=== PATIENT | male | born 1940 | race Caucasian/White ===

== ENCOUNTER 2020-12-06 12:00 | Inpatient (IN) ==
[2020-12-06] MEDS ORDERED: SODIUM CHLORIDE 0.9% 1000ML 250 ML IV ONE (14:10)
--- NOTE | 2020-12-06 14:16 | Emergency Department Note ---
Impression & Plan Pulmonary edema, Congestive heart failure, Weakness ED Provider Note Provider: Faraz Mathews MD DATE OF SERVICE: 12/06/2020 CHIEF COMPLAINT: Shortness of breath, not eating and drinking HISTORY OF PRESENT ILLNESS: Patient is a 80-year-old gentleman history of nonischemic cardiomyopathy, BPH, and PJ presenting here today via ambulance from home complaining over the past 2 to 3 days of some shortness of breath. Also states that he has not been eating and drinking well his tongue feels very dry and sticking the top of his mouth. Patient states anytime she tries to eat or drink he gets nauseous. Denies any chest pain or abdominal pain. Denies fever or chills. Patient states he is vaccinated for Covid. Patient states he has a small chronic amount of bilateral leg swelling but this is unchanged. Denies any diarrhea. No sick contacts reported. Patient states he supposed to use a CPAP at night but does not. Patient does states this is allergy season for him. Patient does report a bit of a cough. No recent travel. Patient also some generalized weakness. REVIEW OF SYSTEMS: A total of 10 review of systems was obtained and negative except as stated above in the HPI. PAST MEDICAL HISTORY: As noted above MEDICATIONS: Reviewed home medications SOCIAL HISTORY: Lives at home with , spends part of the year here in part of the year in [place] PHYSICAL EXAM: GENERAL: alert and oriented in no acute distress on stretcher Head: normocephalic and atraumatic EYES: No injection, discharge or icterus. NECK: Trachea midline. Supple. ENT: Mucous membranes pink however somewhat dry. LUNGS: Airway patent. No retractions. Breath sounds with crackles in the bases. HEART: Regular rate and rhythm. No chest wall tenderness ABDOMEN: Soft and non-tender, without guarding or rebound. SKIN: Acyanotic, warm, dry, without rashes EXTREMITIES: Without tenderness with some 1+ bilateral pedal edema. NEUROLOGICAL: No focal deficits. No aphasia. No facial droop or slurred speech. EK beats minute sinus rhythm occasional PVC and PAC. QTc 495. LVH findings. CONTINUOUS CARDIAC MONITORING: was ordered and showed a heart rate of 60s to 90s bpm in sinus rhythm occasional PVC and PAC Patient's laboratory studies and imaging reviewed. Differential includes Infection, dehydration, metabolic abnormality, hypo/hyperglycemia, electrolyte disturbance, anemia, hypoxia, cardiac sources, intracerebral event, toxicologic, neurologic, as well as other pathologies. IMPRESSION/MEDICAL DECISION MAKING: Patient reports limited intake and states his tongue feels very dry and does appear to have some dry mucosa on exam. Some mild bilateral leg edema is noted but he states this is baseline. Patient with some slight crackles in the bilateral bases of the lungs. Does have a history of some cardiomyopathy. Requiring intermittently 2 L of oxygen. Noncompliant with home CPAP may be contributing. No fevers or other infectious symptoms reported. Covid test was sent for completeness. Benign abdomen on exam and I doubt acute intra-abdominal pathology that to too much. Initially given a small IV fluid bolus 250mL as he states he has not been drinking well and appears quite dry in his oral mucosa Chest x-ray per radiology returned per radiology with concerns for cardiomegaly pulmonary edema small pleural effusions as well as some right midlung opacities. Patient without significant leukocytosis and again again fevers and lower suspicion this is pneumonia. Question fluid overload. On further review of scanned in cardiology records in February 2018 had an EF of 40 to 45% on outpatient echo. Given this we will give a small IV dose of Lasix. Patient denies any chest pain and does not have an significantly elevated troponin today. The minimal elevation questions chronic nature versus some fluid overload induced demand. Patient given aspirin. Will defer full anticoagulation this time. Given the x-ray findings lower suspicion this represents PE. Given his hypoxia and evidence of fluid overload believe further cardiac evaluation and diuresis on the inpatient basis is indicated. Patient was agreeable. Hospitalist was contacted. DIAGNOSIS: CHF, pulmonary edema, hypoxia, elevated troponin DISPOSITION: Hospitalist will evaluate Patient was agreeable with this plan. Past Med/Surg History Medical History (Updated 12/06/20 @ 17:47 by Speedy Vu MD) BPH (benign prostatic hyperplasia) Hearing difficulty Hyperlipidemia Kidney stones Lumbar spondylosis MVP (mitral valve prolapse) "MILD" -- follows w/ Dr. Noyola Osteoarthritis PVC (premature ventricular contraction) Sleep apnea no device as of yet -- appt on 12/07 to determine if device needed or not Stenosis, cervical spine Surgical History History of cardiac cath 4 YEARS AGO/NO STENTS History of cataract surgery left cataract 09/29/2018. 2mg versed, 50mcg fentanyl. no issues. 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 Hx of transurethral resection of prostate Family History Brother Prostate cancer Father Kidney stones Other No family history of adverse response to anesthesia Social History Smoking Status: Never smoker Second Hand Exposure: Yes (PREVIOUS EXPOSURE); Hx Alcohol Use: Yes Alcohol type: beer Hx Substance Use: No Preferred Language: Samoan Communication Ability: Effective Visual Impairment: Diminished Hearing Ability: Use of Hearing Aid Hygiene Teacher Required: No Beliefs That Will Affect Care: None marital status: Current Living Situation: Spouse current occupational status: retired Feels Safe at Home: Yes Childhood Exposure to Second-Hand Smoke: No caffeine: Yes (2 CUPS OF COFFEE DAILY) Dental Care, Regularly: Yes Physical Activity Frequency: Does not Exercise Physical Activity Frequency Comment: DUE TO PHYSICAL CONDITION Seatbelt Use: always Sunscreen Use: No Assistive Devices: Cane, Glasses, Hearing Aid - Bilateral and Walker Allergies Allergies Allergy/AdvReac Type Severity Reaction Status Date / Time Penicillins Allergy Severe Dizziness Verified 12/06/20 13:58 & SHORTNESS OF BREATH Home Meds Home Medications Medication Instructions Recorded Confirmed ibuprofen-diphenhydramine citrate 2 cap PO HS PRN 01/24/19 12/06/20 200 mg-38 mg tablet (Advil PM) cetirizine 10 mg tablet (Zyrtec) 5 mg PO DAILY PRN 09/21/19 12/06/20 metoprolol succinate 25 mg capsule 25 mg PO HS 01/12/20 12/06/20 sprinkle, ext. release 24 hr Brioschi 2 tsp PO DIRECTED PRN 12/06/20 12/06/20 naproxen sodium 220 mg tablet 440 mg PO BID PRN 12/06/20 12/06/20 (Aleve) Previous Rx's Medication Instructions Recorded CPAP Machine #1 ea 01/12/20 simvastatin 40 mg tablet 40 mg PO HS #90 tab 03/26/20 finasteride 5 mg tablet 5 mg PO HS #90 tab 04/16/20 silodosin 8 mg capsule (Rapaflo) 8 mg PO HS #90 cap 10/01/20 Results & Data (ED) Vital Signs Vital Signs - 24 hr 12/06/20 12:06 12/06/20 12:08 12/06/20 12:11 Temperature 36.9 C Temperature Source Oral Pulse Rate 92 H 100 H Pulse Rate [Apical] Pulse Rate from SpO2 Sensor 93 H Respiratory Rate 18 24 Respiratory Effort / Characteristics Non-Labored Spontaneous Short of Breath Respiratory Depth Shallow Shallow Respiratory Pattern Regular Blood Pressure 160/103 H 160/103 H Blood Pressure [Left Arm] Blood Pressure Mean 122 122 Blood Pressure Mean [Left Arm] Blood Pressure Position Semi-fowlers Blood Pressure Position [Left Arm] Pulse Oximetry 95 93 Oxygen Delivery Method Nasal Cannula Room Air Oxygen Flow Rate 2 Sepsis Recent Fever Within 48 Hours No Sepsis New/Unexplained Change in Mental Status No Sepsis Action Taken by Nursing No Action Required Oxygen Flow Rate - Titration Pulse Oximetry Post Tiitration 12/06/20 12:15 12/06/20 13:44 12/06/20 14:01 Temperature Temperature Source Pulse Rate 78 Pulse Rate [Apical] 69 Pulse Rate from SpO2 Sensor 77 Respiratory Rate 24 20 Respiratory Effort / Characteristics Respiratory Depth Respiratory Pattern Blood Pressure Blood Pressure [Left Arm] 154/75 H Blood Pressure Mean Blood Pressure Mean [Left Arm] 101 Blood Pressure Position Blood Pressure Position [Left Arm] Semi-fowlers Pulse Oximetry 88 L 94 96 Oxygen Delivery Method Room Air Nasal Cannula Nasal Cannula Oxygen Flow Rate 2 2 Sepsis Recent Fever Within 48 Hours Sepsis New/Unexplained Change in Mental Status Sepsis Action Taken by Nursing Oxygen Flow Rate - Titration 2 Pulse Oximetry Post Tiitration 95 12/06/20 14:19 12/06/20 16:00 12/06/20 16:34 Temperature Temperature Source Pulse Rate 81 Pulse Rate [Apical] 74 Pulse Rate from SpO2 Sensor 79 Respiratory Rate 16 Respiratory Effort / Characteristics Respiratory Depth Respiratory Pattern Blood Pressure 144/105 H Blood Pressure [Left Arm] 144/105 H Blood Pressure Mean 118 Blood Pressure Mean [Left Arm] 118 Blood Pressure Position Blood Pressure Position [Left Arm] Pulse Oximetry 95 98 97 Oxygen Delivery Method Nasal Cannula Nasal Cannula Oxygen Flow Rate 2 2 Sepsis Recent Fever Within 48 Hours Sepsis New/Unexplained Change in Mental Status Sepsis Action Taken by Nursing Oxygen Flow Rate - Titration Pulse Oximetry Post Tiitration 12/06/20 17:37 Temperature Temperature Source Pulse Rate 85 Pulse Rate [Apical] Pulse Rate from SpO2 Sensor 87 Respiratory Rate 24 Respiratory Effort / Characteristics Respiratory Depth Respiratory Pattern Blood Pressure 148/110 H Blood Pressure [Left Arm] Blood Pressure Mean 122 Blood Pressure Mean [Left Arm] Blood Pressure Position Blood Pressure Position [Left Arm] Pulse Oximetry 97 Oxygen Delivery Method Oxygen Flow Rate Sepsis Recent Fever Within 48 Hours Sepsis New/Unexplained Change in Mental Status Sepsis Action Taken by Nursing Oxygen Flow Rate - Titration Pulse Oximetry Post Tiitration Laboratory Data Result diagrams: 12/06/20 14:02 12/06/20 14:02 Lab Results 12/06/20 12/06/20 12/06/20 Range/Units 14:02 14:02 14:02 WBC 9.19 (4.8-10.8) K/uL RBC 4.37 L (4.7-6.1) M/uL Hgb 13.1 L (14.0-18.0) g/dL Hct 40.1 L (42-52) % MCV 91.8 (80-100) fL MCH 30.0 (25-34) pg MCHC 32.7 (32-36) g/dL RDW Std Deviation 55.5 H (36.4-46.3) fL RDW Coeff of Inderjit 16.6 H (11.5-14.5) % Plt Count 260 (130-400) K/uL MPV 9.6 (7.4-10.4) fL Immature Gran % (Auto) 0.2 % Neut % (Auto) 75.5 % Lymph % (Auto) 14.4 % Baker % (Auto) 8.1 % Eos % (Auto) 1.3 % Baso % (Auto) 0.5 % Neut # (Auto) 6.94 H (1.4-6.5) K/uL Lymph # (Auto) 1.32 (1.2-3.4) K/uL Baker # (Auto) 0.74 H (0.11-0.59) K/uL Eos # (Auto) 0.12 (0-0.5) K/uL Baso # (Auto) 0.05 (0-0.2) K/uL Immature Gran # (Auto) 0.02 (0.00-0.02) K/uL PT 13.0 H (9.0-12.0) Seconds INR 1.3 H (0.9-1.1) APTT 25.7 (21.0-31.0) Seconds PTT Ratio 1.0 Sodium 142 (136-145) mmol/L Potassium 3.6 (3.5-5.1) mmol/L Chloride 110 H (98-107) mmol/L Carbon Dioxide 26 (21-32) mmol/L Anion Gap 6.0 (3-11) BUN 18 (7-18) mg/dl Creatinine 0.99 (0.6-1.4) mg/dl Est Cr Clr Drug Dosing 62.5 ml/min Est GFR ( Amer) 83.6 ml/min Est GFR (Non-Af Amer) 72.1 ml/min BUN/Creatinine Ratio 18.1 (10-20) Glucose 99 (70-99) mg/dl Calcium 9.2 (8.5-10.1) mg/dl Magnesium 2.0 (1.8-2.4) mg/dl Total Bilirubin 2.2 H (0.2-1) mg/dl AST 18 (15-37) U/L ALT 18 (12-78) U/L Alkaline Phosphatase 90 (45-117) U/L Troponin I 0.080 H* (0-0.045) ng/ml NT-Pro-B Natriuret Pep 01570 H (0-1800) pg/ml Total Protein 6.8 (6.4-8.2) gm/dl Albumin 3.0 L (3.4-5.0) gm/dl Globulin 3.8 (2.5-4.0) gm/dl Albumin/Globulin Ratio 0.8 L (0.9-2) COVID-19 Eval Order SARS-CoV-2 (PCR) (Negative) 12/06/20 12/06/20 Range/Units 14:26 14:26 WBC (4.8-10.8) K/uL RBC (4.7-6.1) M/uL Hgb (14.0-18.0) g/dL Hct (42-52) % MCV (80-100) fL MCH (25-34) pg MCHC (32-36) g/dL RDW Std Deviation (36.4-46.3) fL RDW Coeff of Inderjit (11.5-14.5) % Plt Count (130-400) K/uL MPV (7.4-10.4) fL Immature Gran % (Auto) % Neut % (Auto) % Lymph % (Auto) % Baker % (Auto) % Eos % (Auto) % Baso % (Auto) % Neut # (Auto) (1.4-6.5) K/uL Lymph # (Auto) (1.2-3.4) K/uL Baker # (Auto) (0.11-0.59) K/uL Eos # (Auto) (0-0.5) K/uL Baso # (Auto) (0-0.2) K/uL Immature Gran # (Auto) (0.00-0.02) K/uL PT (9.0-12.0) Seconds INR (0.9-1.1) APTT (21.0-31.0) Seconds PTT Ratio Sodium (136-145) mmol/L Potassium (3.5-5.1) mmol/L Chloride (98-107) mmol/L Carbon Dioxide (21-32) mmol/L Anion Gap (3-11) BUN (7-18) mg/dl Creatinine (0.6-1.4) mg/dl Est Cr Clr Drug Dosing ml/min Est GFR ( Amer) ml/min Est GFR (Non-Af Amer) ml/min BUN/Creatinine Ratio (10-20) Glucose (70-99) mg/dl Calcium (8.5-10.1) mg/dl Magnesium (1.8-2.4) mg/dl Total Bilirubin (0.2-1) mg/dl AST (15-37) U/L ALT (12-78) U/L Alkaline Phosphatase (45-117) U/L Troponin I (0-0.045) ng/ml NT-Pro-B Natriuret Pep (0-1800) pg/ml Total Protein (6.4-8.2) gm/dl Albumin (3.4-5.0) gm/dl Globulin (2.5-4.0) gm/dl Albumin/Globulin Ratio (0.9-2) COVID-19 Eval Order Covid19 at [facility] SARS-CoV-2 (PCR) NEGATIVE (Negative) Administered Medications Discontinued Medications Aspirin (Aspirin Chew 324 Mg) 324 mg PO NOW STA Stop: 12/06/20 15:57 Last Admin: 12/06/20 16:05 Dose: 324 mg Documented by: [id number] Furosemide (Furosemide 40 Mg/4 Ml Vial) 40 mg IV NOW STA Stop: 12/06/20 15:37 Last Admin: 12/06/20 15:44 Dose: 40 mg Documented by: [id number] Sodium Chloride (Nss 1000ml) 250 mls @ 999 mls/hr IV .Q16M ONE Stop: 12/06/20 14:25 Last Infusion: 12/06/20 14:42 Dose: 0 mls/hr Documented by: [id number] Admin: 12/06/20 14:26 Dose: 999 mls/hr Documented by: [id number] Imaging Data Radiologist's Impression: Chest X-Ray 12/06/20 14:10 XR chest 1V portable HISTORY: 80 years-old Male Dyspnea acute shortness of breath COMPARISON: None TECHNIQUE: Portable AP view of the chest FINDINGS: Cardiac silhouette is enlarged. Pulmonary vascular congestion with interstitial coarsening. Small pleural effusions. Bibasilar and right midlung airspace opacities. Degenerative changes of the shoulders and spine. IMPRESSION: 1. Cardiomegaly with pulmonary edema. 2. Small pleural effusions with bibasilar and right midlung airspace opacities. ACT 112: Negative or not required by law. The above report was generated using voice recognition software. It may contain grammatical, syntax or spelling errors. Electronically signed by: Oliverio Hsu M.D. 12/06/2020 2:44 PM Discharge Plan Visit Data Chief Complaint: Shortness of Breath/Dyspnea ED Provider: Faraz Mathews Discharge Problem: Pulmonary edema, Congestive heart failure, Weakness Patient Disposition: Being Evaluated by Hospitalist Discharge Instructions Interventions: ED Discharge Assessment Last Done: 12/06/20 17:53 Forms Stand Alone Forms: [employer] Prescriptions Prescriptions: No Action simvastatin 40 mg tablet 40 mg PO HS Qty: 90 RF: 3 finasteride 5 mg tablet 5 mg PO HS Qty: 90 RF: 3 silodosin [Rapaflo] 8 mg capsule 8 mg PO HS Qty: 90 RF: 3 cetirizine [Zyrtec] 10 mg tablet 5 mg PO DAILY PRN (Reason: Allergy Symptoms) RF: 0 metoprolol succinate 25 mg capsule,sprinkle,ER 24hr 25 mg PO HS RF: 0 (DME) CPAP Machine Misc See Rx Instructions .MEDSUPPLY Qty: 1 RF: 0 Advil PM 200-38 mg Tablet 2 cap PO HS PRN (Reason: Nasal Congestion) RF: 0 naproxen sodium [Aleve] 220 mg Tablet 440 mg PO BID PRN (Reason: Pain) RF: 0 Brioschi 2 tsp PO DIRECTED PRN (Reason: antacid) RF: 0 Referrals Referrals: Peter Sykes MD [Primary Care Provider] - Discharge Problem: Pulmonary edema Qualifiers: Chronicity: acute Qualified Code(s): J81.0 - Acute pulmonary edema Congestive heart failure Qualifiers: Heart failure type: systolic Heart failure chronicity: acute on chronic Qualified Code(s): I50.23 - Acute on chronic systolic (congestive) heart failure
[2020-12-06 14:31] LABS: Basophils # (auto) 0.05 K/uL (0-0.2); Basophils % (auto) 0.5 %; Eosinophils # (auto) 0.12 K/uL (0-0.5); Eosinophils % (auto) 1.3 %; Hematocrit (blood only) 40.1 % (42-52); Hemoglobin 13.1 g/dL (14.0-18.0); Immature Granulocytes # (auto) 0.02 K/uL (0.00-0.02); Immature Granulocytes % (auto) 0.2 %; Lymphocytes # (auto) 1.32 K/uL (1.2-3.4); Lymphocytes % (auto) 14.4 %; Mean Corpuscular Hgb Conc 32.7 g/dL (32-36); Mean Corpuscular Volume 91.8 fL (80-100); Mean Platelet Volume 9.6 fL (7.4-10.4); Monocytes # (auto) 0.74 K/uL (0.11-0.59); Monocytes % (auto) 8.1 %; Neutrophils # (auto) 6.94 K/uL (1.4-6.5); Neutrophils % (auto) 75.5 %; Platelet Count 260 K/uL (130-400); RDW Coefficient of Variation 16.6 % (11.5-14.5); RDW Standard Deviation 55.5 fL (36.4-46.3); Red Blood Count 4.37 M/uL (4.7-6.1); White Blood Count 9.19 K/uL (4.8-10.8)
[2020-12-06 14:38] LABS: BUN Creatinine Ratio 18.1 (10-20); Calcium 9.2 mg/dl (8.5-10.1); Creatinine Clr Calc Pharmacy 62.5 ml/min; Est GFR (African American) 83.6 ml/min; Est GFR (Non-African American) 72.1 ml/min; Potassium 3.6 mmol/L (3.5-5.1)
[2020-12-06 14:42] LABS: INR 1.3 (0.9-1.1); Partial Thromboplastin Time 25.7 Seconds (21.0-31.0)
--- NOTE | 2020-12-06 14:45 | XRay Report ---
XR chest 1V portable HISTORY: 80 years-old Male Dyspnea acute shortness of breath COMPARISON: None TECHNIQUE: Portable AP view of the chest FINDINGS: Cardiac silhouette is enlarged. Pulmonary vascular congestion with interstitial coarsening. Small ple ural effusions. Bibasilar and right midlung airspace opacities. Degenerative changes of the shoulders and spine. IMPRESSION: 1. Cardiomegaly with pulmonary edema. 2. Small pleural effusions with bibasilar and right midlung airspace opacities. ACT 112: Negative or not required by law. The above report was generated using voice recognition software. It may contain grammatical, syntax o r spelling errors. Electronically signed by: Oliverio Hsu M.D. 12/06/2020 2:44 PM
[2020-12-06 14:48] LABS: Albumin Globulin Ratio 0.8 (0.9-2); Bilirubin,Total 2.2 mg/dl (0.2-1); Globulin 3.8 gm/dl (2.5-4.0); Total Protein 6.8 gm/dl (6.4-8.2); Troponin I 0.08 ng/ml (0-0.045)
[2020-12-06] MEDS ORDERED: FUROSEMIDE 40 MG/4 ML VIAL IV STA ×2 (15:36→19:00)
[2020-12-06] MEDS ORDERED: ASPIRIN CHEW 324 MG PO STA (15:56)
--- NOTE | 2020-12-06 17:08 | History & Physical Report ---
Date of Service December 06, 2020 History of Present Illness Primary Care Provider: Peter Sykes MD Allergies Allergy/AdvReac Type Severity Reaction Status Date / Time Penicillins Allergy Severe Dizziness Verified 12/06/20 13:58 & SHORTNESS OF BREATH Home Medications Medication Instructions Recorded Confirmed Type ibuprofen-diphenhydramine citrate 2 cap PO HS PRN 01/24/19 12/06/20 History 200 mg-38 mg tablet (Advil PM) cetirizine 10 mg tablet (Zyrtec) 5 mg PO DAILY PRN 09/21/19 12/06/20 History CPAP Machine #1 ea 01/12/20 01/12/20 Rx metoprolol succinate 25 mg capsule 25 mg PO HS 01/12/20 12/06/20 History sprinkle, ext. release 24 hr simvastatin 40 mg tablet 40 mg PO HS #90 tab 03/26/20 12/06/20 Rx finasteride 5 mg tablet 5 mg PO HS #90 tab 04/16/20 12/06/20 Rx silodosin 8 mg capsule (Rapaflo) 8 mg PO HS #90 cap 10/01/20 12/06/20 Rx Brioschi 2 tsp PO DIRECTED PRN 12/06/20 12/06/20 History naproxen sodium 220 mg tablet 440 mg PO BID PRN 12/06/20 12/06/20 History (Aleve) Past Med/Surg History Medical History (Updated 12/06/20 @ 15:53 by Faraz Mathews M.D.) BPH (benign prostatic hyperplasia) Hearing difficulty Hyperlipidemia Kidney stones Lumbar spondylosis MVP (mitral valve prolapse) "MILD" -- follows w/ Dr. Noyola Osteoarthritis PVC (premature ventricular contraction) Sleep apnea no device as of yet -- appt on 12/07 to determine if device needed or not Stenosis, cervical spine Surgical History History of cardiac cath 4 YEARS AGO/NO STENTS History of cataract surgery left cataract 09/29/2018. 2mg versed, 50mcg fentanyl. no issues. 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 Hx of transurethral resection of prostate Family History Brother Prostate cancer Father Kidney stones Other No family history of adverse response to anesthesia Social History Smoking Status: Never smoker Second Hand Exposure: Yes (PREVIOUS EXPOSURE); Hx Alcohol Use: Yes Alcohol type: beer Hx Substance Use: No Preferred Language: Mexican Communication Ability: Effective Visual Impairment: Diminished Hearing Ability: Use of Hearing Aid Appraiser Irrigation Tax Required: No Beliefs That Will Affect Care: None marital status: Current Living Situation: Spouse current occupational status: retired Feels Safe at Home: Yes Childhood Exposure to Second-Hand Smoke: No caffeine: Yes (2 CUPS OF COFFEE DAILY) Dental Care, Regularly: Yes Physical Activity Frequency: Does not Exercise Physical Activity Frequency Comment: DUE TO PHYSICAL CONDITION Seatbelt Use: always Sunscreen Use: No Assistive Devices: Cane, Glasses, Hearing Aid - Bilateral and Walker Results & Data Results & Data ([facility]) Vital Signs (Past 12 Hours) Vital Signs Temp Pulse Pulse Resp BP BP Pulse Ox 12/06/20 16:00 74 16 144/105 H 98 12/06/20 14:19 95 12/06/20 14:01 69 20 154/75 H 96 12/06/20 13:44 78 24 94 12/06/20 12:15 88 L 12/06/20 12:08 36.9 C 100 H 24 160/103 H 93 12/06/20 12:06 92 H 18 160/103 H 95 PG Care Time/CCT Total # of Minutes Spent Total Time Spent with Patient: Total time spent is greater than 50% in coordination of care (as documented) at patient's floor/unit and/or counseling patient: Coding
--- NOTE | 2020-12-06 17:51 | History & Physical Report ---
Date of Service December 06, 2020 Assessment & Plan (1) Acute on chronic systolic CHF (congestive heart failure): Plan: Picture most consistent with acute on chronic systolic heart failureIV Lasix; repeat echo; on metoprolol succinate; continue for now; cardiology input (2) Acute respiratory failure with hypoxia: Plan: Secondary to #1; diuresis (3) Elevated troponin: Plan: Type IIdue to demand ischemia; low-dose aspirin okay; lipid panel for risk stratificationroom increase intensity (4) HTN (hypertension): Plan: At present diuresis; continue home metoprololreassess (5) Hyperlipidemia: Plan: Continue home statin; lipid panel as above (6) BPH (benign prostatic hyperplasia): Plan: Continue finasteride and silodosin (7) PJ (obstructive sleep apnea): Plan: untreated; might need to address, to the extent contributing to decompensation/ Plan: Desires DNR; preventative subcutaneous Lovenox History of Present Illness Chief Complaint: Shortness of breath Primary Care Provider: Peter Sykes MD 80-year-old very pleasant male with a history of hypertension, BPH, hyperlipidemia, obstructive sleep apnea (not using NIV) presents with about 3 days history of shortness of breath; no fever; no angina; reports lower extremity edema but says chronic -since here; in the ER, he was found to be hypoxic but same was easily corrected with 2 L oxygen via nasal cannula. Lab data revealed markedly elevated brain natruretic peptide, mildly elevated troponin, mild anemia; x-ray chest revealed cardiomegaly and pulmonary edema. EKG revealed minor ST-T changes, couplets; he was referred to our service for admission for further evaluation and management. Past records reveal echocardiogram ejection fraction 40 to 45% with global hypokinesis in 2019. Allergies Allergy/AdvReac Type Severity Reaction Status Date / Time Penicillins Allergy Severe Dizziness Verified 12/06/20 13:58 & SHORTNESS OF BREATH Home Medications Medication Instructions Recorded Confirmed Type ibuprofen-diphenhydramine citrate 2 cap PO HS PRN 01/24/19 12/06/20 History 200 mg-38 mg tablet (Advil PM) cetirizine 10 mg tablet (Zyrtec) 5 mg PO DAILY PRN 09/21/19 12/06/20 History CPAP Machine #1 ea 01/12/20 01/12/20 Rx metoprolol succinate 25 mg capsule 25 mg PO HS 01/12/20 12/06/20 History sprinkle, ext. release 24 hr simvastatin 40 mg tablet 40 mg PO HS #90 tab 03/26/20 12/06/20 Rx finasteride 5 mg tablet 5 mg PO HS #90 tab 04/16/20 12/06/20 Rx silodosin 8 mg capsule (Rapaflo) 8 mg PO HS #90 cap 10/01/20 12/06/20 Rx Brioschi 2 tsp PO DIRECTED PRN 12/06/20 12/06/20 History naproxen sodium 220 mg tablet 440 mg PO BID PRN 12/06/20 12/06/20 History (Aleve) Past Med/Surg History Medical History (Updated 12/06/20 @ 19:57 by Speedy Vu MD) BPH (benign prostatic hyperplasia) Hearing difficulty Hyperlipidemia Kidney stones Lumbar spondylosis MVP (mitral valve prolapse) "MILD" -- follows w/ Dr. Noyola Osteoarthritis PVC (premature ventricular contraction) Sleep apnea no device as of yet -- appt on 12/07 to determine if device needed or not Stenosis, cervical spine Surgical History History of cardiac cath 4 YEARS AGO/NO STENTS History of cataract surgery left cataract 09/29/2018. 2mg versed, 50mcg fentanyl. no issues. 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 Hx of transurethral resection of prostate Family History Brother Prostate cancer Father Kidney stones Other No family history of adverse response to anesthesia Social History Smoking Status: Never smoker Second Hand Exposure: Yes (PREVIOUS EXPOSURE); Hx Alcohol Use: Yes Alcohol type: beer Hx Substance Use: No Preferred Language: Croatian Communication Ability: Effective Visual Impairment: Diminished Hearing Ability: Use of Hearing Aid Business Support Required: No Beliefs That Will Affect Care: None marital status: Current Living Situation: Spouse current occupational status: retired Feels Safe at Home: Yes Childhood Exposure to Second-Hand Smoke: No caffeine: Yes (2 CUPS OF COFFEE DAILY) Dental Care, Regularly: Yes Physical Activity Frequency: Does not Exercise Physical Activity Frequency Comment: DUE TO PHYSICAL CONDITION Seatbelt Use: always Sunscreen Use: No Assistive Devices: Cane, Glasses, Hearing Aid - Bilateral and Walker Review of Systems Review of Systems: ALL systems reviewed and negative except as noted in HPI or otherwise stated Physical Exam Physical Exam: Constitutional and general: Mild distress, looks biologic age Head and face: No puffiness, atraumatic Eyes: No scleral icterus, extraocular movements normal Neck: Supple, + JVD Musculoskeletal: No acute joint swelling, no bony abnormalities Skin/dermatologic/integument: Punctate rash lower extremities; erythematous rash trunk Hematologic and lymphatic: pallor +, no petechia Gastrointestinal/abdomen: Nondistended, soft, nonacute Neurologic: Cranial nerves intact, nonfocal Psychiatry: Awake, alert, pleasant, communicative Cardiovascular: Heart rhythm regular, no rub, no murmur, no gallop Respiratory: Chest movements equal, no use of accessory muscles, nasal crepts Extremities: 2+ edema, no cyanosis Results & Data Results & Data ([facility]) Vital Signs (Past 12 Hours) Vital Signs Temp Pulse Pulse Resp BP BP Pulse Ox 12/06/20 16:00 74 16 144/105 H 98 12/06/20 14:19 95 12/06/20 14:01 69 20 154/75 H 96 12/06/20 13:44 78 24 94 12/06/20 12:15 88 L 12/06/20 12:08 36.9 C 100 H 24 160/103 H 93 12/06/20 12:06 92 H 18 160/103 H 95 Code Status & VTE Plan Code Status DNR/DNI VTE Prophylaxis Plan VTE Prophylaxis will be ordered: Yes Critical Care Time 65 minutes PG Care Time/CCT Total # of Minutes Spent Total Time Spent with Patient: Total time spent is greater than 50% in coordination of care (as documented) at patient's floor/unit and/or counseling patient: Coding Level of Care Code 55371 Initial Inpt Care Lvl 3 Diagnoses HTN (hypertension) I10 Hyperlipidemia E78.5 BPH (benign prostatic hyperplasia) N40.0 Acute on chronic systolic CHF (congestive heart failure) I50.23 Acute respiratory failure with hypoxia J96.01 Elevated troponin R77.8 PJ (obstructive sleep apnea) G47.33
[2020-12-06] MEDS ORDERED: MAGNESIUM HYDROXIDE SUSP 30 ML UDC PO PRN (19:00)
[2020-12-06] MEDS ORDERED: POTASSIUM CHLORIDE 20 MEQ/15 ML UDC PO SCH (20:15)
[2020-12-06] MEDS ORDERED: METOPROLOL SUCC 25MG EXT REL TAB PO SCH (21:00)
[2020-12-06] MEDS: FINASTERIDE 5 MG TAB PO SCH (21:11)
[2020-12-06] MEDS: METOPROLOL SUCC 50MG EXT REL TAB PO SCH (21:11)
[2020-12-06] MEDS: FUROSEMIDE 40 MG in SYRINGE 0 ML IV SCH (21:12)
[2020-12-06] MEDS: SIMVASTATIN 40 MG TAB PO SCH (21:12)
[2020-12-07] MEDS: SILODOSIN: ORDER AWAITING ACTION SCH ×3 (00:59→16:37)
--- NOTE | 2020-12-07 06:02 | Electrocardiogram Report ---
Test Reason : Blood Pressure : / mmHG Vent. Rate : 097 BPM Atrial Rate : 097 BPM P-R Int : 182 ms QRS Dur : 108 ms QT Int : 390 ms P-R-T Axes : 069 018 090 degrees QTc Int : 495 ms Sinus rhythm with occasional , and consecutive Premature ventricular complexes and Premature atrial c omplexes Left ventricular hypertrophy with repolarization abnormality Prolonged QT Abnormal ECG No previous ECGs available Confirmed by Julio Bedoya ([id number]) on 12/07/2020 6:02:13 AM Referred By: REFERRED SELF Confirmed By:Julio Bedoya
[2020-12-07 07:30] LABS: Basophils # (auto) 0.05 K/uL (0-0.2); Basophils % (auto) 0.5 %; Eosinophils # (auto) 0.42 K/uL (0-0.5); Eosinophils % (auto) 4.5 %; Hematocrit (blood only) 41.8 % (42-52); Hemoglobin 13.4 g/dL (14.0-18.0); Immature Granulocytes # (auto) 0.02 K/uL (0.00-0.02); Immature Granulocytes % (auto) 0.2 %; Lymphocytes # (auto) 1.94 K/uL (1.2-3.4); Lymphocytes % (auto) 20.6 %; Mean Corpuscular Hemoglobin 29.9 pg (25-34); Mean Corpuscular Hgb Conc 32.1 g/dL (32-36); Mean Corpuscular Volume 93.3 fL (80-100); Mean Platelet Volume 10.2 fL (7.4-10.4); Monocytes # (auto) 0.76 K/uL (0.11-0.59); Monocytes % (auto) 8.1 %; Neutrophils # (auto) 6.23 K/uL (1.4-6.5); Neutrophils % (auto) 66.1 %; Platelet Count 263 K/uL (130-400); RDW Coefficient of Variation 16.7 % (11.5-14.5); RDW Standard Deviation 56.7 fL (36.4-46.3); Red Blood Count 4.48 M/uL (4.7-6.1); White Blood Count 9.42 K/uL (4.8-10.8)
[2020-12-07 07:58] LABS: Potassium 3.5 mmol/L (3.5-5.1)
[2020-12-07 08:25] LABS: Calcium 8.9 mg/dl (8.5-10.1); Creatinine Clr Calc Pharmacy 56.2 ml/min; Est GFR (African American) 73.6 ml/min; Est GFR (Non-African American) 63.5 ml/min
[2020-12-07] MEDS: ASPIRIN 81 MG ECTAB PO SCH (08:35)
[2020-12-07] MEDS: ENOXAPARIN INJ 40 MG/0.4 ML SYR SQ SCH (08:35)
--- NOTE | 2020-12-07 08:35 | Hospitalist Progress Note ---
Date of Service December 07, 2020 Assessment & Plan (1) Acute on chronic systolic CHF (congestive heart failure): Plan: Picture most consistent with acute on chronic systolic heart failurecontinue IV Lasix; echo pending I intentionally held off ZBIGNIEW inhibitor awaiting cardiology input in case they consider Entresto Still hypervolemic though bettercontinue diuresis (2) Acute respiratory failure with hypoxia: Plan: Secondary to #1; diuresis (3) Elevated troponin: Plan: Type IIdue to demand ischemia; low-dose aspirin okay; lipid panel for risk stratification pendingroom increase intensity (4) HTN (hypertension): Plan: Metoprolol succinate increased since blood pressure were generouswill also help in ectopy (5) Hyperlipidemia: Plan: Continue home statin; lipid panel as above (6) BPH (benign prostatic hyperplasia): Plan: Continue finasteride and silodosin (7) PJ (obstructive sleep apnea): Plan: untreated; might need to address, to the extent contributing to decompensation Plan: Desires DNR; preventative subcutaneous Lovenox; Maintain electrolytes Admission and Anticipated Discharge Date Admission Date: December 06, 2020 Subjective Follow-up of presentation with shortness of breathdoing better; still on 2 L oxygen via mask since was uncomfortable with nasal cannula Physical Exam Physical Exam: Constitutional and general: Mild distress, looks biologic age Head and face: No puffiness, atraumatic Eyes: No scleral icterus, extraocular movements normal Neck: Supple, + JVD Musculoskeletal: No acute joint swelling, no bony abnormalities Skin/dermatologic/integument: Punctate rash lower extremities; erythematous rash trunk Hematologic and lymphatic: pallor +, no petechia Gastrointestinal/abdomen: Nondistended, soft, nonacute Neurologic: Cranial nerves intact, nonfocal Psychiatry: Awake, alert, pleasant, communicative Cardiovascular: Heart rhythm regular, no rub, no murmur, no gallop Respiratory: Chest movements equal, no use of accessory muscles, nasal crepts Extremities: 2+ edema, no cyanosis Results & Data Results & Data ([facility]) Vital Signs (Past 12 Hours) Vital Signs Temp Pulse Pulse Resp BP Pulse Ox 12/07/20 07:15 36.4 C L 56 L 18 134/85 98 12/06/20 22:41 36.3 C L 80 18 151/96 H 94 12/06/20 21:09 70 138/70 Laboratory Results Laboratory Results - last 24 hr 12/06/20 12/06/20 12/06/20 14:02 14:02 14:02 WBC 9.19 RBC 4.37 L Hgb 13.1 L Hct 40.1 L MCV 91.8 MCH 30.0 MCHC 32.7 RDW Std Deviation 55.5 H RDW Coeff of Inderjit 16.6 H Plt Count 260 MPV 9.6 Immature Gran % (Auto) 0.2 Neut % (Auto) 75.5 Lymph % (Auto) 14.4 Benson % (Auto) 8.1 Eos % (Auto) 1.3 Baso % (Auto) 0.5 Neut # (Auto) 6.94 H Lymph # (Auto) 1.32 Benson # (Auto) 0.74 H Eos # (Auto) 0.12 Baso # (Auto) 0.05 Immature Gran # (Auto) 0.02 PT 13.0 H INR 1.3 H APTT 25.7 PTT Ratio 1.0 Sodium 142 Potassium 3.6 Chloride 110 H Carbon Dioxide 26 Anion Gap 6.0 BUN 18 Creatinine 0.99 Est Cr Clr Drug Dosing 62.5 Est GFR ( Amer) 83.6 Est GFR (Non-Af Amer) 72.1 BUN/Creatinine Ratio 18.1 Glucose 99 Calcium 9.2 Magnesium 2.0 Total Bilirubin 2.2 H AST 18 ALT 18 Alkaline Phosphatase 90 Troponin I 0.080 H* NT-Pro-B Natriuret Pep 47625 H Total Protein 6.8 Albumin 3.0 L Globulin 3.8 Albumin/Globulin Ratio 0.8 L Triglycerides Cholesterol LDL Cholesterol, Calc VLDL Cholesterol, Calc HDL Cholesterol Cholesterol/HDL Ratio COVID-19 Eval Order SARS-CoV-2 (PCR) 12/06/20 12/06/20 12/06/20 14:26 14:26 20:11 WBC RBC Hgb Hct MCV MCH MCHC RDW Std Deviation RDW Coeff of Inderjit Plt Count MPV Immature Gran % (Auto) Neut % (Auto) Lymph % (Auto) Benson % (Auto) Eos % (Auto) Baso % (Auto) Neut # (Auto) Lymph # (Auto) Benson # (Auto) Eos # (Auto) Baso # (Auto) Immature Gran # (Auto) PT INR APTT PTT Ratio Sodium Potassium Chloride Carbon Dioxide Anion Gap BUN Creatinine Est Cr Clr Drug Dosing Est GFR ( Amer) Est GFR (Non-Af Amer) BUN/Creatinine Ratio Glucose Calcium Magnesium Total Bilirubin AST ALT Alkaline Phosphatase Troponin I 0.075 H* NT-Pro-B Natriuret Pep Total Protein Albumin Globulin Albumin/Globulin Ratio Triglycerides Cholesterol LDL Cholesterol, Calc VLDL Cholesterol, Calc HDL Cholesterol Cholesterol/HDL Ratio COVID-19 Eval Order Covid19 at [facility] SARS-CoV-2 (PCR) NEGATIVE 12/07/20 12/07/20 06:28 06:28 WBC 9.42 RBC 4.48 L Hgb 13.4 L Hct 41.8 L MCV 93.3 MCH 29.9 MCHC 32.1 RDW Std Deviation 56.7 H RDW Coeff of Inderjit 16.7 H Plt Count 263 MPV 10.2 Immature Gran % (Auto) 0.2 Neut % (Auto) 66.1 Lymph % (Auto) 20.6 Benson % (Auto) 8.1 Eos % (Auto) 4.5 Baso % (Auto) 0.5 Neut # (Auto) 6.23 Lymph # (Auto) 1.94 Benson # (Auto) 0.76 H Eos # (Auto) 0.42 Baso # (Auto) 0.05 Immature Gran # (Auto) 0.02 PT INR APTT PTT Ratio Sodium 143 Potassium 3.5 Chloride 107 Carbon Dioxide 30 Anion Gap 6.0 BUN 19 H Creatinine 1.10 Est Cr Clr Drug Dosing 56.2 Est GFR ( Amer) 73.6 Est GFR (Non-Af Amer) 63.5 BUN/Creatinine Ratio 17.0 Glucose 75 Calcium 8.9 Magnesium 2.0 Total Bilirubin Pending AST Pending ALT 16 Alkaline Phosphatase Pending Troponin I Pending NT-Pro-B Natriuret Pep Total Protein Pending Albumin 3.0 L Globulin Pending Albumin/Globulin Ratio Pending Triglycerides Pending Cholesterol Pending LDL Cholesterol, Calc Pending VLDL Cholesterol, Calc Pending HDL Cholesterol Pending Cholesterol/HDL Ratio Pending COVID-19 Eval Order SARS-CoV-2 (PCR) PG Care Time/CCT Total # of Minutes Spent Total Time Spent with Patient: Total time spent is greater than 50% in coordination of care (as documented) at patient's floor/unit and/or counseling patient: Coding Level of Care Code 18984 Subseq Hosp Care Lvl 3 Diagnoses Acute on chronic systolic CHF (congestive heart failure) I50.23 Acute respiratory failure with hypoxia J96.01 Elevated troponin R77.8 HTN (hypertension) I10 Hyperlipidemia E78.5 BPH (benign prostatic hyperplasia) N40.0 PJ (obstructive sleep apnea) G47.33
[2020-12-07] MEDS: FUROSEMIDE 40 MG in SYRINGE 0 ML IV SCH ×2 (08:36→17:08)
[2020-12-07 08:38] LABS: Albumin Globulin Ratio 0.8 (0.9-2); Bilirubin,Total 2.3 mg/dl (0.2-1); Troponin I 0.085 ng/ml (0-0.045)
[2020-12-07] MEDS: POTASSIUM CHLORIDE 20 MEQ/15 ML UDC PO SCH (09:44)
--- NOTE | 2020-12-07 10:16 | Cardiology Consultation ---
Date of Consultation December 07, 2020 Assessment & Plan (1) Acute on chronic systolic CHF (congestive heart failure): Clinical history, physical exam and laboratory results consistent with acute decompensated systolic CHF resulting in fluid overload and pulmonary edema manifesting as dyspnea. Pt has been improving significantly with diuresis via IV Lasix 40 mg. Dyspnea largely resolved, weaning off NC O2. Echo done today- EF reduced to 30-35%, moderate left atrial dilation, noted mild aortic and azpy-ic-swzrendm mitral insufficiency, mild PHTN with RVSP 40 mmHg. Low concern for acute ischemic cardiomyopathy. Given pt's BPs have remained stable and consistently 130s+ systolic, initiation of Entresto warranted to improve chronic heart failure management. Entresto 49 mg/51 mg BID started today and to be continued outpatient with re-evaluation by outpatient code official Dr. Noyola in 2 months for repeat echo. May be discharged tomorrow if remaining hemodynamically stable and asymptomatic with continued diuresis. (2) Acute respiratory failure with hypoxia: Improving with supplemental O2 and diuresis. (3) Elevated troponin: Secondary to demand ischemia, continue daily aspirin in hospital. (4) HTN (hypertension): Continue Toprol 50 mg qHs, initiate Entresto 49/51 mg BID. (5) Hyperlipidemia: Continue home statin; lipid panel as above. (6) BPH (benign prostatic hyperplasia): Continue finasteride and silodosin. (7) PJ (obstructive sleep apnea): Does not use CPAP, can address outpatient with PCP. Supervising Physician Co-Signing Physician Notes Patient seen and examined with Dr. Whitaker. Agree with his assessment and plan. Admitted with acute on chronic systolic CHF. History of nonischemic cardiomyopathy. Current ejection fraction 30-35% with global hypokinesis. Agree with intravenous Lasix and oral metoprolol succinate. Would add Entresto to his regimen. Repeat echocardiogram after cardiac medications maximized. Follow-up with Dr. Noyola. History of Present Illness Reason for Consultation: Acute on chronic heart failure Attending Physician: Speedy Vu MD History of Present Illness 80 yo M with PMH of systolic CHF, MVP, PVCs and PACs, HTN, HLD, BPH s/p laser reduction, PJ without CPAP, lumbar spondylosis, osteoarthritis presenting with acute dyspnea of approximately 3 days' duration. Pt reports gradual onset of dyspnea, non-constant, accompanied by fatigue, chest congestion but denies associated chest pain, no increased swelling beyond baseline, or fever. Dyspnea is not exacerbated by exertion. Pt hypoxic to 88% in ED but no acute respiratory distress and O2 saturation corrected easily with 2L O2 via NC. Admission labs significant for elevated BNP, serial troponins ~0.08-0.09, CXR demonstrating cardiomegaly with pulmonary edema, EKG unremarkable, no evidence of previous PVCs/PACs. On exam, pt reports resolution of dyspnea, denies chest congestion, chest pain, no acute complaints. Tolerating PO well, BM normal, voiding multiple times with Lasix therapy ongoing. Pt not ambulating much secondary to back pain from lumbar spondylosis. States chronic feet swelling is at baseline. Previous cardiac history includes cardiac catheterization in 2014, performed due to exertional dyspnea and inability to tolerate stress test. Cath found no evidence of CAD, no interventions done. Pt follows with Dr. Noyola, is currently on regimen of Toprol 25 mg and Simvastatin 40 mg for heart failure, no longer on ASA due to easy bruising in past. Most recent echo February 2019 demonstrated 40-45% with moderate mitral regurgitation and LV hypokinesis. Family history includes father and paternal grandmother both passing away from CHF at age 90s and 85 respectively. Mother of CVA at age 94. Previous surgical history includes bilateral cataract surgery, hernia repair, knee replacement and prostate laser resection and cauterization. Pt to see urology for TURP candidacy within next few months. Social history- never smoker, alcohol use- 2-3 beers per week. No illicit substances. 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 Allergies Allergy/AdvReac Type Severity Reaction Status Date / Time Penicillins Allergy Severe Dizziness Verified 12/06/20 13:58 & SHORTNESS OF BREATH Home Medications Medication Instructions Recorded Confirmed Type ibuprofen-diphenhydramine citrate 2 cap PO HS PRN 01/24/19 12/06/20 History 200 mg-38 mg tablet (Advil PM) cetirizine 10 mg tablet (Zyrtec) 5 mg PO DAILY PRN 09/21/19 12/06/20 History CPAP Machine #1 ea 01/12/20 01/12/20 Rx metoprolol succinate 25 mg capsule 25 mg PO HS 01/12/20 12/06/20 History sprinkle, ext. release 24 hr simvastatin 40 mg tablet 40 mg PO HS #90 tab 03/26/20 12/06/20 Rx finasteride 5 mg tablet 5 mg PO HS #90 tab 04/16/20 12/06/20 Rx silodosin 8 mg capsule (Rapaflo) 8 mg PO HS #90 cap 10/01/20 12/06/20 Rx Brioschi 2 tsp PO DIRECTED PRN 12/06/20 12/06/20 History naproxen sodium 220 mg tablet 440 mg PO BID PRN 12/06/20 12/06/20 History (Aleve) Patient History Medical History BPH (benign prostatic hyperplasia) Hearing difficulty Hyperlipidemia Kidney stones Lumbar spondylosis MVP (mitral valve prolapse) "MILD" -- follows w/ Dr. Noyola Osteoarthritis PVC (premature ventricular contraction) Sleep apnea no device as of yet -- appt on 12/07 to determine if device needed or not Stenosis, cervical spine Surgical History History of cardiac cath 4 YEARS AGO/NO STENTS History of cataract surgery left cataract 09/29/2018. 2mg versed, 50mcg fentanyl. no issues. 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 Hx of transurethral resection of prostate Family History Brother Prostate cancer Father Kidney stones Other No family history of adverse response to anesthesia Social History Smoking Status: Never smoker Second Hand Exposure: No; Do You Dip or Chew Tobacco: No; Tobacco Cessation Education Requested by Patient: No Hx Alcohol Use: Yes (6 pack lasts two weeks) Alcohol type: beer Hx Substance Use: No Preferred Language: Thai Communication Ability: Effective Visual Impairment: Diminished Hearing Ability: Use of Hearing Aid Batch Analyst Required: No Beliefs That Will Affect Care: None marital status: Current Living Situation: Spouse current occupational status: retired Other Information That Helps Us Care for You: No Feels Safe at Home: Yes Safety Concerns: Feels Safe At This Time Childhood Exposure to Second-Hand Smoke: No caffeine: Yes (2 CUPS OF COFFEE DAILY) Dental Care, Regularly: Yes Physical Activity Frequency: Does not Exercise Physical Activity Frequency Comment: DUE TO PHYSICAL CONDITION Seatbelt Use: always Sunscreen Use: No Assistive Devices: Glasses Review of Systems Review of Systems: ALL systems reviewed and negative except as noted in HPI or otherwise stated Physical Exam Physical Exam: Constitutional and general: No acute distress, well-appearing, well-nourished Head and face: No facial swelling, atraumatic Eyes: No scleral icterus, extraocular movements normal Neck: Supple, no JVD Cardiovascular: Regular rhythm, normal S1 and S2, S3 gallop, no murmur appreciated Respiratory: Minor crackles over bilateral lower lung bases, otherwise clear to auscultation, no use of accessory muscles Extremities: +1 pitting edema of b/l LE, no cyanosis, strong radial and distal pulses Musculoskeletal: No acute joint swelling, no bony abnormalities Skin/dermatologic/integument: Minor senile purpura on chest Hematologic and lymphatic: no pallor or petechiae Gastrointestinal/abdomen: Soft, nontender, nondistended, no fluid wave Neurologic: No focal motor or sensory deficits Psychiatry: Awake, alert, pleasant, communicative Results & Data ([facility]) Vital Signs (Past 12 Hours) Vital Signs Temp Pulse Pulse Resp BP Pulse Ox 12/07/20 07:15 36.4 C L 56 L 18 134/85 98 12/06/20 22:41 36.3 C L 80 18 151/96 H 94 PG Care Time/CCT Total # of Minutes Spent Total Time Spent with Patient: Total time spent is greater than 50% in coordination of care (as documented) at patient's floor/unit and/or counseling patient: Coding Level of Care Code 10060 Inpt Consult Level 4 Diagnoses Acute on chronic systolic CHF (congestive heart failure) I50.23 Acute respiratory failure with hypoxia J96.01 Elevated troponin R77.8 HTN (hypertension) I10 Hyperlipidemia E78.5 BPH (benign prostatic hyperplasia) N40.0 PJ (obstructive sleep apnea) G47.33 Resident Activity Tracking Resident Involvement: Resident Care Provided Care Provided: Adult [facility] Medicine
--- NOTE | 2020-12-07 11:11 | XCELERA ---
[id number]
[2020-12-07] MEDS: SACUBITRIL-VALSARTAN 49/51 MG TAB PO SCH ×2 (12:28→20:51)
--- NOTE | 2020-12-07 13:29 | Electrocardiogram Report ---
Test Reason : Blood Pressure : / mmHG Vent. Rate : 068 BPM Atrial Rate : 068 BPM P-R Int : 168 ms QRS Dur : 094 ms QT Int : 452 ms P-R-T Axes : 061 002 095 degrees QTc Int : 480 ms Normal sinus rhythm Left ventricular hypertrophy with repolarization abnormality Nonspecific T wave abnormality Prolonged QT Abnormal ECG When compared with ECG of 06-DEC-2020 12:11, Premature ventricular complexes are no longer Present Premature atrial complexes are no longer Present Nonspecific T wave abnormality now evident in Anterior leads Confirmed by Bran Graham ([id number]) on 12/07/2020 1:29:05 PM Referred By: REFERRED SELF Confirmed By:Bran Graham
[2020-12-07] MEDS ORDERED: SIMETHICONE 80 MG CHEW PO PRN (16:14)
[2020-12-07] MEDS: FINASTERIDE 5 MG TAB PO SCH (20:51)
[2020-12-07] MEDS: METOPROLOL SUCC 50MG EXT REL TAB PO SCH (20:51)
[2020-12-07] MEDS: SIMVASTATIN 40 MG TAB PO SCH (21:05)
[2020-12-08] MEDS: SILODOSIN: ORDER AWAITING ACTION SCH ×4 (00:39→20:57)
[2020-12-08] MEDS: POTASSIUM CHLORIDE 20 MEQ/15 ML UDC PO SCH (09:00)
[2020-12-08] MEDS: ENOXAPARIN INJ 40 MG/0.4 ML SYR SQ SCH (09:01)
[2020-12-08] MEDS: FUROSEMIDE 40 MG in SYRINGE 0 ML IV SCH (09:01)
[2020-12-08] MEDS: ASPIRIN 81 MG ECTAB PO SCH (09:02)
[2020-12-08] MEDS: SACUBITRIL-VALSARTAN 49/51 MG TAB PO SCH ×2 (09:03→20:13)
--- NOTE | 2020-12-08 09:06 | Hospitalist Progress Note ---
Date of Service December 08, 2020 Assessment & Plan (1) Acute on chronic systolic CHF (congestive heart failure): Plan: Echo confirmed; cardiology input and initiation of Entresto notedvolume status bettercut back Lasix; watch for overdiuresis (2) Acute respiratory failure with hypoxia: Plan: Secondary to #1; diuresis (3) Elevated troponin: Plan: Type IIdue to demand ischemia; low-dose aspirin okay; LDL in general less than 70; no change at (4) HTN (hypertension): Plan: Good readings; no change (5) Hyperlipidemia: Plan: Continue home statin (6) BPH (benign prostatic hyperplasia): Plan: Continue finasteride and silodosin (7) PJ (obstructive sleep apnea): Plan: untreated; might need to address, to the extent contributing to decompensation- should see sleep medicine as outpatient Plan: Desires DNR; preventative subcutaneous Lovenox; Hypokalemiareplace Might need short-term rehabOT/PT consulted; family concerned Admission and Anticipated Discharge Date Admission Date: December 06, 2020 Subjective Follow-up of presentation with shortness of breathdoing better; still on 2 L oxygen Physical Exam Physical Exam: Constitutional and general: Mild distress, looks biologic age Head and face: No puffiness, atraumatic Eyes: No scleral icterus, extraocular movements normal Neck: Supple, + JVD Musculoskeletal: No acute joint swelling, no bony abnormalities Skin/dermatologic/integument: Punctate rash lower extremities; erythematous rash trunk Hematologic and lymphatic: pallor +, no petechia Gastrointestinal/abdomen: Nondistended, soft, nonacute Neurologic: Cranial nerves intact, nonfocal Psychiatry: Awake, alert, pleasant, communicative Cardiovascular: Heart rhythm regular, no rub, no murmur, no gallop Respiratory: Chest movements equal, no use of accessory muscles, nasal crepts Extremities: 2+ edema, no cyanosis Results & Data Results & Data ([facility]) Vital Signs (Past 12 Hours) Vital Signs Temp Pulse Pulse Resp BP Pulse Ox 12/08/20 07:54 36.4 C L 51 L 16 117/66 97 12/07/20 23:08 36.8 C 82 17 118/71 96 PG Care Time/CCT Total # of Minutes Spent Total Time Spent with Patient: Total time spent is greater than 50% in c oordination of care (as documented) at patient's floor/unit and/or counseling patient: Coding Level of Care Code 40891 Subseq Hosp Care Lvl 2 Diagnoses Acute on chronic systolic CHF (congestive heart failure) I50.23 Acute respiratory failure with hypoxia J96.01 Elevated troponin R77.8 HTN (hypertension) I10 Hyperlipidemia E78.5 BPH (benign prostatic hyperplasia) N40.0 PJ (obstructive sleep apnea) G47.33
[2020-12-08 09:46] LABS: BUN Creatinine Ratio 17.5 (10-20); Calcium 9.3 mg/dl (8.5-10.1); Creatinine Clr Calc Pharmacy 55.2 ml/min; Est GFR (Non-African American) 62.1 ml/min; Potassium 3.2 mmol/L (3.5-5.1)
[2020-12-08] MEDS ORDERED: POTASSIUM CHLORIDE 20 MEQ/15 ML UDC PO STA (11:22)
[2020-12-08] MEDS: METOPROLOL SUCC 50MG EXT REL TAB PO SCH (20:12)
[2020-12-08] MEDS: FINASTERIDE 5 MG TAB PO SCH (20:12)
[2020-12-08] MEDS: SIMVASTATIN 40 MG TAB PO SCH (20:13)
[2020-12-09] MEDS: SILODOSIN: ORDER AWAITING ACTION SCH ×3 (07:40→23:53)
[2020-12-09] MEDS: ACETAMINOPHEN 325 MG TAB PO PRN (07:40)
[2020-12-09] MEDS ORDERED: FUROSEMIDE 40 MG in SYRINGE 0 ML IV SCH (09:00)
[2020-12-09] MEDS: ASPIRIN 81 MG ECTAB PO SCH (09:14)
[2020-12-09] MEDS: SACUBITRIL-VALSARTAN 49/51 MG TAB PO SCH ×2 (09:14→20:05)
[2020-12-09] MEDS: ENOXAPARIN INJ 40 MG/0.4 ML SYR SQ SCH (09:14)
[2020-12-09] MEDS: POTASSIUM CHLORIDE 20 MEQ/15 ML UDC PO SCH (09:15)
[2020-12-09 09:27] LABS: Albumin Level 2.9 gm/dl (3.4-5.0); Calcium 9.3 mg/dl (8.5-10.1); Creatinine Clr Calc Pharmacy 58.3 ml/min; Est GFR (Non-African American) 66.4 ml/min; Magnesium 1.9 mg/dl (1.8-2.4); Potassium 3.3 mmol/L (3.5-5.1)
[2020-12-09 09:30] LABS: Albumin Globulin Ratio 0.7 (0.9-2); Globulin 4.2 gm/dl (2.5-4.0); Total Protein 7.1 gm/dl (6.4-8.2)
[2020-12-09] MEDS ORDERED: POTASSIUM CHLORIDE 20 MEQ/15 ML UDC PO STA (12:09)
[2020-12-09] MEDS ORDERED: BUMETANIDE 1 MG TAB PO SCH (12:15)
--- NOTE | 2020-12-09 12:19 | Hospitalist Progress Note ---
Date of Service December 09, 2020 Assessment & Plan (1) Acute on chronic systolic CHF (congestive heart failure): Plan: Echo confirmed; on Entresto; volume status much betterswitch to p.o. Bumex starting at 1 mgoptimal diuretic dose will need to be ascertained; would to discuss with cardiology any question of LifeVest/ICD (2) Acute respiratory failure with hypoxia: Plan: Secondary to #1; improved with diuresis; I ordered nocturnal pulse ox since he has untreated sleep apnea Should have 2-step prior to discharge if going home (3) Elevated troponin: Plan: Type IIdue to demand ischemia; low-dose aspirin (4) HTN (hypertension): Plan: Acceptable readings; no change (5) Hyperlipidemia: Plan: Continue home statin (6) BPH (benign prostatic hyperplasia): Plan: Continue finasteride and silodosin (7) PJ (obstructive sleep apnea): Plan: untreated; might need to address, to the extent contributing to decompensation- should see sleep medicine as outpatient; for now, nocturnal pulse oximetry ordered as above Plan: Hypokalemiareplace PT recommends STR Admission and Anticipated Discharge Date Admission Date: December 06, 2020 Subjective Follow-up of presentation with shortness of breathdoing better; currently on room air Physical Exam Physical Exam: Constitutional and general: Mild distress, looks biologic age Head and face: No puffiness, atraumatic Eyes: No scleral icterus, extraocular movements normal Neck: Supple, minimal JVD Musculoskeletal: No acute joint swelling, no bony abnormalities Skin/dermatologic/integument: Punctate rash lower extremities; erythematous rash trunk Hematologic and lymphatic: pallor +, no petechia Gastrointestinal/abdomen: Nondistended, soft, nonacute Neurologic: Cranial nerves intact, nonfocal Psychiatry: Awake, alert, pleasant, communicative Cardiovascular: Heart rhythm regular, no rub, no murmur, no gallop Respiratory: Chest movements equal, no use of accessory muscles, clear Extremities: Trace edema, no cyanosis Results & Data Results & Data ([facility]) Vital Signs (Past 12 Hours) Vital Signs Temp Pulse Resp BP Pulse Ox 12/09/20 11:41 36.6 C 71 18 102/54 L 93 12/09/20 08:00 36.4 C L 67 20 118/68 94 Laboratory Results Laboratory Results - last 24 hr 12/09/20 08:30 Sodium 141 Potassium 3.3 L Chloride 103 Carbon Dioxide 31 Anion Gap 7.0 BUN 19 H Creatinine 1.06 Est Cr Clr Drug Dosing 58.3 Est GFR ( Amer) 77.0 Est GFR (Non-Af Amer) 66.4 BUN/Creatinine Ratio 18.0 Glucose 97 Calcium 9.3 Magnesium 1.9 Total Bilirubin 2.0 H AST 13 L ALT 15 Alkaline Phosphatase 94 Total Protein 7.1 Albumin 2.9 L Globulin 4.2 H Albumin/Globulin Ratio 0.7 L PG Care Time/CCT Total # of Minutes Spent Total Time Spent with Patient: Total time spent is greater than 50% in coordination of care (as documented) at patient's floor/unit and/or counseling patient: Coding Level of Care Code 92597 Subseq Hosp Care Lvl 2 Diagnoses Acute on chronic systolic CHF (congestive heart failure) I50.23 Acute respiratory failure with hypoxia J96.01 Elevated troponin R77.8 HTN (hypertension) I10 Hyperlipidemia E78.5 BPH (benign prostatic hyperplasia) N40.0 PJ (obstructive sleep apnea) G47.33
[2020-12-09] MEDS: BUMETANIDE 1 MG TAB PO SCH (13:13)
[2020-12-09] MEDS: FINASTERIDE 5 MG TAB PO SCH (20:05)
[2020-12-09] MEDS: METOPROLOL SUCC 50MG EXT REL TAB PO SCH (20:05)
[2020-12-09] MEDS: SIMVASTATIN 40 MG TAB PO SCH (20:05)
[2020-12-10] MEDS: SILODOSIN: ORDER AWAITING ACTION SCH ×3 (08:10→23:08)
[2020-12-10] MEDS: ENOXAPARIN INJ 40 MG/0.4 ML SYR SQ SCH (08:11)
[2020-12-10] MEDS: SACUBITRIL-VALSARTAN 49/51 MG TAB PO SCH ×2 (08:11→19:57)
[2020-12-10] MEDS: ASPIRIN 81 MG ECTAB PO SCH (08:11)
[2020-12-10] MEDS: BUMETANIDE 1 MG TAB PO SCH (08:11)
[2020-12-10] MEDS: ACETAMINOPHEN 325 MG TAB PO PRN ×2 (08:14→16:09)
[2020-12-10] MEDS: POTASSIUM CHLORIDE 20 MEQ/15 ML UDC PO SCH (08:15)
[2020-12-10] MEDS ORDERED: BUMETANIDE 1 MG TAB PO SCH (09:00)
[2020-12-10 09:04] LABS: Albumin Level 2.7 gm/dl (3.4-5.0); BUN Creatinine Ratio 16.6 (10-20); Calcium 8.8 mg/dl (8.5-10.1); Creatinine Clr Calc Pharmacy 51.5 ml/min; Est GFR (African American) 66.3 ml/min; Est GFR (Non-African American) 57.2 ml/min
[2020-12-10 09:23] LABS: Albumin Globulin Ratio 0.7 (0.9-2); Bilirubin,Total 1.8 mg/dl (0.2-1); Total Protein 6.7 gm/dl (6.4-8.2)
[2020-12-10] MEDS: SIMVASTATIN 40 MG TAB PO SCH (19:56)
[2020-12-10] MEDS: FINASTERIDE 5 MG TAB PO SCH (19:57)
[2020-12-10] MEDS: METOPROLOL SUCC 50MG EXT REL TAB PO SCH (19:57)
--- NOTE | 2020-12-10 21:09 | Hospitalist Progress Note ---
Date of Service December 10, 2020 Assessment & Plan (1) Acute on chronic systolic CHF (congestive heart failure): Plan: Echo confirmed; on Entresto; volume status much betterswitch to p.o. Bumex starting at 1 mgoptimal diuretic dose will need to be ascertained; would to discuss with cardiology any question of LifeVest/ICD (2) Acute respiratory failure with hypoxia: Plan: Secondary to #1; improved with diuresis; I ordered nocturnal pulse ox since he has untreated sleep apnea Should have 2-step prior to discharge if going home working on SNF. (3) Elevated troponin: Plan: Type IIdue to demand ischemia; low-dose aspirin (4) HTN (hypertension): Plan: Acceptable readings; no change (5) Hyperlipidemia: Plan: Continue home statin (6) BPH (benign prostatic hyperplasia): Plan: Continue finasteride and silodosin (7) PJ (obstructive sleep apnea): Plan: untreated; might need to address, to the extent contributing to decompensation- should see sleep medicine as outpatient; for now, nocturnal pulse oximetry ordered as above Plan: Hypokalemiareplace PT recommends STR Admission and Anticipated Discharge Date Admission Date: December 06, 2020 Subjective Patient reports breathing better/ Review of Systems Review of Systems: All systems reviewed & are unremarkable except as noted in HPI & below Physical Exam Physical Exam: Constitutional and general: No longer in distress, looks biologic age Head and face: No puffiness, atraumatic Eyes: No scleral icterus, extraocular movements normal Neck: Supple, minimal JVD Musculoskeletal: No acute joint swelling, no bony abnormalities Skin/dermatologic/integument: Punctate rash lower extremities; erythematous rash trunk Hematologic and lymphatic: pallor +, no petechia Gastrointestinal/abdomen: Nondistended, soft, nonacute Neurologic: Cranial nerves intact, nonfocal Psychiatry: Awake, alert, pleasant, communicative Cardiovascular: Heart rhythm regular, no rub, no murmur, no gallop Respiratory: Chest movements equal, no use of accessory muscles, clear Extremities: Trace edema, no cyanosis Results & Data Results & Data ([facility]) Vital Signs (Past 12 Hours) Vital Signs Temp Pulse Pulse Resp BP BP Pulse Ox 12/10/20 19:58 62 113/68 12/10/20 15:30 36.5 C 60 18 99/61 L 93 PG Care Time/CCT Total # of Minutes Spent Total Time Spent with Patient: Total time spent is greater than 50% in coordination of care (as documented) at patient's floor/unit and/or counseling patient: Coding Level of Care Code 99123 Subseq Hosp Care Lvl 2 Diagnoses Acute on chronic systolic CHF (congestive heart failure) I50.23 Acute respiratory failure with hypoxia J96.01 Elevated troponin R77.8 HTN (hypertension) I10 Hyperlipidemia E78.5 BPH (benign prostatic hyperplasia) N40.0 PJ (obstructive sleep apnea) G47.33 Time Spent (min) 32
[2020-12-11] MEDS: ACETAMINOPHEN 325 MG TAB PO PRN ×2 (08:23→20:47)
[2020-12-11] MEDS: SILODOSIN: ORDER AWAITING ACTION SCH ×3 (08:23→23:14)
[2020-12-11] MEDS: SACUBITRIL-VALSARTAN 49/51 MG TAB PO SCH ×2 (08:23→20:44)
[2020-12-11] MEDS: ASPIRIN 81 MG ECTAB PO SCH (08:24)
[2020-12-11] MEDS: POTASSIUM CHLORIDE 20 MEQ/15 ML UDC PO SCH (08:24)
[2020-12-11] MEDS: BUMETANIDE 1 MG TAB PO SCH (08:24)
[2020-12-11] MEDS: ENOXAPARIN INJ 40 MG/0.4 ML SYR SQ SCH (08:24)
[2020-12-11 09:04] LABS: Albumin Globulin Ratio 0.6 (0.9-2); Albumin Level 2.6 gm/dl (3.4-5.0); BUN Creatinine Ratio 20.4 (10-20); Bilirubin,Total 1.8 mg/dl (0.2-1); Calcium 9.1 mg/dl (8.5-10.1); Creatinine Clr Calc Pharmacy 64.4 ml/min; Est GFR (African American) 86.8 ml/min; Est GFR (Non-African American) 74.9 ml/min; Globulin 4.1 gm/dl (2.5-4.0); Magnesium 2.1 mg/dl (1.8-2.4); Potassium 3.9 mmol/L (3.5-5.1); Total Protein 6.7 gm/dl (6.4-8.2)
[2020-12-11] MEDS: SIMVASTATIN 40 MG TAB PO SCH (20:43)
[2020-12-11] MEDS: FINASTERIDE 5 MG TAB PO SCH (20:43)
[2020-12-11] MEDS: METOPROLOL SUCC 50MG EXT REL TAB PO SCH (20:43)
--- NOTE | 2020-12-11 20:55 | Hospitalist Progress Note ---
Date of Service December 11, 2020 Assessment & Plan (1) Acute on chronic systolic CHF (congestive heart failure): Plan: Echo confirmed; on Entresto; volume status much betterswitch to p.o. Bumex starting at 1 mgoptimal diuretic dose will need to be ascertained; would to discuss with cardiology any question of LifeVest/ICD will continue diuretics. plan is to discharge tomorrow. (2) Acute respiratory failure with hypoxia: Plan: Secondary to #1; improved with diuresis; I ordered nocturnal pulse ox since he has untreated sleep apnea Should have 2-step prior to discharge if going home working on SNF. (3) Elevated troponin: Plan: Type IIdue to demand ischemia; low-dose aspirin (4) HTN (hypertension): Plan: Acceptable readings; no change (5) Hyperlipidemia: Plan: Continue home statin (6) BPH (benign prostatic hyperplasia): Plan: Continue finasteride and silodosin (7) PJ (obstructive sleep apnea): Plan: untreated; might need to address, to the extent contributing to decompensation- should see sleep medicine as outpatient; for now, nocturnal pulse oximetry ordered as above Plan: Hypokalemiareplace PT recommends STR Admission and Anticipated Discharge Date Admission Date: December 06, 2020 Subjective Tried calling Khloe, his daughter but she did not tow picker the phone. Patient reports feeling better however, he does not feel at baseline. Review of Systems Review of Systems: All systems reviewed & are unremarkable except as noted in HPI & below Physical Exam Physical Exam: Constitutional and general: No longer in distress, looks biologic age Head and face: No puffiness, atraumatic Eyes: No scleral icterus, extraocular movements normal Neck: Supple, minimal JVD Musculoskeletal: No acute joint swelling, no bony abnormalities Skin/dermatologic/integument: Punctate rash lower extremities; erythematous rash trunk Hematologic and lymphatic: pallor +, no petechia Gastrointestinal/abdomen: Nondistended, soft, nonacute Neurologic: Cranial nerves intact, nonfocal Psychiatry: Awake, alert, pleasant, communicative Cardiovascular: Heart rhythm regular, no rub, no murmur, no gallop Respiratory: Chest movements equal, no use of accessory muscles, clear Extremities: Trace edema, no cyanosis Results & Data Results & Data ([facility]) Vital Signs (Past 12 Hours) Vital Signs Temp Pulse Resp BP Pulse Ox 12/11/20 14:52 36.9 C 64 18 111/66 95 PG Care Time/CCT Total # of Minutes Spent Total Time Spent with Patient: Total time spent is greater than 50% in coordination of care (as documented) at patient's floor/unit and/or counseling patient: Coding Level of Care Code 91036 Subseq Hosp Care Lvl 2 Diagnoses Acute on chronic systolic CHF (congestive heart failure) I50.23 Acute respiratory failure with hypoxia J96.01 Elevated troponin R77.8 HTN (hypertension) I10 Hyperlipidemia E78.5 BPH (benign prostatic hyperplasia) N40.0 PJ (obstructive sleep apnea) G47.33 Time Spent (min) 25
[2020-12-12 08:35] LABS: Albumin Globulin Ratio 0.6 (0.9-2); Albumin Level 2.6 gm/dl (3.4-5.0); BUN Creatinine Ratio 24.2 (10-20); Bilirubin,Total 1.4 mg/dl (0.2-1); Calcium 9.2 mg/dl (8.5-10.1); Creatinine Clr Calc Pharmacy 65.1 ml/min; Est GFR (African American) 87.9 ml/min; Est GFR (Non-African American) 75.8 ml/min; Globulin 4.1 gm/dl (2.5-4.0); Magnesium 1.9 mg/dl (1.8-2.4); Potassium 3.9 mmol/L (3.5-5.1); Total Protein 6.7 gm/dl (6.4-8.2)
[2020-12-12] MEDS: SACUBITRIL-VALSARTAN 49/51 MG TAB PO SCH (09:26)
[2020-12-12] MEDS: BUMETANIDE 1 MG TAB PO SCH (09:26)
[2020-12-12] MEDS: ASPIRIN 81 MG ECTAB PO SCH (09:27)
[2020-12-12] MEDS: POTASSIUM CHLORIDE 20 MEQ/15 ML UDC PO SCH (09:27)
[2020-12-12] MEDS: ENOXAPARIN INJ 40 MG/0.4 ML SYR SQ SCH (09:28)
[2020-12-12] MEDS: SILODOSIN: ORDER AWAITING ACTION SCH (09:37)
--- NOTE | 2020-12-14 07:16 | Discharge Summary ---
Date of Service December 12, 2020 Admission HPI Per Admitting Provider 80-year-old very pleasant male with a history of hypertension, BPH, hyperlipidemia, obstructive sleep apnea (not using NIV) presents with about 3 days history of shortness of breath; no fever; no angina; reports lower extremity edema but says chronic -since here; in the ER, he was found to be hypoxic but same was easily corrected with 2 L oxygen via nasal cannula. Lab data revealed markedly elevated brain natruretic peptide, mildly elevated troponin, mild anemia; x-ray chest revealed cardiomegaly and pulmonary edema. EKG revealed minor ST-T changes, couplets; he was referred to our service for admission for further evaluation and management. Past records reveal echocardiogram ejection fraction 40 to 45% with global hypokinesis in 2019. Principal Diagnosis Acute on chronic systolic CHF Discharge Exam Constitutional and general: No longer in distress, looks biologic age Head and face: No puffiness, atraumatic Eyes: No scleral icterus, extraocular movements normal Neck: Supple, minimal JVD Musculoskeletal: No acute joint swelling, no bony abnormalities Skin/dermatologic/integument: Punctate rash lower extremities; erythematous rash trunk Hematologic and lymphatic: pallor +, no petechia Gastrointestinal/abdomen: Nondistended, soft, nonacute Neurologic: Cranial nerves intact, nonfocal Psychiatry: Awake, alert, pleasant, communicative Cardiovascular: Heart rhythm regular, no rub, no murmur, no gallop Respiratory: Chest movements equal, no use of accessory muscles, clear Extremities: Trace edema, no cyanosis Discharge Data Allergies Allergy/AdvReac Type Severity Reaction Status Date / Time Penicillins Allergy Severe Dizziness Verified 12/06/20 13:58 & SHORTNESS OF BREATH Consultations 12/06/20 15:55 ED Decision to Admit Stat 12/06/20 18:03 Consult Cardiology Routine Hospital Course (1) Acute on chronic systolic CHF (congestive heart failure): Echo confirmed; on Entresto; volume status much betterswitch to p.o. Bumex starting at 1 mgoptimal diuretic dose will need to be ascertained; would to discuss with cardiology any question of LifeVest/ICD Patient was diuresed and he improved with medications. (2) Acute respiratory failure with hypoxia: Secondary to #1; improved with diuresis; I ordered nocturnal pulse ox since he has untreated sleep apnea Transfered to SNF (3) Elevated troponin: Type IIdue to demand ischemia; low-dose aspirin (4) HTN (hypertension): Acceptable readings; no change (5) Hyperlipidemia: Continue home statin (6) BPH (benign prostatic hyperplasia): Continue finasteride and silodosin (7) PJ (obstructive sleep apnea): untreated; might need to address, to the extent contributing to decompensation-should see sleep medicine as outpatient; Hypokalemiareplace PT recommends STR Total Time Total Time Spent Total Time Spent (In Minutes): 32 Discharge Plan Discharge Items Patient Disposition: Transfer [facility] Reason For Visit: SHORTNESS OF BREATH Discharge Diagnosis: CHF systolic Activity: Resume your previous activity Non-emergency contact: Primary Care Provider Call non-emergency contact if: you have any medication questions Follow-up/Referrals: Peter Sykes MD [Primary Care Provider] - 12/19/20 3:30 pm John Noyola DO [Physician] - 12/28/20 10:50 am (You will be seeing Jessica Sykes in that Dr. Noyola has no upcoming openings at this time.) Diet: Heart Healthy Addtl Attending Provider Instructions: Please follow up with your guest house manager Dr. Noyola within 7 days of your discharge from the hospital. Check BMP in 1 week Call your Primary Care doctor if any of the following symptoms or problems start or get worse: * Shortness of breath or difficulty breathing * Wake up at night short of breath * Chest pain * Cough * Swelling of your hands, feet, or legs * More fatigued or tired with your normal activity * Palpitations - sudden fast heart beats WEIGHT * Weigh yourself every morning after using the bathroom. * Use the same scale. * Wear the same amount of clothing. * Write your weight down on a chart. * Call your Primary Care doctor if you gain more than 2-3 pounds in 1-2 days. MEDICATIONS * Use this discharge instruction sheet for medication instructions. * Take your medications at the time your doctor ordered. * Do not skip a dose of your medicines. * If you miss a dose of medicine, take it as soon as possible, but DO NOT DOUBLE A DOSE. * Read your medicine information when you get home. * Know all of the side effects of your medicine. If in doubt, ask your pharmacist * Call your Primary Care doctor's office if you have any side effects. * Be sure all of your doctors know what medicine and herbs you take (including cold, flu, and herbal medicine). Take the following with you to your follow-up doctor appointments: * Weight Chart * Medication List * List of questions Do not drink excessive alcohol, beer or wine. Pending Studies at Discharge: No Stand-Alone Forms: My [facility] Skilled Items Patient informed of condition?: Yes DNR: Yes Discharge Level of Care: Acute rehab Communicable Disease: No Discharge Prognosis: Stable Lines: None Urinary Catheter: No Medications and DC Order Prescriptions: New metoprolol succinate 50 mg Tablet Extended Release 24 Hr 50 mg PO HS Qty: 30 RF: 0 Entresto 49-51 mg Tablet 1 tab PO BID Qty: 60 RF: 0 acetaminophen 325 mg Tablet 650 mg PO Q4H PRN (Reason: pain) Qty: 30 RF: 0 aspirin 81 mg Tablet,Delayed Release (Dr/Ec) 81 mg PO DAILY Qty: 30 RF: 0 bumetanide 1 mg Tablet 1 mg PO QAM Qty: 30 RF: 0 potassium chloride 10 mEq capsule, extended release 30 meq PO DAILY Qty: 90 RF: 0 Continued simvastatin 40 mg tablet 40 mg PO HS Qty: 90 RF: 3 finasteride 5 mg tablet 5 mg PO HS Qty: 90 RF: 3 silodosin [Rapaflo] 8 mg capsule 8 mg PO HS Qty: 90 RF: 3 cetirizine [Zyrtec] 10 mg tablet 5 mg PO DAILY PRN (Reason: Allergy Symptoms) RF: 0 (DME) CPAP Machine Misc See Rx Instructions .MEDSUPPLY Qty: 1 RF: 0 Brioschi 2 tsp PO DIRECTED PRN (Reason: antacid) RF: 0 Discontinued metoprolol succinate 25 mg capsule,sprinkle,ER 24hr 25 mg PO HS RF: 0 Advil PM 200-38 mg Tablet 2 cap PO HS PRN (Reason: Nasal Congestion) RF: 0 naproxen sodium [Aleve] 220 mg Tablet 440 mg PO BID PRN (Reason: Pain) RF: 0 Discharge Orders: Discharge Order (Routine); Ordered 12/12/20 Ordered By: Luis Enrique Harris Admission Data Admit Date/Time: 12/06/20 17:13 Attending Provider: Luis Enrique Harris Admit Provider: Speedy Vu Primary Care Provider: Peter Sykes Other Providers: Speedy Vu ; Bran Graham ; Danial [place] Other Interventions: Discharge Summary Assessment (RN) Last Done: 12/12/20 15:03 Coding Level of Care Code D/C DAY MANAGEMENT >30 MINS Diagnoses Acute on chronic systolic CHF (congestive heart failure) I50.23 Acute respiratory failure with hypoxia J96.01 Elevated troponin R77.8 HTN (hypertension) I10 Hyperlipidemia E78.5 BPH (benign prostatic hyperplasia) N40.0 PJ (obstructive sleep apnea) G47.33
== END 2020-12-12 15:22 | DRG 291 ==
LOC: ED 12:00 → 3N 17:13 → SUATTDRO 17:13 → 3N 17:53

== ENCOUNTER 2022-04-14 13:05 | Inpatient (IN) ==
[2022-04-14 15:52] LABS: Basophils # (auto) 0.06 K/uL (0-0.2); Basophils % (auto) 0.4 %; Eosinophils # (auto) 0.14 K/uL (0-0.50); Hematocrit (blood only) 43.9 % (40.1-51.0); Hemoglobin 14.9 g/dl (14.0-18.0); Immature Granulocytes # (auto) 0.09 K/uL (0.00-0.02); Immature Granulocytes % (auto) 0.7 %; Lymphocytes # (auto) 1.32 K/uL (1.2-3.4); Lymphocytes % (auto) 9.6 %; Mean Corpuscular Hemoglobin 30.3 pg (25.0-34.0); Mean Corpuscular Hgb Conc 33.9 g/dL (32.0-36.0); Mean Corpuscular Volume 89.4 fL (80.0-100.0); Mean Platelet Volume 9.6 fL (9.4-12.4); Monocytes # (auto) 1.53 K/uL (0.24-0.82); Monocytes % (auto) 11.1 %; Neutrophils # (auto) 10.64 K/uL (1.4-6.5); Neutrophils % (auto) 77.2 %; Platelet Count 411 K/uL (130-400); RDW Coefficient of Variation 14.1 % (11.5-14.5); RDW Standard Deviation 46.1 fL (36.4-46.3); Red Blood Count 4.91 M/uL (4.63-6.08); White Blood Count 13.78 K/ul (4.8-10.8)
[2022-04-14 16:18] LABS: Albumin Globulin Ratio 0.9 (0.9-2); Albumin Level 3.8 gm/dl (3.4-5.0); BUN Creatinine Ratio 32.6 (10-20); Bilirubin,Total 1.2 mg/dl (0.2-1.0); Calcium 9.5 mg/dl (8.5-10.1); Creatinine Clr Calc Pharmacy 32.5 ml/min; Est GFR (Non-African American) 33.6 ml/min; Globulin 4.3 gm/dl (2.5-4.0); Potassium 3.1 mmol/L (3.5-5.1); Total Protein 8.1 gm/dl (6.0-8.3)
[2022-04-14 16:31] LABS: Troponin I High Sensitivity 52.9 pg/ml (0-20)
[2022-04-14] MEDS ORDERED: SODIUM CHLORIDE 0.9% 1000ML 1,000 ML IV ONE (18:22)
[2022-04-14] MEDS ORDERED: POTASSIUM CHLORIDE CRTAB 20 MEQ TABCR PO STA (18:24)
--- NOTE | 2022-04-14 18:24 | Emergency Department Note ---
Impression & Plan RUFINO (acute kidney injury), Elevated troponin, Weakness, Fall, Leukocytosis, Hypokalemia ED Provider Note NAME: ARIANE BETANCOURT Jr AGE: 82 SEX: M : 1940 ARRIVES VIA: Ambulance INFORMANT: Patient, son ED PROVIDER(S): Jeremiah Gaona DO CHIEF COMPLAINT: fall and weakness HPI: Patient is an 82-year-old with a past medical history of CHF, hypertension, mitral regurg and mitral valve prolapse who presents the ER brought in by family for weakness. Patient lives at home with his who has dementia and the patient has been falling more over the past few days. They brought him in for recurrent falls. Denies any headache or change in vision. No chest pain or shortness of breath. No belly pain, nausea, vomiting, or diarrhea. No weakness or numbness in the arms or legs. No other exacerbating or remitting factors. He does complain of some mild right hip pain which is worse with movement. ROS: See above HPI for pertinent positives & negatives. A total of 10 systems reviewed and were otherwise negative. PAST MEDICAL HISTORY:See Below PAST SURGICAL HISTORY:See Below FAMILY HISTORY:See Below SOCIAL HISTORY:See Below HOME MEDICATIONS:See Below ALLERGIES:See Below VITALS:See Below PHYSICAL EXAMINATION: GENERAL: alert, well appearing, well nourished, no distress, non-toxic HEAD: normal cephalic, atraumatic EYE EXAM: normal conjunctiva, PERRL and EOM's grossly intact OROPHARYNX: no exudate, no erythema, lips, buccal mucosa, and tongue normal and mucous membranes are moist NECK: supple, no nuchal rigidity, no adenopathy, non-tender CHEST: stable to compression anteriorly and posteriorly LUNGS: clear to auscultation. Normal chest wall mechanics HEART: no murmurs, S1 normal and S2 normal ABDOMEN: abdomen soft, non-tender, normo-active bowel sounds, no masses, no rebound or guarding. PELVIS: stable to compression anteriorly and posteriorly BACK: Back is symmetrical on inspection and there is no deformity, no midline tenderness, no CVA tenderness. UPPER EXTREMITIES: full active and passive range of motion of all joints without tenderness to palpation LOWER EXTREMITIES: full active and passive range of motion of all joints without tenderness to palpation NEURO EXAM: Normal sensorium, cranial nerves II-XII grossly intact, normal speech, no gross weakness of arms, no gross weakness of legs. GCS: 15. MEDICAL DECISION MAKING: Patient is an 82-year-old gentleman who presents the ER for weakness and recurrent falls. IV was established blood was obtained. Labs show mildly stews 13,000. No significant anemia. BMP with mild hypokalemia 3.1. Creatinine 1.8 up from baseline 0.9. Troponin elevated at 52. TSH was unremarkable. COVID- negative. CT head was negative. X-rays of the hip and pelvis as well as chest and shoulder showed no acute fractures. Patient was given IV fluids updated at bedside. Discussed with Dr. Colunga admitted for further work-up and hopefully placement in the next 1 to 2 days. Triage Nursing notes reviewed. Limited review of prior medical records performed Vital Signs: reviewed and remarkable for no significant abnormalities Differential diagnosis: Differential diagnoses include major intracranial, cervical, spinal, thoracic, abdominal, pelvic and neurologic injury. Fracture, contusion, sprain, strain, laceration, abrasions included as well. ER treatment provided: See below Diagnostics interpreted by me: ECG: Sinus tachycardia rate of 110 Left axis No PVCs QTC [address] wave changes in the high lateral leads Cardiac Monitoring: An order was placed for continuous cardiac monitoring. The monitor shows a rate of 110 with sinus rhythm. Laboratory studies: As stated above and show below. Imaging studies: CT head was negative X-rays of the hip pelvis chest as well as shoulder showed no acute fractures Consultation(s): Discussed with David Colunga for further evaluation Procedures: none Critical Care: None Past Med/Surg History Medical History (Updated 04/15/22 @ 00:01 by Jeremiah Gaona DO) BPH (benign prostatic hyperplasia) Hearing difficulty Hyperlipidemia Kidney stones Lumbar spondylosis MVP (mitral valve prolapse) "MILD" -- follows w/ Dr. Noyola Osteoarthritis PVC (premature ventricular contraction) Sleep apnea no device as of yet -- appt on 12/07 to determine if device needed or not Stenosis, cervical spine Surgical History History of cardiac cath 4 YEARS AGO/NO STENTS History of cataract surgery left cataract 09/29/2018. 2mg versed, 50mcg fentanyl. no issues. 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 Hx of transurethral resection of prostate Family History Brother Prostate cancer Father Kidney stones Other No family history of adverse response to anesthesia Social History Smoking Status: Never smoker Second Hand Exposure: No; Hx Alcohol Use: Yes (6 pack lasts two weeks) Alcohol type: beer Hx Substance Use: No Preferred Language: Ghanaian Communication Ability: Effective Visual Impairment: Diminished Hearing Ability: Use of Hearing Aid Anesthesiology Tech Required: No Beliefs That Will Affect Care: None marital status: Current Living Situation: Spouse current occupational status: retired Feels Safe at Home: Yes Childhood Exposure to Second-Hand Smoke: No caffeine: Yes (2 CUPS OF COFFEE DAILY) Dental Care, Regularly: Yes Physical Activity Frequency: Does not Exercise Physical Activity Frequency Comment: DUE TO PHYSICAL CONDITION Seatbelt Use: always Sunscreen Use: No Assistive Devices: Walker Allergies Allergies Allergy/AdvReac Type Severity Reaction Status Date / Time Penicillins Allergy Severe Dizziness Verified 04/14/22 23:47 & SHORTNESS OF BREATH Home Meds Home Medications Medication Instructions Recorded Confirmed furosemide 20 mg tablet 20 mg PO .DAILY THURSDAY/Thursday03/20/21 04/14/22 metoprolol succinate 25 mg 25 mg PO BID 04/14/22 04/14/22 tablet,extended release 24 hr Previous Rx's Medication Instructions Recorded aspirin 81 mg tablet,delayed 81 mg PO DAILY #30 tabs 12/12/20 release sacubitril 49 mg-valsartan 51 mg 1 tab PO BID #60 tabs 12/12/20 tablet (Entresto) silodosin 8 mg capsule (Rapaflo) 8 mg PO HS #90 caps 09/17/21 finasteride 5 mg tablet 5 mg PO HS #90 tabs 02/17/22 simvastatin 40 mg tablet 40 mg PO HS #90 tabs 02/17/22 Results & Data (ED) Vital Signs Vital Signs - 24 hr 04/14/22 13:41 Temperature 36.8 C Temperature Source Temporal Artery Scan Pulse Rate 78 Respiratory Rate 18 Respiratory Effort / Characteristics Non-Labored Spontaneous Respiratory Depth Normal Respiratory Pattern Regular Blood Pressure 122/73 Blood Pressure Mean 89 Blood Pressure Position Sitting Pulse Oximetry 95 Oxygen Delivery Method Room Air Sepsis Recent Fever Within 48 Hours No Sepsis New/Unexplained Change in Mental Status N/A Sepsis Action Taken by Nursing No Action Required Laboratory Data Result diagrams: 04/14/22 15:40 04/14/22 15:40 Lab Results 04/14/22 04/14/22 04/14/22 Range/Units 15:40 15:40 15:40 WBC 13.78 H (4.8-10.8) K/ul RBC 4.91 (4.63-6.08) M/uL Hgb 14.9 (14.0-18.0) g/dl Hct 43.9 (40.1-51.0) % MCV 89.4 (80.0-100.0) fL MCH 30.3 (25.0-34.0) pg MCHC 33.9 (32.0-36.0) g/dL RDW Std Deviation 46.1 (36.4-46.3) fL RDW Coeff of Inderjit 14.1 (11.5-14.5) % Plt Count 411 H (130-400) K/uL MPV 9.6 (9.4-12.4) fL Immature Gran % (Auto) 0.7 % Neut % (Auto) 77.2 % Lymph % (Auto) 9.6 % [place] % (Auto) 11.1 % Eos % (Auto) 1.0 % Baso % (Auto) 0.4 % Neut # (Auto) 10.64 H (1.4-6.5) K/uL Lymph # (Auto) 1.32 (1.2-3.4) K/uL [place] # (Auto) 1.53 H (0.24-0.82) K/uL Eos # (Auto) 0.14 (0-0.50) K/uL Baso # (Auto) 0.06 (0-0.2) K/uL Immature Gran # (Auto) 0.09 H (0.00-0.02) K/uL Sodium 138 (136-145) mmol/L Potassium 3.1 L (3.5-5.1) mmol/L Chloride 102 (98-107) mmol/L Carbon Dioxide 25 (21-32) mmol/L Anion Gap 11 (3-11) BUN 60 H (6-23) mg/dl Creatinine 1.84 H (0.6-1.4) mg/dl Est Cr Clr Drug Dosing 32.5 ml/min Est GFR ( Amer) 39.0 ml/min Est GFR (Non-Af Amer) 33.6 ml/min BUN/Creatinine Ratio 32.6 H (10-20) Glucose 159 H (70-99(Fasting)) mg/dl Calcium 9.5 (8.5-10.1) mg/dl Total Bilirubin 1.2 H (0.2-1.0) mg/dl AST 48 H (13-39) U/L ALT 37 (7-52) U/L Alkaline Phosphatase 102 (34-104) U/L Troponin I High Sens 52.9 H* (0-20) pg/ml Total Protein 8.1 (6.0-8.3) gm/dl Albumin 3.8 (3.4-5.0) gm/dl Globulin 4.3 H (2.5-4.0) gm/dl Albumin/Globulin Ratio 0.9 (0.9-2) TSH 0.570 (0.300-4.500) uIu/ml Imaging Data Radiologist's Impression: Hip/Pelvis X-Ray 04/14/22 18:22 SINGLE VIEW PELVIS; 2 VIEWS RIGHT HIP CLINICAL HISTORY: Right hip pain. FINDINGS: An AP view of the pelvis with AP and frog leg views of the right hip are obtained. No prior studies are available for comparison at the time of dictation. The skeletal structures are osteopenic. There is no radiographic evidence of acute fracture involving the hips or bony pelvis. Mild arthritic change and joint space narrowing is seen in the hips. Degenerative sclerosis is noted in the sacroiliac joints. The overlying soft tissues are within normal limits. There is atherosclerotic calcification of the femoral arteries. Lumbosacral spondylosis is partially visualized. Indeterminant calcifications project over the sacrum. IMPRESSION: No acute bony abnormality is identified. Electronically signed by: Horacio Szymanski M.D. 04/14/2022 8:[address] 04/14/22 18:28 CT SCAN OF THE BRAIN WITHOUT IV CONTRAST CLINICAL HISTORY: Fall. COMPARISON STUDY: No priors. TECHNIQUE: Unenhanced axial CT scan of the brain is performed from the vertex to the skull base. A dose lowering technique was utilized adhering to the principles of ALARA. CT DOSE: 614.27 mGy.cm FINDINGS: Brain parenchyma: There is age-related involutional change noting [id number] subcortical and periventricular microangiopathic disease. There is no hemorrhage, mass effect, or evidence of acute territorial ischemia by CT criteria. Beckman-white matter differentiation is preserved. No extra-axial fluid collection is seen. Ventricles, sulci, cisterns: Prominent secondary to involutional change. Intracranial vasculature: There is atherosclerotic calcification of the cavernous carotid and vertebral arteries. Calvarium: The skeletal structures are osteopenic. No depressed calvarial fracture is identified. Sinuses and mastoids: Trace mucosal thickening is noted in the right maxillary antrum. The remaining paranasal sinuses are clear. The mastoid air cells are well pneumatized. Orbits: The bony orbits are grossly intact. There are bilateral ocular lens implants. IMPRESSION: There is no hemorrhage, mass effect, or evidence of acute territorial ischemia by CT criteria. ACT 112: Negative or not required by law. Electronically signed by: Horacio Szymanski M.D. 04/14/2022 7:13 PM Discharge Plan Visit Data Chief Complaint: Fall Stated Complaint: GO TO TRIAGE ED Provider: Jeremiah Gaona Discharge Problem: RUFINO (acute kidney injury), Elevated troponin, Weakness, Fall, Leukocytosis, Hypokalemia
--- NOTE | 2022-04-14 19:01 | History & Physical Report ---
Date of Service April 14, 2022 Assessment & Plan (1) Weakness: Plan: -Patient's family has been working on getting him placed at [facility], he has been accepted but needed to be medically cleared prior to going back, which is why he was sent to the ED via ambulance -Was unable to get in touch with his Daughter Khloe despite multiple attempts, she is reportedly in town from [place] due to the gravity of the situation -Patient has reportedly been falling multiple times over the past few months, has reportedly been accepted to [facility] once medically cleared -CT of the head back and negative for acute findings -Will obtain xrays of the right shoulder and hip to rule out acute fractures -Will obtain CK level as it is unclear how long the patient was down on his last fall -PT/OT consults placed -Fall precautions ordered -AM CBC, CMP, and Mag (2) RUFINO (acute kidney injury): Plan: -Cr today noted to be 1.9, baseline appears to be 0.9-1.8 -Unsure of the exact etiology of the patient's RUFINO at this time but likely at least partly due to poor oral intake with possible continued use of lasix and entresto -Will obtain necessary studies to obtain a FEUrea -Patient was given 1L NSS in the waiting room, will continue with light IV hydration overnight as he does not appear volume overloaded on exam -Will obtain renal US to rule out obstruction but patient states has been urinating consistently -UA with reflex if needed ordered by the ED, will need to FU when obtained -Hold Entresto and lasix for now -Monitor intake/output QID for now -AM CBC, CMP, and Mag (3) Elevated troponin: Plan: -Noted to be 50 on initial draw on arrival to the ED -Patient is without chest pain or other symptoms concerning for ACS -Patient's ECG today without ST segment changes but does show inverted T-waves in the later leads, likely due to his hypokalemia -Will repeat another STAT on admission then trend overnight -Monitor on tele (4) Hypokalemia: Plan: -Noted to be 3.1 on arrival to the ED, will add on mag level now -Unsure of the exact etiology at this time, but likely a combination of poor oral intake and continued diuretic use -Was given (5) HTN (hypertension): Plan: -Hemodynamically stable -Continue metoprolol but hold lasix and entresto for now (6) Systolic heart failure: Plan: -Examines Euvolemic to dehydrated on exam -Will have to hold entresto and lasix for now with his RUFINO -Will only give an additional bag of IV fluids then will continue with clear liquids overnight to avoid volume overload with known HFrEF (7) Severe obstructive sleep apnea: Plan: -Patient reportedly has not been compliant with his HS CPAP and has previously been ordered 2L NC but is also non-compliant per records -Will order both for now (8) Coronary artery calcification: Plan: -Conitnue aspirin (9) Hyperlipidemia: Plan: -Would restart statin if CK levels are WNL, will hold for now (10) BPH (benign prostatic hyperplasia): Plan: -Continue flomax Plan The patient was discussed with Dr. Bolton at the time of the admission History of Present Illness Chief Complaint: Needed medical clearance for placement Primary Care Provider: Peter Sykes MD Festus is an 82 year old male with a PMH significant for HFrEF (LVEF of 30- 35%, mildly dilated left ventricle, mild-mod mitral regurgitation, mild tricuspid regurgitation as of 12/07/20), Dementia, HTN, PJ with nocturnal hypoxemia, CAD, hyperlipidemia, BPH, who presented to the [facility] ED on 04/14/22 initially for medical clearance prior to going back to [facility]. In the ED the patient was found to be afebrile, hemodynamically stable, and stable on RA. Labs were remarkable for a leukocytosis of 13 with left shift of 10.64, platelet count of 411, Cr of 1.84 (baseline appears to be 0.9-1.0), potassium of 3.1, glucose of 159, total bili of 1.2 with AST of 48 otherwise stable liver function, initial high sensitivity troponin of 52, TSH of 0.570. Prior to admission, xrays of the right hip were ordered and a CT of the head was ordered for a complete workup but neither had been obtained prior to admission. Prior to admission the patient was given 1L NSS bolus and was also given 40 meq of PO KCL. Unfortunately, due to very high hospital and ED census the patient had to be evaluated in the ED waiting room. He was found to be sitting comfortably in a wheelchair in no acute distress. Per the ED intake report, the patient was broug ht in earlier today via EMS to be evaluated for placement to [facility] assisted living [facility] due to multiple falls and inability to care for himself due to a history of worsening dementia. Reportedly the patient's Daughter (Khloe Frost [phone]) is up from [place] due to the patient's issues and has been working with [facility], who has reportedly already accepted the patient to their facility, but he needed to be medically cleared prior to being officially accepted. I attempted to call Khloe multiple times but unfortunately she never picked up. I attempted to obtain a history from the patient but am unsure how reliable of a historian he is as he was forgetful multiple times during my exam and needed to be redirected. He states that he came to the ED as he has been falling frequently with his last fall approximately 2-3 days ago. He states that his last fall occurred when he fell out of bed, landing on his right side. He does not think that he hit his head or lost consciousness and denies being on blood thinners. He states that he has had some pain in his right shoulder and hip since the fall but otherwise no other complaints. He denies any chest pain, SOB, abdominal pain, nausea, vomiting, diarrhea, dysuria, hematuria, and melena. The patient does not know his medications so I was unable to confirm his med rec at the time of the admission. I spoke to him regarding code status, he wishes to be a Full Code. There is a previous DNR/DNI documented on 12/06/20 but until we can confirm with family we will keep him a Full Code for now. Please refer to Dr. Bolton's attestation for any changes to the treatment Allergies Allergy/AdvReac Type Severity Reaction Status Date / Time Penicillins Allergy Severe Dizziness Verified 04/14/22 23:47 & SHORTNESS OF BREATH Home Medications Medication Instructions Recorded Confirmed Type aspirin 81 mg tablet,delayed 81 mg PO DAILY #30 tabs 12/12/20 04/14/22 Rx release sacubitril 49 mg-valsartan 51 mg 1 tab PO BID #60 tabs 12/12/20 04/14/22 Rx tablet (Entresto) furosemide 20 mg tablet 20 mg PO .DAILY THURSDAY/Thursday03/20/21 04/14/22 History silodosin 8 mg capsule (Rapaflo) 8 mg PO HS #90 caps 09/17/21 04/14/22 Rx finasteride 5 mg tablet 5 mg PO HS #90 tabs 02/17/22 04/14/22 Rx simvastatin 40 mg tablet 40 mg PO HS #90 tabs 02/17/22 04/14/22 Rx metoprolol succinate 25 mg 25 mg PO BID 04/14/22 04/14/22 History tablet,extended release 24 hr Past Med/Surg History Medical History (Updated 04/15/22 @ 00:01 by Jeremiah Gaona DO) BPH (benign prostatic hyperplasia) Hearing difficulty Hyperlipidemia Kidney stones Lumbar spondylosis MVP (mitral valve prolapse) "MILD" -- follows w/ Dr. Noyola Osteoarthritis PVC (premature ventricular contraction) Sleep apnea no device as of yet -- appt on 12/07 to determine if device needed or not Stenosis, cervical spine Surgical History History of cardiac cath 4 YEARS AGO/NO STENTS History of cataract surgery left cataract 09/29/2018. 2mg versed, 50mcg fentanyl. no issues. 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 Hx of transurethral resection of prostate Family History Brother Prostate cancer Father Kidney stones Other No family history of adverse response to anesthesia Social History Smoking Status: Never smoker Second Hand Exposure: No; Hx Alcohol Use: Yes (6 pack lasts two weeks) Alcohol type: beer Hx Substance Use: No Preferred Language: Icelandic Communication Ability: Effective Visual Impairment: Diminished Hearing Ability: Use of Hearing Aid Senior Marketing Data Analyst Required: No Beliefs That Will Affect Care: None marital status: Current Living Situation: Spouse current occupational status: retired Feels Safe at Home: Yes Childhood Exposure to Second-Hand Smoke: No caffeine: Yes (2 CUPS OF COFFEE DAILY) Dental Care, Regularly: Yes Physical Activity Frequency: Does not Exercise Physical Activity Frequency Comment: DUE TO PHYSICAL CONDITION Seatbelt Use: always Sunscreen Use: No Assistive Devices: Walker Review of Systems Review of Systems: Denies current fever, chills, headache, changes in vision, hearing, taste, and smell, chest pain, SOB, cough, abdominal pain, nausea, vomiting, diarrhea, hematemesis, melena, dysuria, hematuria All systems have been reviewed and are otherwise negative. Physical Exam Physical Exam: Physical Exam: Exam was limited due to patient being in the waiting room at the time of the exam General: In no acute distress, stated age, malnourished, poor hygiene, non- toxic appearing HEENT: Normocephalic, atraumatic, no scleral icterus, pupils around round, symmetrical, and reactive to light, dry mucus membranes, trachea midline, no thyromegaly Chest/Pulm: No respiratory distress, symmetrical chest expansion, clear breath sounds throughout Cardiac: RRR, no murmurs noted Abdomen: Negative for ascites and bruising, normoactive bowel sounds, soft, non-tender to palpation throughout Musculoskeletal: Patient with intact ROM of the upper extremities, no step-offs or crepitus noted on palpation of the right shoulder, patient is tender to palpation over the right hip, patient with intact hip flexion of the LE's while testing movement in his wheelchair Extremities: Radial, dorsalis pedis, and posterior tibial pulses are intact and symmetrical, +1 edema noted in the LE's Skin: Warm, dry, no rashes , lesions, or scars noted Neuro: Alert and oriented to person and place, no focal defects, CN II-XII tested and intact, no tremors noted Psych: No acute distress, calm and cooperative during the exam Results & Data Results & Data ([facility]) Vital Signs (Past 12 Hours) Vital Signs Temp Pulse Resp BP Pulse Ox O2 Del Method 04/14/22 13:41 36.8 C 78 18 122/73 95 Room Air Laboratory Results Abnormal lab results 04/14/22 04/14/22 Range/Units 15:40 15:40 WBC 13.78 H (4.8-10.8) K/ul Plt Count 411 H (130-400) K/uL Neut # (Auto) 10.64 H (1.4-6.5) K/uL Scott # (Auto) 1.53 H (0.24-0.82) K/uL Immature Gran # (Auto) 0.09 H (0.00-0.02) K/uL Potassium 3.1 L (3.5-5.1) mmol/L BUN 60 H (6-23) mg/dl Creatinine 1.84 H (0.6-1.4) mg/dl BUN/Creatinine Ratio 32.6 H (10-20) Glucose 159 H (70-99(Fasting)) mg/dl Total Bilirubin 1.2 H (0.2-1.0) mg/dl AST 48 H (13-39) U/L Troponin I High Sens 52.9 H* (0-20) pg/ml Globulin 4.3 H (2.5-4.0) gm/dl Diagnostic Findings Head CT 04/14/22 18:28 CT SCAN OF THE BRAIN WITHOUT IV CONTRAST CLINICAL HISTORY: Fall. COMPARISON STUDY: No priors. TECHNIQUE: Unenhanced axial CT scan of the brain is performed from the vertex to the skull base. A dose lowering technique was utilized adhering to the principles of ALARA. CT DOSE: 614.27 mGy.cm FINDINGS: Brain parenchyma: There is age-related involutional change noting nosc-so-ovkuigid subcortical and periventricular microangiopathic disease. There is no hemorrhage, mass effect, or evidence of acute territorial ischemia by CT criteria. Beckman-white matter differentiation is preserved. No extra-axial fluid collection is seen. Ventricles, sulci, cisterns: Prominent secondary to involutional change. Intracranial vasculature: There is atherosclerotic calcification of the cavernous carotid and vertebral arteries. Calvarium: The skeletal structures are osteopenic. No depressed calvarial fracture is identified. Sinuses and mastoids: Trace mucosal thickening is noted in the right maxillary antrum. The remaining paranasal sinuses are clear. The mastoid air cells are well pneumatized. Orbits: The bony orbits are grossly intact. There are bilateral ocular lens implants. IMPRESSION: There is no hemorrhage, mass effect, or evidence of acute territorial ischemia by CT criteria. ACT 112: Negative or not required by law. Electronically signed by: Horacio Szymanski M.D. 04/14/2022 7:13 PM ECG Additional Comments: Poor data quality, interpretation may be adversely affected Sinus tachycardia with Premature supraventricular complexes Left ventricular hypertrophy with repolarization abnormality Abnormal ECG When compared with ECG of 06-DEC-2020 23:43, Premature supraventricular complexes are now Present Vent. rate has increased BY 42 BPM Nonspecific T wave abnormality no longer evident in Anterior leads Inverted T waves have replaced nonspecific T wave abnormality in Lateral leads Code Status & VTE Plan Code Status Full Code for now, would re-evaluate discussion when family is available VTE Prophylaxis Plan VTE Prophylaxis will be ordered: Yes Supervising Physician Co-Signing Physician Notes Patient seen and examined, chart reviewed, case discussed with Akbar Aragon PA-C and I agree with the assessment and plan as above except as otherwise noted Labs and images reviewed Festus is an 82-year-old male with a past medical history of heart failure with reduced ejection fraction 30-35%, dementia, hypertension, PJ, CAD, hyperlipidemia, BPH who was brought in by EMS from [facility] due to multiple falls, worsening dementia, and weakness. Patient is a limited historian, answers questions relatively appropriately but is not oriented to place/year and requires redirection with poor recall of recent and past events. At time of assessment denies chest pain/chest pressure/shortness of breath/abdominal pain/nausea/vomiting/diarrhea/syncope/presyncope. Does endorse right hip pain. Case discussed with family by PA as previously noted. Patient is excepted at [facility] but I will not receive macular facility until he has had a medical evaluation and clearance. At time of presentation patient was with a mild leukocytosis, normal hemoglobin, slightly low potassium which is being repleted, normal sodium, and RUFINO with baseline creatinine less than approximately 1.2, on admission 1.84, pending CK, and pending UA. No acute findings of CT of the head, CXR is without acute findings, no evidence of shoulder fracture or hip fracture on x-ray.? UTI, with RUFINO and elevated troponin without chest pain. Trend troponin, low suspicion for ACS at this time. Follow-up UA and treat empiric with Rocephin if positive, cautious fluids given history of systolic heart failure. Agree with management above. PG Care Time/CCT Total # of Minutes Spent Total Time Spent with Patient: Total time spent is greater than 50% in coordination of care (as documented) at patient's floor/unit and/or counseling patient: [place] [address] Initial Inpt Care Lvl 3 Patient Type Established Medical Decision Making High Complexity Diagnoses Weakness R53.1 RUFINO (acute kidney injury) N17.9 Elevated troponin R77.8 Hypokalemia E87.6 HTN (hypertension) I10 Systolic heart failure I50.20 Severe obstructive sleep apnea G47.33 Coronary artery calcification I25.10; I25.84 Hyperlipidemia E78.5 BPH (benign prostatic hyperplasia) N40.0
--- NOTE | 2022-04-14 19:15 | CT Scan Report ---
CT SCAN OF THE BRAIN WITHOUT IV CONTRAST CLINICAL HISTORY: Fall. COMPARISON STUDY: No priors. TECHNIQUE: Unenhanced axial CT scan of the brain is performed from the vertex to the skull base. A do se lowering technique was utilized adhering to the principles of ALARA. CT DOSE: 614.27 mGy.cm FINDINGS: Brain parenchyma: There is age-related involutional change noting [id number]-as-[id number] subcortical and pe riventricular microangiopathic disease. There is no hemorrhage, mass effect, or evidence of acute ter ritorial ischemia by CT criteria. Beckman-white matter differentiation is preserved. No extra-axial flui d collection is seen. Ventricles, sulci, cisterns: Prominent secondary to involutional change. Intracranial vasculature: There is atherosclerotic calcification of the cavernous carotid and vertebr al arteries. Calvarium: The skeletal structures are osteopenic. No depressed calvarial fracture is identified. Sinuses and mastoids: Trace mucosal thickening is noted in the right maxillary antrum. The remaining paranasal sinuses are clear. The mastoid air cells are well pneumatized. Orbits: The bony orbits are grossly intact. There are bilateral ocular lens implants. IMPRESSION: There is no hemorrhage, mass effect, or evidence of acute territorial ischemia by CT umesh ramirez. ACT 112: Negative or not required by law. Electronically signed by: Horacio Szymanski M.D. 04/14/2022 7:13 PM
--- NOTE | 2022-04-14 20:11 | XRay Report ---
SINGLE VIEW PELVIS; 2 VIEWS RIGHT HIP CLINICAL HISTORY: Right hip pain. FINDINGS: An AP view of the pelvis with AP and frog leg views of the right hip are obtained. No prior studies are available for comparison at the time of dictation. The skeletal structures are osteopeni c. There is no radiographic evidence of acute fracture involving the hips or bony pelvis. Mild arthri tic change and joint space narrowing is seen in the hips. Degenerative sclerosis is noted in the sacr oiliac joints. The overlying soft tissues are within normal limits. There is atherosclerotic calcific ation of the femoral arteries. Lumbosacral spondylosis is partially visualized. Indeterminant calcifi cations project over the sacrum. IMPRESSION: No acute bony abnormality is identified. Electronically signed by: Horacio Szymanski M.D. 04/14/2022 8:09 PM
[2022-04-14] MEDS ORDERED: LACTATED RINGER'S 1,000 ML IV SCH (20:15)
--- NOTE | 2022-04-14 20:19 | XRay Report ---
SINGLE VIEW CHEST CLINICAL HISTORY: Unspecified infection FINDINGS: An AP, portable, supine chest radiograph is compared to study dated 12/06/2020. The heart is enlarged. The pulmonary vasculature is noncontrast. Chronic interstitial thickening similar to previ ous. There is chronic elevation of right hemidiaphragm with bibasilar scarring/atelectasis. No airspa ce consolidation or large pleural effusion is identified. No pneumothorax is seen. The skeletal struc tures are osteopenic. The bony thorax is grossly intact. Arthritic change is noted in the shoulders. Superior subluxation of both humeral heads suggests chronic bilateral rotator cuff injury. IMPRESSION: Cardiomegaly with no acute cardiopulmonary abnormality identified. ACT 112: Negative or not required by law. Electronically signed by: Horacio Szymanski M.D. 04/14/2022 8:18 PM
--- NOTE | 2022-04-14 20:27 | XRay Report ---
RIGHT SHOULDER 3 VIEWS CLINICAL HISTORY: Fall with right shoulder pain. FINDINGS: 3 views of the right shoulder are obtained. No prior studies are available for comparison a t the time of dictation. The skeletal structures are osteopenic. There is no radiographic evidence of fracture or dislocation. Degenerative change is noted at the glenohumeral and acromioclavicular join ts. Superior subluxation of the humeral head suggests chronic rotator cuff injury. The overlying soft tissues are normal as visualized. The imaged right lung parenchyma appears clear. There is atheroscl erotic calcification of the right carotid bulb. IMPRESSION: No acute bony abnormality is identified. Electronically signed by: Horacio Szymanski M.D. 04/14/2022 8:26 PM
[2022-04-15 00:30] LABS: Troponin I High Sensitivity 53.5 pg/ml (0-20)
[2022-04-15 00:33] LABS: Magnesium 2.3 mg/dl (1.7-2.4)
[2022-04-15] MEDS: METOPROLOL SUCC 50MG EXT REL TAB PO SCH ×3 (03:39→20:55)
[2022-04-15] MEDS: FINASTERIDE 5 MG TAB PO SCH ×2 (03:39→20:55)
[2022-04-15] MEDS: HEPARIN SOD 5,000 UNIT/0.5 ML VIAL SQ SCH ×3 (03:40→16:16)
[2022-04-15 06:31] LABS: Appearance Urine Turbid (Clear); Bacteria Urine Automated 2+ (Negative); Bilirubin Urine Negative (Negative); Blood Urine 2+ (Negative); Cast Urine Automated 0 /lpf (0-5); Color Urine Yellow; Glucose Urine UA Negative (Negative); Ketones Urine Negative (Negative); Leukocyte Esterase Urine 3+ (Negative); Nitrite Urine Negative (Negative); Protein Urine 2+ (Negative); RBC Urine Automated 0-4 /hpf (0-4); Specific Gravity Urine 1.014 (1.000-1.030); Urobilinogen Urine Negative (Negative); WBC Urine Automated >30 /hpf (0-5)
[2022-04-15 06:49] LABS: Creatinine Urine Random 75.8 mg/dl
--- NOTE | 2022-04-15 07:13 | Ultrasound Report ---
RENAL ULTRASOUND CLINICAL HISTORY: RUFINO, please monitor for obstruction/hydronephrosis COMPARISON STUDY: KUB October 27, 2019. TECHNIQUE: Sonography of the kidneys and the urinary bladder was performed. FINDINGS: The right kidney measures 11.7 x 5.9 x 6 cm and the left measures 12.7 x 5.6 x 6.3 cm. Ther e is no right hydronephrosis. Mild to moderate left hydroureteronephrosis is noted. No ureteral calcu campos is identified although these may be occult by sonography. Numerous bilateral renal calculi are no lashanda. The largest is a 1.2 cm left renal calculus. The bladder is distended and contains a large amoun t of debris with layering material. There is a suspected bladder calculus. The prostate is prominent and indents the base of the bladder. IMPRESSION: 1. Mild to moderate left hydroureteronephrosis. No ureteral calculi identified although these may be occult by sonography. 2. Numerous bilateral renal calculi. 3. Distended bladder which contains extensive layering material. This is nonspecific but may reflect clot and could be correlated with urinalysis. 4. Prominent prostate which indents the base of the bladder. 5. Suspected bladder calculus. ACT 112: Negative or not required by law. Electronically signed by: Doron Kim M.D. 04/15/2022 7:12 AM
[2022-04-15 07:19] LABS: Hematocrit (blood only) 36.5 % (40.1-51.0); Hemoglobin 12.5 g/dl (14.0-18.0); Mean Corpuscular Hemoglobin 30.3 pg (25.0-34.0); Mean Corpuscular Hgb Conc 34.2 g/dL (32.0-36.0); Mean Corpuscular Volume 88.4 fL (80.0-100.0); Mean Platelet Volume 9.8 fL (9.4-12.4); Platelet Count 365 K/uL (130-400); RDW Coefficient of Variation 14.1 % (11.5-14.5); RDW Standard Deviation 45.8 fL (36.4-46.3); Red Blood Count 4.13 M/uL (4.63-6.08); White Blood Count 11.18 K/ul (4.8-10.8)
[2022-04-15 07:49] LABS: Albumin Globulin Ratio 0.9 (0.9-2); Albumin Level 3.1 gm/dl (3.4-5.0); Bilirubin,Total 1.1 mg/dl (0.2-1.0); Calcium 8.3 mg/dl (8.5-10.1); Est GFR (African American) 51.5 ml/min; Est GFR (Non-African American) 44.5 ml/min; Globulin 3.5 gm/dl (2.5-4.0); Magnesium 2.1 mg/dl (1.7-2.4); Potassium 3.4 mmol/L (3.5-5.1); Total Protein 6.6 gm/dl (6.0-8.3)
[2022-04-15 07:54] LABS: Troponin I High Sensitivity 49.1 pg/ml (0-20)
[2022-04-15] MEDS: ASPIRIN 81 MG ECTAB PO SCH (08:15)
[2022-04-15] MEDS ORDERED: cefTRIAXone SODIUM 2,000 MG in DEXTROSE 5% 50 ML IV SCH (10:00)
[2022-04-15] MEDS: NITROFURANTOIN MONOHYDRATE 100 MG CAP PO SCH ×2 (10:28→20:55)
[2022-04-15] MEDS ORDERED: cefTRIAXone SODIUM 2000MG/70ML D5W IV SCH (10:30)
[2022-04-15] MEDS ORDERED: POTASSIUM CHLORIDE CRTAB 20 MEQ TABCR PO STA (11:13)
--- NOTE | 2022-04-15 12:03 | Progress Note ---
Date of Service April 15, 2022 Assessment & Plan (1) Weakness: Plan: * Appears to be chronic at this point with increasing frequency of falls. Family is in the process of working with [facility] for placement. Case management did reach out to [facility] today. Please see separate note. It is with hopes that the patient can be accepted near the end of the week. * Certainly, we will attempt to correct any underlying conditions which may be worsening his baseline weakness. * Question of UTI versus cystitis versus bladder calculi on imaging. * Currently on Rocephin. Could likely transition this to p.o. cefdinir in the outpatient. * Will work with case management to perform appropriate evaluation so patient has not delayed acceptance to her where he likely would benefit most. (2) RUFINO (acute kidney injury): Plan: * Of questionable significance at this point. We will repeat labs as they have continue to trend down. (3) Cystitis: Plan: * As noted on CT. We will continue with Rocephin for now with goal to transition to p.o. medications for home (4) Elevated troponin: Plan: * Of questionable significance at this point. They have cleared and are improving at this time (5) Fall: Plan: Please see above (6) Hypokalemia: Plan: Replace appropriate (7) HTN (hypertension): Plan: Continue home medications as tolerated. (8) Nocturnal hypoxemia: Plan: Encourage CPAP utilization (9) Severe obstructive sleep apnea: Plan: Continue to encourage CPAP use. Admission and Anticipated Discharge Date Admission Date: April 14, 2022 Supervising Physician Co-Signing Physician Notes Attending Attestation - Chart reviewed, care plan d/w MIMI Wooten. I agree w/ the capone components of his documentation. Franco Aranda MD Subjective Patient was seen and evaluated at bedside. He reports feeling well this time and offers no complaints. He is awake and alert. He knows that he is at the mouth in the emergency department. He does appear somewhat confused at baseline, but per documentation, this does appear somewhat improved. Otherwise, he offers no complaints at this time Review of Systems Review of Systems: A complete 6 point review of systems was reviewed with the patient with pertinent positives and negatives as per history of present illness. All else were negative. Physical Exam Physical Exam: VITAL SIGNS - Vital signs and nursing notes were reviewed. GENERAL - 82-year-old male appearing his stated age who is in no acute distress. Communicates well with provider and answers questions appropriately. SKIN - Without rashes. HEAD - NC/AT. EYES - PERRL with EOMI bilaterally. Sclera anicteric. NECK - Neck with FROM. LUNGS - Chest wall symmetric without accessory muscle use, intercostals retractions, or central cyanosis. Normal vesicular breath sounds CTA B/L. No wheezes, rales, or rhonchi appreciated. CARDIAC - RRR with S1/S2. No murmur, rubs, or gallops appreciated. ABDOMEN - Abdominal contour flat without pulsations or visible masses. BS normoactive all four quadrants. No tenderness, palpable masses, hepatosplenomegaly, or ascites noted. EXTREMITIES - No clubbing or peripheral cyanosis. No pretibial edema present. +3/5 radial and dorsalis pedis pulses palpated throughout. +5/5 strength noted in UE/LE bilaterally. NEUROLOGIC - Cranial nerves II through XII grossly intact. S PSYCH -alert and oriented to location. Slow to answer some questions. Results & Data ([facility]) Vital Signs (Past 12 Hours) Vital Signs Pulse Pulse Resp BP BP Pulse Ox O2 Del Method 04/15/22 11:29 65 20 123/82 96 Room Air 04/15/22 07:00 58 L 16 116/48 L 96 Room Air 04/15/22 06:01 86 16 115/72 93 Room Air 04/15/22 03:36 92 H 20 114/59 L 04/15/22 02:00 69 22 116/57 L 94 04/15/22 03:35 70 20 114/59 L 95 Room Air PG Care Time/CCT Total # of Minutes Spent Total Time Spent with Patient: Total time spent is greater than 50% in coordination of care (as documented) at patient's floor/unit and/or counseling patient: Coding Level of Care Code 56760 Subseq Hosp Care Lvl 3 Diagnoses Weakness R53.1 RUFINO (acute kidney injury) N17.9 Cystitis N30.90 Elevated troponin R77.8 Fall W19.XXXA Hypokalemia E87.6 HTN (hypertension) I10 Nocturnal hypoxemia G47.34 Severe obstructive sleep apnea G47.33 Time Spent (min) 35
[2022-04-15] MEDS ORDERED: SIMETHICONE 80 MG CHEW PO PRN (12:49)
--- NOTE | 2022-04-15 12:49 | Electrocardiogram Report ---
Test Reason : Blood Pressure : / mmHG Vent. Rate : 110 BPM Atrial Rate : 110 BPM P-R Int : 168 ms QRS Dur : 096 ms QT Int : 346 ms P-R-T Axes : 082 -22 086 degrees QTc Int : 468 ms Poor data quality, interpretation may be adversely affected Sinus tachycardia with Premature supraventricular complexes Left ventricular hypertrophy with repolarization abnormality Abnormal ECG When compared with ECG of 06-DEC-2020 23:43, Premature supraventricular complexes are now Present Vent. rate has increased BY 42 BPM Nonspecific T wave abnormality no longer evident in Anterior leads Inverted T waves have replaced nonspecific T wave abnormality in Lateral leads Confirmed by Clovis Cervantes ([id number]) on 04/15/2022 12:48:57 PM Referred By: Confirmed By:Celio Cervantes
[2022-04-16] MEDS: HEPARIN SOD 5,000 UNIT/0.5 ML VIAL SQ SCH ×3 (01:16→16:43)
[2022-04-16 07:22] LABS: Hematocrit (blood only) 36.5 % (40.1-51.0); Hemoglobin 12.2 g/dl (14.0-18.0); Mean Corpuscular Hgb Conc 33.4 g/dL (32.0-36.0); Mean Corpuscular Volume 89.9 fL (80.0-100.0); Mean Platelet Volume 9.8 fL (9.4-12.4); Platelet Count 392 K/uL (130-400); RDW Standard Deviation 46.1 fL (36.4-46.3); Red Blood Count 4.06 M/uL (4.63-6.08); White Blood Count 11.35 K/ul (4.8-10.8)
[2022-04-16 08:02] LABS: Est GFR (African American) 57.2 ml/min; Est GFR (Non-African American) 49.3 ml/min; Potassium 3.6 mmol/L (3.5-5.1)
[2022-04-16 08:03] LABS: Albumin Globulin Ratio 0.9 (0.9-2); BUN Creatinine Ratio 30.6 (10-20); Bilirubin,Total 1.1 mg/dl (0.2-1.0); Calcium 8.2 mg/dl (8.5-10.1); Creatinine Clr Calc Pharmacy 44.6 ml/min; Globulin 3.4 gm/dl (2.5-4.0); Total Protein 6.4 gm/dl (6.0-8.3)
--- NOTE | 2022-04-16 08:11 | Hospitalist Progress Note ---
Date of Service April 16, 2022 Assessment & Plan (1) Weakness: Plan: * Appears to be chronic at this point with increasing frequency of falls. Family is in the process of working with [facility] for placement. Case management did reach out to [facility] today. Please see separate note. It is with hopes that the patient can be accepted near the end of the week. * Question of UTI versus cystitis versus bladder calculi on imaging. * Patient had been transitioned to p.o. Macrobid which appears to be pansensitive. * Patient is pending acceptance to [facility] for rehab. (2) RUFINO (acute kidney injury): Plan: * Resolved (3) Cystitis: Plan: * As noted on CT. * Transition to p.o. antibiotics. (4) Elevated troponin: Plan: * Of questionable significance at this point. They have cleared and are improving at this time (5) Fall: Plan: Please see above (6) Hypokalemia: Plan: Replace appropriate (7) HTN (hypertension): Plan: Continue home medications as tolerated. (8) Nocturnal hypoxemia: Plan: Encourage CPAP utilization (9) Severe obstructive sleep apnea: Plan: Continue to encourage CPAP use. Admission and Anticipated Discharge Date Admission Date: April 14, 2022 Supervising Physician Co-Signing Physician Notes Attending Attestation - Chart reviewed, care plan d/w MIMI Wooten. I agree w/ the capone components of his documentation. Franco Aranda MD Subjective Patient was seen and evaluated bedside today. He reports that he is feeling somewhat in the dumps secondary to feeling generally weak. He is encouraged that he will be placed for rehab soon. He was able to ambulate with some assistance earlier today. He reports a poor diet, but no other complaints other than some chronic low back discomfort which she reports is not new. Review of Systems Review of Systems: A complete 6 point review of systems was reviewed with the patient with pertinent positives and negatives as per history of present illness. All else were negative. Physical Exam Physical Exam: VITAL SIGNS - Vital signs and nursing notes were reviewed. GENERAL - 82-year-old male appearing his stated age who is in no acute distress. Communicates well with provider and answers questions appropriately. SKIN - Without rashes. HEAD - NC/AT. EYES - PERRL with EOMI bilaterally. Sclera anicteric. NECK - Neck with FROM. LUNGS - Chest wall symmetric without accessory muscle use, intercostals retractions, or central cyanosis. Normal vesicular breath sounds CTA B/L. No wheezes, rales, or rhonchi appreciated. CARDIAC - RRR with S1/S2. No murmur, rubs, or gallops appreciated. ABDOMEN - Abdominal contour flat without pulsations or visible masses. BS normoactive all four quadrants. No tenderness, palpable masses, hepatosplenomegaly, or ascites noted. EXTREMITIES - No clubbing or peripheral cyanosis. No pretibial edema present. +3/5 radial and dorsalis pedis pulses palpated throughout. +5/5 strength noted in UE/LE bilaterally. NEUROLOGIC - Cranial nerves II through XII grossly intact. S PSYCH -alert and oriented to location. Slow to answer some questions. Results & Data Results & Data ([facility]) Vital Signs (Past 12 Hours) Vital Signs Temp Pulse Pulse Pulse Resp BP BP 04/16/22 07:25 57 L 04/16/22 03:33 36.6 C 60 18 124/62 04/15/22 22:01 70 04/15/22 21:59 75 04/15/22 21:54 37.7 C H 73 16 124/71 04/15/22 20:54 70 25 H 115/65 Pulse Ox O2 Del Method 04/16/22 07:25 04/16/22 03:33 96 Room Air 04/15/22 22:01 04/15/22 21:59 04/15/22 21:54 96 Room Air 04/15/22 20:54 96 Room Air
[2022-04-16] MEDS: METOPROLOL SUCC 50MG EXT REL TAB PO SCH ×2 (08:18→20:22)
[2022-04-16] MEDS: NITROFURANTOIN MONOHYDRATE 100 MG CAP PO SCH ×2 (08:18→20:22)
[2022-04-16] MEDS: ASPIRIN 81 MG ECTAB PO SCH (08:19)
[2022-04-16 10:42] LABS: Urea Nitrogen, Random Urine 588 mg/dL
[2022-04-16] MEDS: FINASTERIDE 5 MG TAB PO SCH (20:22)
[2022-04-16] MEDS ORDERED: CALCIUM CARBONATE 500 MG CHEWABLE TAB PO PRN (20:35)
[2022-04-17] MEDS: HEPARIN SOD 5,000 UNIT/0.5 ML VIAL SQ SCH ×3 (00:05→16:29)
[2022-04-17] MEDS: NITROFURANTOIN MONOHYDRATE 100 MG CAP PO SCH (08:01)
[2022-04-17] MEDS: ASPIRIN 81 MG ECTAB PO SCH (08:01)
[2022-04-17] MEDS: METOPROLOL SUCC 50MG EXT REL TAB PO SCH (08:01)
--- NOTE | 2022-04-17 09:50 | Hospitalist Progress Note ---
Date of Service April 17, 2022 Assessment & Plan (1) Weakness: Plan: * Appears to be chronic at this point with increasing frequency of falls. Family is in the process of working with [facility] for placement. * Case management has been in contact with [facility]. Apparently, there staffing person who accepts patients is out today so transfer will happen today. We are hopeful for Thursday. Please see case management note. * Question of UTI versus cystitis versus bladder calculi on imaging. * Patient had been transitioned to p.o. Macrobid which appears to be pansensitive. * Patient seen today and clinically appears well. (2) RUFINO (acute kidney injury): Plan: * Resolved (3) Cystitis: Plan: * As noted on US. * Transition to p.o. antibiotics. (4) Elevated troponin: Plan: * Of questionable significance at this point. They have cleared and are impro ving at this time (5) Fall: Plan: Please see above (6) Hypokalemia: Plan: Replace appropriate (7) HTN (hypertension): Plan: Continue home medications as tolerated. (8) Nocturnal hypoxemia: Plan: Encourage CPAP utilization (9) Severe obstructive sleep apnea: Plan: Continue to encourage CPAP use. (10) Systolic heart failure: (11) Elevated troponin: (12) BPH (benign prostatic hyperplasia): Admission and Anticipated Discharge Date Admission Date: April 14, 2022 Supervising Physician Co-Signing Physician Notes MIMI Supervision Note: I did not personally see or examine the patient today, but I verified all capone points of MIMI Wooten's assessment and plan with the following exceptions/additions: Pt with falls, elevated troponin, last known LVEF severely reduced at 30-35% in 11/2020 and no f/u with Cardiology since then. Does not have ICD in place. With PVCs and 3 beat run of VT on tele today. Resume home Entresto. Continue Toprol XL but actually is supposed to be on 25mg bid (not 50mg). Has been on GDMT for CHF and needds repeat ECHO If EF remains low, needs ICD for prevention of sudden cardiac . Restart Entresto check ECHO, consult Cardiology COncerning findings on Renal US with left hydroureter, possible clot in bladder- could be a mass, also with enlarged prostate--> will check CT abd/pel and consult Urology -continue Macrobid for now for UTI as no systemic involvement of infection Subjective Patient seen and evaluated bedside today. Patient is operating his breakfast. He appears much more pleasant today and is encouraged that he is close to being discharged. He again complains of some mild back discomfort which he has been dealing with for years. He reports that he has been urinating well and states that his urine has been clear this morning. Otherwise, he offers no complaints and is anticipating discharge to [facility] soon as possible. Review of Systems Review of Systems: A complete 6 point review of systems was reviewed with the patient with pertinent positives and negatives as per history of present illness. All else were negative. Physical Exam Physical Exam: VITAL SIGNS - Vital signs and nursing notes were reviewed. GENERAL - 82-year-old male appearing his stated age who is in no acute distress. Communicates well with provider and answers questions appropriately. LUNGS - Chest wall symmetric without accessory muscle use, intercostals retractions, or central cyanosis. Normal vesicular breath sounds CTA B/L. No wheezes, rales, or rhonchi appreciated. CARDIAC - RRR with S1/S2. No murmur, rubs, or gallops appreciated. ABDOMEN - Abdominal contour flat without pulsations or visible masses. BS normoactive all four quadrants. No tenderness, palpable masses, hepatosplenomegaly, or ascites noted. EXTREMITIES - No clubbing or peripheral cyanosis. No pretibial edema present. +3/5 radial and dorsalis pedis pulses palpated throughout. +5/5 strength noted in UE/LE bilaterally. NEUROLOGIC - Cranial nerves II through XII grossly intact. PSYCH -alert and oriented to location. Slow to answer some questions. Results & Data Results & Data ([facility]) Vital Signs (Past 12 Hours) Vital Signs Temp Pulse Pulse Resp BP Pulse Ox O2 Del Method 04/17/22 09:00 Room Air 04/17/22 08:05 36.4 C L 83 20 157/92 H 94 Room Air 04/17/22 07:02 74 04/17/22 02:15 36.8 C 64 18 127/62 96 Room Air 04/16/22 22:01 61 04/16/22 22:12 36.8 C 65 18 148/80 H 98 Room Air
[2022-04-17 10:43] LABS: Hematocrit (blood only) 38.4 % (40.1-51.0); Hemoglobin 12.6 g/dl (14.0-18.0); Mean Corpuscular Hemoglobin 30.1 pg (25.0-34.0); Mean Corpuscular Hgb Conc 32.8 g/dL (32.0-36.0); Mean Corpuscular Volume 91.9 fL (80.0-100.0); Mean Platelet Volume 9.4 fL (9.4-12.4); Platelet Count 425 K/uL (130-400); RDW Coefficient of Variation 14.3 % (11.5-14.5); RDW Standard Deviation 48.8 fL (36.4-46.3); Red Blood Count 4.18 M/uL (4.63-6.08)
[2022-04-17 11:09] LABS: Albumin Globulin Ratio 0.8 (0.9-2); BUN Creatinine Ratio 27.2 (10-20); Bilirubin,Total 1.1 mg/dl (0.2-1.0); Calcium 8.8 mg/dl (8.5-10.1); Creatinine Clr Calc Pharmacy 47.9 ml/min; Est GFR (African American) 62.2 ml/min; Est GFR (Non-African American) 53.7 ml/min; Globulin 3.6 gm/dl (2.5-4.0); Magnesium 2.1 mg/dl (1.7-2.4); Potassium 4.1 mmol/L (3.5-5.1); Total Protein 6.6 gm/dl (6.0-8.3)
--- NOTE | 2022-04-17 19:38 | CT Scan Report ---
CT SCAN OF THE ABDOMEN AND PELVIS WITHOUT IV CONTRAST CLINICAL HISTORY: Left-sided hydronephrosis COMPARISON STUDY: Renal ultrasound dated 04/15/2022. KUB dated 10/27/2019. TECHNIQUE: CT scan of the abdomen and pelvis is performed from the lung bases to the proximal femora. Images are reviewed in the axial, sagittal, and coronal planes. IV contrast was not administered for this examination. A dose lowering technique was utilized adhering to the principles of ALARA. CT DOSE: 356.77 mGy.cm FINDINGS: Lung bases: The heart is mildly enlarged and without pericardial effusion. The lung bases are clear. A small hiatal hernia is noted. Liver: The unenhanced liver is normal in size, contour, and attenuation. There is no intrahepatic rafa iary ductal dilatation. Gallbladder: There are calcified gallstones without CT evidence of acute cholecystitis. Spleen: Normal in size and attenuation. Pancreas: Unremarkable. Adrenal glands: Unremarkable. Kidneys: The unenhanced kidneys demonstrate cortical atrophy. There is fullness of the left renal col lecting system without hydronephrosis. There are numerous bilateral nonobstructing renal calculi whic h measure up to 2 cm. The left ureteral stone is seen. A 14 mm calcification in the right pelvis seen on image #332 may be located within or adjacent to the distal left ureter. There is no evidence of c ontour deforming renal mass lesion. Urothelial thickening is noted in the left renal pelvis and invol ving the left ureter. Abdominal vasculature: The abdominal aorta is normal in course and caliber. Bowel: There is mild to moderate diverticulosis of the left colon. There is wall thickening with sana colonic inflammation and trace fluid involving the proximal sigmoid consistent with acute diverticuli tis. This is best seen on image #303. Mild to moderate fecal retention is noted in the colon. The kim endix is well-visualized and normal. Peritoneum: There is no intraperitoneal free air or abdominal ascites. There is marked fatty atrophy of the paraspinous musculature. Lymphadenopathy: None. Pelvic viscera: The bladder is decompressed around a Wade catheter and not well evaluated. The wall appears thickened. An 11 mm bladder calculus is suggested on image #2 a 3-24. Gas is noted within the bladder lumen and there is pericystic inflammation. The prostate gland appears enlarged and heteroge neous. Skeletal structures: The skeletal structures are osteopenic. There is moderate lumbosacral spondylosi s. There are age-indeterminate superior endplate compression deformities of T12 and L2. No lytic or b lastic lesions are seen. IMPRESSION: 1. Acute diverticulitis of the sigmoid colon. 2. No intraperitoneal free air is identified and there is no organized fluid collection to suggest ab scess seen on this unenhanced examination. 3. Extensive bilateral nephrolithiasis as above. No hydronephrosis is seen. 4. A 14 mm calcification in the right pelvis is located either within or adjacent to the right ureter . A ureteral stone is favored. There is no upstream ureteral dilatation, and this was also likely pre sent on a 2020 radiograph. 5. The bladder is decompressed around a Wade catheter and not well assessed. 6. The bladder wall appears thickened and there is pericystic infiltration. Correlate with urinalysis . 7. A bladder calculus is identified. 8. Urothelial thickening is seen within the left renal pelvis and involving the left ureter. This paul uld also be correlated with clinical findings and urinalysis. 9. There are age indeterminant superior endplate compression deformities of T12 and L2. Correlate for point tenderness. 10. Cholelithiasis. 12. Additional findings as above. ACT 112: Negative or not required by law. Electronically signed by: Horacio Szymanski M.D. 04/17/2022 7:36 PM
[2022-04-17] MEDS ORDERED: VANCOMYCIN CONSULT ACTIVE PRN (20:01)
[2022-04-17] MEDS ORDERED: VANCOMYCIN HCL 1,750 MG in SODIUM CHLORIDE 0.9% 500 ML IV ONE (20:15)
[2022-04-17] MEDS ORDERED: VANCOMYCIN HCL 1,000 MG in SODIUM CHLORIDE 0.9% 250 ML IV SCH (20:15)
[2022-04-17] MEDS ORDERED: CIPROFLOXACIN / D5W 400 MG/200 ML BAG IV SCH (20:30)
[2022-04-17] MEDS: VALSARTAN/SACUBITRIL 51/49 MG TAB PO SCH (20:49)
[2022-04-17] MEDS: METOPROLOL SUCC 25MG EXT REL TAB PO SCH (20:49)
[2022-04-17] MEDS: SIMVASTATIN 40 MG TAB PO SCH (20:49)
[2022-04-17] MEDS: FINASTERIDE 5 MG TAB PO SCH (20:54)
[2022-04-17] MEDS ORDERED: levoFLOXacin/D5W 750 MG/150 ML BAG IV SCH (21:00)
[2022-04-17] MEDS: TAMSULOSIN HCL 0.4 MG CAP PO SCH (21:01)
[2022-04-17] MEDS: metroNIDAZOLE 500 MG/100 ML BAG IV SCH (21:04)
[2022-04-18] MEDS: HEPARIN SOD 5,000 UNIT/0.5 ML VIAL SQ SCH ×4 (00:05→23:56)
[2022-04-18] MEDS: metroNIDAZOLE 500 MG/100 ML BAG IV SCH ×2 (06:09→14:46)
[2022-04-18] MEDS: METOPROLOL SUCC 25MG EXT REL TAB PO SCH ×2 (08:57→22:02)
[2022-04-18] MEDS: VALSARTAN/SACUBITRIL 51/49 MG TAB PO SCH ×2 (08:58→22:03)
[2022-04-18] MEDS: ASPIRIN 81 MG ECTAB PO SCH (08:58)
[2022-04-18 09:18] LABS: Basophils # (auto) 0.07 K/uL (0-0.2); Basophils % (auto) 0.8 %; Eosinophils # (auto) 0.41 K/uL (0-0.50); Eosinophils % (auto) 4.6 %; Hematocrit (blood only) 35.7 % (40.1-51.0); Hemoglobin 12.1 g/dl (14.0-18.0); Immature Granulocytes # (auto) 0.23 K/uL (0.00-0.02); Immature Granulocytes % (auto) 2.6 %; Lymphocytes # (auto) 1.35 K/uL (1.2-3.4); Lymphocytes % (auto) 15.3 %; Mean Corpuscular Hgb Conc 33.9 g/dL (32.0-36.0); Mean Corpuscular Volume 88.4 fL (80.0-100.0); Mean Platelet Volume 9.3 fL (9.4-12.4); Monocytes % (auto) 11.3 %; Neutrophils # (auto) 5.77 K/uL (1.4-6.5); Neutrophils % (auto) 65.4 %; Platelet Count 445 K/uL (130-400); RDW Coefficient of Variation 13.6 % (11.5-14.5); RDW Standard Deviation 43.9 fL (36.4-46.3); Red Blood Count 4.04 M/uL (4.63-6.08); White Blood Count 8.83 K/ul (4.8-10.8)
--- NOTE | 2022-04-18 09:40 | Urology Consultation ---
Date of Consultation April 18, 2022 Assessment & Plan (1) Kidney stones: (2) RUFINO (acute kidney injury): (3) Complicated UTI (urinary tract infection): 82-year-old male with multiple comorbidities admitted for weakness, falls, and acute kidney injury. Urology consulted for RUFINO, hydronephrosis, UTI. He is afebrile, nontoxic and hemodynamically stable. Lab work reviewed - creatinine and WBC have normalized. CTAP reviewed - there is fullness and urothelial thickening of the left renal pelvis and left ureter, bilateral renal calculi and a bladder calculus. There is a right pelvic calcification, no right sided hydronephrosis noted. He remains asymptomatic from a stone standpoint. Urine culture grew out Enterococcus. Currently on levofloxacin. Also on metronidazole for diverticulitis. Patient found to have high-volume urinary retention, now managed with a Wade catheter. Wade is intact and draining some purulent appearing urine. Plan: No acute intervention at this time. Okay to have diet today. Continue antibiotics for treatment of urinary tract infection. Continue tamsulosin and finasteride for max medical therapy for prostate. Recommend maintain Wade catheter for at least 7 to 10 days or until urology f/u to allow maximum drainage. Recommend bowel regimen to normalize bowels. Recommend follow-up outpatient with our service for cystoscopy and discussion of bladder outlet procedure. Can repeat a PSA outpatient after acute issues resolve given his strong family history of prostate ca. with follow. Supervising Physician Co-Signing Physician Notes I have discussed Mr. Frost's case with ED Buck and agree with the above documentation. He remains afebrile and hemodynamically stable. Creatinine and WBC both within normal limits, arguing against any obstructed UTI. For now continue antibiotics, can narrow coverage as culture data becomes available. Maintain Wade catheter for 7 to 10 days for bladder rest, anticipate voiding trial as an outpatient. History of Present Illness Reason for Consultation: left hydronephrosis, RUFINO, UTI Requesting Physician: Dr. Mas Attending Physician: Malu Mas MD History of Present Illness This is an 82-year-old male with past medical history of dementia, hypertension, severe obstructive sleep apnea, cardiomyopathy, CAD, hyperlipidemia, systolic heart failure, kidney stones and BPH who presented to the emergency department on 04/14/2022 with complaint of weakness and falls. Urology is consulted for evaluation of left hydronephrosis, RUFINO, UTI. He is known to our service. He previously followed with Dr. Harris for history of stones and BPH with LUTS. Last office visit was in October 2019. He has had a GreenLight laser prostatectomy in 2013 done elsewhere. He is on Rapaflo and Finasteride. Chart independently reviewed including lab work and imaging. On admission, his lab work was notable for creatinine 1.84, WBC 13.78. Urinalysis showed 2+ blood, 3+ leukocyte esterase, >30 WBC, 0-4 RBC, 2+ bacteria. Urine culture obtained and grew out Enterococcus. Patient underwent renal ultrasound on 04/14 which showed mild to moderate left hydroureteronephrosis, no ureteral calculi visualized, numerous bilateral renal calculi. Distended bladder with extensive layering debris and a prominent prostate indenting into the base of the bladder, suspected bladder calculus. A bladder scan performed prior to CT was noted to be elevated and a Wade catheter was placed with return of 1800 mL. He is currently on IV metronidazole and levofloxacin. Lab work today shows a normal creatinine (0.98) and WBC (8.83). CT A/P without contrast was performed on 04/17 which noted acute diverticulitis of the sigmoid colon. There is fullness of the left renal collecting system and urothelial thickening seen within the left renal pelvis and proximal left ureter. Numerous bilateral nonobstructing renal calculi. Calcification is seen in the right pelvis, no right sided hydronephrosis. Patient seen and examined at bedside this morning. He is awake and resting in bed in no acute distress. Wade intact and draining cloudy urine with somewhat purulent appearing debris, some pink-tinged urine noted during exam. He denies abdominal, flank or suprapubic pain. No nausea or vomiting. No fever or chills. Denies dysuria or hematuria. Denies bothersome LUTS at baseline, reports nocturia x1 "when he takes his medication". He remains on Rapaflo and Finasteride. He reports constipation prior to admission. He reports prior surgical intervention for stones. Reports spontaneous stone passage in the past x1. Family history of prostate cancer2 brothers. Last PSA was 2.640 (5.28 adjusted for finasteride) in September 2019. Allergies Allergy/AdvReac Type Severity Reaction Status Date / Time Penicillins Allergy Severe Dizziness Verified 04/14/22 23:47 & SHORTNESS OF BREATH Home Medications Medication Instructions Recorded Confirmed Type aspirin 81 mg tablet,delayed 81 mg PO DAILY #30 tabs 12/12/20 04/14/22 Rx release sacubitril 49 mg-valsartan 51 mg 1 tab PO BID #60 tabs 12/12/20 04/14/22 Rx tablet (Entresto) furosemide 20 mg tablet 20 mg PO .DAILY THURSDAY/Thursday03/20/21 04/14/22 History silodosin 8 mg capsule (Rapaflo) 8 mg PO HS #90 caps 09/17/21 04/14/22 Rx finasteride 5 mg tablet 5 mg PO HS #90 tabs 02/17/22 04/14/22 Rx simvastatin 40 mg tablet 40 mg PO HS #90 tabs 02/17/22 04/14/22 Rx metoprolol succinate 25 mg 25 mg PO BID 04/14/22 04/14/22 History tablet,extended release 24 hr Patient History Medical History (Updated 04/18/22 @ 20:46 by Malu Mas MD) BPH (benign prostatic hyperplasia) Hearing difficulty Hyperlipidemia Kidney stones Lumbar spondylosis MVP (mitral valve prolapse) "MILD" -- follows w/ Dr. Nyoola Osteoarthritis PVC (premature ventricular contraction) Sleep apnea no device as of yet -- appt on 12/07 to determine if device needed or not Stenosis, cervical spine Systolic heart failure Urinary retention Surgical History History of cardiac cath 4 YEARS AGO/NO STENTS History of cataract surgery left cataract 09/29/2018. 2mg versed, 50mcg fentanyl. no issues. 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 Hx of transurethral resection of prostate Family History Brother Prostate cancer Father Kidney stones Other No family history of adverse response to anesthesia Social History Smoking Status: Never smoker Second Hand Exposure: No; Hx Alcohol Use: No Hx Substance Use: No Preferred Language: Maldivian Communication Ability: DEMENTIA Visual Impairment: Diminished Hearing Ability: Use of Hearing Aid Stripper Apprentice Required: No Beliefs That Will Affect Care: None marital status: Current Living Situation: Spouse Current Living Situation Comment: TRYING TO GET PLACEMENT AT [facility] current occupational status: retired Feels Safe at Home: Yes Childhood Exposure to Second-Hand Smoke: No caffeine: Yes (2 CUPS OF COFFEE DAILY) Dental Care, Regularly: Yes Physical Activity Frequency: Does not Exercise Physical Activity Frequency Comment: DUE TO PHYSICAL CONDITION Seatbelt Use: always Sunscreen Use: No Assistive Devices: Walker Review of Systems Review of Systems: All systems reviewed & are unremarkable except as noted in HPI & below Physical Exam Constitutional: well developed and well nourished; no acute distress and not ill appearing Eyes: no scleral abnormality Neck: normal visual inspection Respiratory: normal respiratory effort and able to speak in complete sentences; no respiratory distress and no labored breathing Cardiovascular: Extremities: no pedal edema Gastrointestinal (Abdomen): Inspection/Auscultation: abdomen normal to inspection; abdomen not distended Percussion/Palpation: + abdomen tender (mildy tender to palpation at left lower quadrant) and abdomen soft; no guarding Neurologic: moves all extremities and awake Psychiatric: Orientation: alert and oriented x 3 Genitourinary: Wade intact and draining cloudy urine with somewhat purulent appearing debris, some pink-tinged urine noted during exam. Results & Data ([facility]) Vital Signs (Past 12 Hours) Vital Signs Temp Pulse Pulse Resp BP Pulse Ox O2 Del Method 04/18/22 07:58 37 C 65 20 121/71 98 Room Air 04/18/22 07:25 63 04/18/22 05:35 36.2 C L 75 18 117/72 95 Room Air 04/18/22 00:00 68 04/18/22 00:13 36.7 C 65 22 132/75 96 Room Air PG Care Time/CCT Total # of Minutes Spent Total Time Spent with Patient: Total time spent is greater than 50% in coordination of care (as documented) at patient's floor/unit and/or counseling patient: Coding Level of Care Code 76786 Inpt Consult Level 4 Diagnoses Kidney stones N20.0 RUFINO (acute kidney injury) N17.9 Complicated UTI (urinary tract infection) N39.0
[2022-04-18 09:41] LABS: BUN Creatinine Ratio 25.5 (10-20); Calcium 8.4 mg/dl (8.5-10.1); Est GFR (African American) 83.5 ml/min; Magnesium 1.8 mg/dl (1.7-2.4); Potassium 3.8 mmol/L (3.5-5.1)
--- NOTE | 2022-04-18 15:55 | Hospitalist Progress Note ---
Date of Service April 18, 2022 Assessment & Plan (1) Weakness: Plan: * Appears to be chronic at this point with increasing frequency of falls. Family is in the process of working with [facility] for placement. * Case management continues to have the patient placed at [facility]. Family is hoping to be placed soon * Clinically, the patient appears to be improving * Regarding the recent falls, the patient also had a small run of V. tach last evening. Per attendings review of chart, the patient had a poor EF and no recent follow-up. A.m. echocardiogram was obtained which demonstrated improvement in EF as well as left ventricular function. No medications were adjusted. Cardiology consultation pending * Furthermore, falls could have been precipitated by significant urinary retention, UTI, acute kidney injury, and sigmoid diverticulitis-treatment for all as below (2) Acute diverticulitis: Plan: * As noted on CT imaging last evening. Patient changed to IV Levaquin and Flagy l and made n.p.o. initially. * As there is no need for surgical intervention from a urologic standpoint, the patient's status is upgraded to clear liquids. Advance diet to low fiber tomorrow as tolerated * Antibiotics can be transitioned to p.o. Levaquin and Flagyl to finish out 10- day course * Patient's abdomen is soft and minimally tender. He feels better at this point. * Recommend colonoscopy in 6 to 8 weeks (3) RUFINO (acute kidney injury): Plan: * Resolved, secondary to severe urinary retention likely from enlarged prostate and bladder stone, UTI * Maintain Wade catheter (4) Cystitis: Plan: * Follow-up CT demonstrates multiple stones as well as concern for bladder stone and left ureteral thickening. Urology was consulted. Patient required Wade catheter placement for urinary retention of 1800 mL. He will keep the Wade catheter in place for the next 10 to 14 days until he is able to follow-up with urology. Otherwise, he is passing clear angelica urine and feeling well. * No fevers, leukocytosis now resolved * Antibiotics changed to Levaquin for appropriate coverage of Enterococcus with a sending infection. * Continue finasteride and tamsulosin (5) Elevated troponin: Plan: * Myocardial demand ischemia in the setting of known cardiomyopathy and stress of infection. Troponin trended downward * Echo demonstrates EF of 40 to 45% with improvement in previously seen poor wall motion abnormality. * Appreciate cardiology consultation (6) Fall: Plan: Please see above Needs rehab placement (7) Hypokalemia: Plan: Replace appropriate (8) HTN (hypertension): Plan: Blood pressures are stable Continue metoprolol, Entresto (9) Severe obstructive sleep apnea: Plan: Continue to encourage CPAP use. (10) Systolic heart failure: Plan: With chronic systolic heart failure, previous EF 30-35% in 11/2020 with no cardiology follow-up since that time Has been maintained on guideline directed medical therapy with Entresto and Toprol-XL Fortunately, EF is now improved here on repeat echocardiogram to 40-45% No ICD indicated at this point He is euvolemic, no diuretics needed Follow-up with cardiology as an outpatient Consider addition of SGLT2 inhibitor Appreciate cardiology consultation (11) Urinary retention: Plan: As above Maintain Wade catheter and follow-up with urology for cystoscopy and possible procedure on prostate Will need PSA as an outpatient Plan DVT prophylaxis Heparin SQ Disposition-improving, likely medically stable for discharge to rehab tomorrow. Acceptance pending at [facility] Admission and Anticipated Discharge Date Admission Date: April 14, 2022 Supervising Physician Co-Signing Physician Notes PA Supervision Note: I did not personally see or examine the patient today, but I verified all capone points of MIMI Wooten's assessment and plan with the following exceptions/additions: Multiple annotations made to note as above. Subjective Patient was seen and evaluated this afternoon at bedside. His and family are present. Patient reports feeling much better at this time. He is requesting his diet be progressed. We will place order for increasing diet in the morning. Family is questioning when he can be discharged home. They report that they have a point of contact at [facility] and wished to be discharged as soon as possible. I will reach out to case management. Otherwise, the patient clinically appears well and is in minimal discomfort at this time. He is tolerating the Wade catheter well and has no complaints of abdominal pain Review of Systems Review of Systems: A complete 6 point review of systems was reviewed with the patient with pertinent positives and negatives as per history of present illness. All else were negative. Physical Exam Physical Exam: VITAL SIGNS - Vital signs and nursing notes were reviewed. GENERAL - 82-year-old male appearing his stated age who is in no acute distress. Communicates well with provider and answers questions appropriately. LUNGS - Chest wall symmetric without accessory muscle use, intercostals retractions, or central cyanosis. Normal vesicular breath sounds CTA B/L. No wheezes, rales, or rhonchi appreciated. CARDIAC - RRR with S1/S2. No murmur, rubs, or gallops appreciated. ABDOMEN - Abdominal contour flat without pulsations or visible masses. BS normoactive all four quadrants. No tenderness, palpable masses, hepatosplenomegaly, or ascites noted. EXTREMITIES - No clubbing or peripheral cyanosis. No pretibial edema present. +3/5 radial and dorsalis pedis pulses palpated throughout. +5/5 strength noted in UE/LE bilaterally. NEUROLOGIC - Cranial nerves II through XII grossly intact. PSYCH -alert and oriented to location. Slow to answer some questions. Results & Data Results & Data ([facility]) Vital Signs (Past 12 Hours) Vital Signs Temp Pulse Pulse Resp BP Pulse Ox O2 Del Method 04/18/22 14:59 82 04/18/22 11:29 36.6 C 70 19 110/62 94 Room Air 04/18/22 09:00 Room Air 04/18/22 07:58 37 C 65 20 121/71 98 Room Air 04/18/22 07:25 63 04/18/22 05:35 36.2 C L 75 18 117/72 95 Room Air
[2022-04-18] MEDS ORDERED: Nursing to Pharmacy Communication SCH (16:45)
--- NOTE | 2022-04-18 18:11 | Cardiology Consultation ---
Date of Consultation April 18, 2022 Assessment & Plan (1) Cardiomyopathy, dilated, nonischemic: (2) Elevated troponin: (3) Mitral regurgitation: Plan 1. Cardiomyopathy: Longstanding nonischemic cardiomyopathy. At his last clinic visit with [facility] he was started on Entresto. He has not had follow- up in over a year but is scheduled for follow-up in the near future. He seems to have had some improvement in overall LV systolic function. He appears to be well compensated without symptoms congestive heart failure. He can continue his current metoprolol succinate and Entresto. Given his intermediate degree of LV dysfunction he may be a good candidate for an SG LT2 inhibitor 2. Falls: He does not report overt syncope. Review of his telemetry did not reveal any concerning arrhythmias. He does not describe palpitations or dizziness. 3. Valvular heart disease: Mild aortic regurgitation and [id number] mitral regurgitation. This can be followed over time 4. Elevated troponin: Not indicative of a recent acute coronary syndrome. Mild elevations likely related to his degree of LV dysfunction and underlying cardiomyopathy. History of Present Illness Reason for Consultation: Cardiomyopathy Requesting Physician: Chace Attending Physician: Malu Mas MD History of Present Illness The patient is an 82-year-old gentleman with a longstanding history of a nonischemic cardiomyopathy who was admitted to the hospital for gait instability and falling. The patient states that he has some unsteadiness with walking. He claims to have fallen and had difficulty getting up. Due to weakness in his legs. He denies associated dizziness or lightheadedness. He did not report any loss of consciousness or syncope. He has not had recent difficulty with breathing or orthopnea. He did report some mild ankle edema primarily in his left ankle he does not monitor his weight at home but does not feel like he has gained weight recently. He has not noticed any increasing abdominal girth. No exertional chest pain. Allergies Allergy/AdvReac Type Severity Reaction Status Date / Time Penicillins Allergy Severe Dizziness Verified 04/14/22 23:47 & SHORTNESS OF BREATH Home Medications Medication Instructions Recorded Confirmed Type aspirin 81 mg tablet,delayed 81 mg PO DAILY #30 tabs 12/12/20 04/14/22 Rx release sacubitril 49 mg-valsartan 51 mg 1 tab PO BID #60 tabs 12/12/20 04/14/22 Rx tablet (Entresto) furosemide 20 mg tablet 20 mg PO .DAILY THURSDAY/Thursday03/20/21 04/14/22 History silodosin 8 mg capsule (Rapaflo) 8 mg PO HS #90 caps 09/17/21 04/14/22 Rx finasteride 5 mg tablet 5 mg PO HS #90 tabs 02/17/22 04/14/22 Rx simvastatin 40 mg tablet 40 mg PO HS #90 tabs 02/17/22 04/14/22 Rx metoprolol succinate 25 mg 25 mg PO BID 04/14/22 04/14/22 History tablet,extended release 24 hr Patient History Medical History (Updated 04/18/22 @ 15:50 by Earnest Wooten PA-C) BPH (benign prostatic hyperplasia) Hearing difficulty Hyperlipidemia Kidney stones Lumbar spondylosis MVP (mitral valve prolapse) "MILD" -- follows w/ Dr. Noyola Osteoarthritis PVC (premature ventricular contraction) Sleep apnea no device as of yet -- appt on 12/07 to determine if device needed or not Stenosis, cervical spine Surgical History History of cardiac cath 4 YEARS AGO/NO STENTS History of cataract surgery left cataract 09/29/2018. 2mg versed, 50mcg fentanyl. no issues. 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 Hx of transurethral resection of prostate Family History Brother Prostate cancer Father Kidney stones Other No family history of adverse response to anesthesia Social History Smoking Status: Never smoker Second Hand Exposure: No; Hx Alcohol Use: No Hx Substance Use: No Preferred Language: Vietnamese Communication Ability: DEMENTIA Visual Impairment: Diminished Hearing Ability: Use of Hearing Aid Mortician Helper Required: No Beliefs That Will Affect Care: None marital status: Current Living Situation: Spouse Current Living Situation Comment: TRYING TO GET PLACEMENT AT [facility] current occupational status: retired Feels Safe at Home: Yes Childhood Exposure to Second-Hand Smoke: No caffeine: Yes (2 CUPS OF COFFEE DAILY) Dental Care, Regularly: Yes Physical Activity Frequency: Does not Exercise Physical Activity Frequency Comment: DUE TO PHYSICAL CONDITION Seatbelt Use: always Sunscreen Use: No Assistive Devices: Walker Review of Systems Review of Systems: Per HPI. He reports being under lot of stress recently due to his 's dementia and unwillingness to cooperate with an escalation in care Physical Exam Physical Exam: The patient is alert and oriented. Mood and affect appeared normal. He answered all questions appropriately. HEENT: Pupils are equal and reactive to light and accommodation. Extraocular movements are intact. The sclerae are anicteric. Neuro: Cranial nerves intact. Lungs: Clear to auscultation bilaterally. He has good air movement without use of accessory muscles. No rales wheezes or rhonchi. Cardiac: Heart demonstrates a regular rate and rhythm. Normal S1 and S2. No murmurs on examination. Pulses: The patient has palpable radial pulses bilaterally that are equal in intensity Extremities: There was no evidence of hypoperfusion. There is no cyanosis or clubbing. Very mild bilateral ankle edema. Skin: I did not appreciate any rashes on examination today. Results & Data ([facility]) Vital Signs (Past 12 Hours) Vital Signs Temp Pulse Pulse Resp BP Pulse Ox O2 Del Method 04/18/22 15:54 36.7 C 69 18 104/61 97 Room Air 04/18/22 14:59 82 04/18/22 11:29 36.6 C 70 19 110/62 94 Room Air 04/18/22 09:00 Room Air 04/18/22 07:58 37 C 65 20 121/71 98 Room Air 04/18/22 07:25 63 Laboratory Results Abnormal Lab Results 04/18/22 04/18/22 08:43 08:43 WBC 8.83 RBC 4.04 L Hgb 12.1 L Hct 35.7 L MCV 88.4 MCH 30.0 MCHC 33.9 RDW Std Deviation 43.9 RDW Coeff of Inderjit 13.6 Plt Count 445 H MPV 9.3 L Immature Gran % (Auto) 2.6 Neut % (Auto) 65.4 Lymph % (Auto) 15.3 Morton % (Auto) 11.3 Eos % (Auto) 4.6 Baso % (Auto) 0.8 Neut # (Auto) 5.77 Lymph # (Auto) 1.35 Morton # (Auto) 1.00 H Eos # (Auto) 0.41 Baso # (Auto) 0.07 Immature Gran # (Auto) 0.23 H Sodium 137 Potassium 3.8 Chloride 106 Carbon Dioxide 24 Anion Gap 7 BUN 25 H Creatinine 0.98 Est Cr Clr Drug Dosing 61.0 Est GFR ( Amer) 83.5 Est GFR (Non-Af Amer) 72.0 BUN/Creatinine Ratio 25.5 H Glucose 106 H Calcium 8.4 L Magnesium 1.8 Diagnostic Findings Cardiac catheterization performed 12/07/2014 without evidence of significant coronary artery disease. Normal LV function at that time Holter monitor 12/2019: 4% PVCs Echocardiogram performed today revealed mildly reduced LV systolic function with an ejection fraction of 45%. Moderate LVH. Moderate left atrial dilation. Moderate aortic regurgitation. [id number] mitral regurgitation. ECG Additional Comments: EKG demonstrates sinus rhythm with frequent atrial ectopy. Left ventricular hypertrophy and nonspecific ST and T-wave changes PG Care Time/CCT Total # of Minutes Spent Total Time Spent with Patient: Total time spent is greater than 50% in coordination of care (as documented) at patient's floor/unit and/or counseling patient: Coding Level of Care Code 42956 Initial Inpt Care Lvl 3 Diagnoses Cardiomyopathy, dilated, nonischemic I42.0 Elevated troponin R77.8 Mitral regurgitation I34.0
[2022-04-18] MEDS: FINASTERIDE 5 MG TAB PO SCH (22:01)
[2022-04-18] MEDS: SIMVASTATIN 40 MG TAB PO SCH (22:02)
[2022-04-18] MEDS: TAMSULOSIN HCL 0.4 MG CAP PO SCH (22:04)
[2022-04-18] MEDS: metroNIDAZOLE 500 MG TAB PO SCH (22:04)
[2022-04-18] MEDS: levoFLOXacin 750 MG TAB PO SCH (22:08)
[2022-04-19] MEDS: metroNIDAZOLE 500 MG TAB PO SCH ×3 (06:29→22:16)
[2022-04-19 07:36] LABS: Basophils # (auto) 0.08 K/uL (0-0.2); Basophils % (auto) 0.8 %; Eosinophils # (auto) 0.51 K/uL (0-0.50); Eosinophils % (auto) 5.4 %; Hematocrit (blood only) 36.5 % (40.1-51.0); Hemoglobin 12.3 g/dl (14.0-18.0); Immature Granulocytes # (auto) 0.43 K/uL (0.00-0.02); Immature Granulocytes % (auto) 4.6 %; Lymphocytes # (auto) 1.48 K/uL (1.2-3.4); Lymphocytes % (auto) 15.7 %; Mean Corpuscular Hemoglobin 30.4 pg (25.0-34.0); Mean Corpuscular Hgb Conc 33.7 g/dL (32.0-36.0); Mean Corpuscular Volume 90.3 fL (80.0-100.0); Monocytes # (auto) 1.04 K/uL (0.24-0.82); Neutrophils # (auto) 5.91 K/uL (1.4-6.5); Neutrophils % (auto) 62.5 %; Platelet Count 451 K/uL (130-400); RDW Coefficient of Variation 13.9 % (11.5-14.5); Red Blood Count 4.04 M/uL (4.63-6.08); White Blood Count 9.45 K/ul (4.8-10.8)
[2022-04-19 07:58] LABS: BUN Creatinine Ratio 21.9 (10-20); Calcium 8.3 mg/dl (8.5-10.1); Creatinine Clr Calc Pharmacy 62.3 ml/min; Est GFR (African American) 85.6 ml/min; Est GFR (Non-African American) 73.8 ml/min; Magnesium 1.7 mg/dl (1.7-2.4); Phosphorus 2.2 mg/dl (2.5-4.9)
--- NOTE | 2022-04-19 08:55 | Urology Progress Note ---
Date of Service April 19, 2022 Assessment & Plan (1) Urinary retention: Plan: Urinary retention currently managed with Wade catheter. We will arrange outpatient follow-up for voiding trial. Continue silodosin and finasteride for now. (2) Complicated UTI (urinary tract infection): Plan: Urine culture showing Enterococcus. Currently he is doing well on levofloxacin. When appropriate, he can be discharged on levofloxacin, Would recommend 10 to 14 days. (3) Kidney stones: Plan: We reviewed the stones in his kidneys. He is not having any symptoms at this point. Unclear whether the pelvic calcification is a ureteral stone or phlebolith. In absence of symptoms as well as with normal WBC and creatinine, we will hold off intervention at this time. Further stone management will be discussed as an outpatient. Plan No plan for further urologic intervention at this time. Urology will sign off for now and arrange outpatient follow-up for voiding trial and further discussion of nephrolithiasis urinary retention. Please call with any questions or concerns. Admission and Anticipated Discharge Date Admission Date: April 14, 2022 Subjective Feeling well, feels somewhat hot but denies any overt fevers Tolerating the catheter reasonably well, no issues with catheter drainage Denies any flank pain WBC 9.45, creatinine 0.96 Physical Exam Physical Exam: Well-appearing, NAD Genitourinary: Wade catheter in place draining slightly cloudy yellow urine Results & Data ([facility]) Vital Signs (Past 12 Hours) Vital Signs Temp Pulse Pulse Resp BP Pulse Ox O2 Del Method 04/19/22 08:20 36.8 C 81 18 110/73 99 Room Air 04/18/22 22:33 62 04/18/22 22:55 36.4 C L 61 18 107/63 95 Room Air PG Care Time/CCT Total # of Minutes Spent Total Time Spent with Patient: Total time spent is greater than 50% in coordination of care (as documented) at patient's floor/unit and/or counseling patient: Coding Level of Care Code 90149 Subseq Hosp Care Lvl 2 Diagnoses Urinary retention R33.9 Complicated UTI (urinary tract infection) N39.0 Kidney stones N20.0
[2022-04-19] MEDS: VALSARTAN/SACUBITRIL 51/49 MG TAB PO SCH ×2 (09:34→20:25)
[2022-04-19] MEDS: ASPIRIN 81 MG ECTAB PO SCH (09:34)
[2022-04-19] MEDS: METOPROLOL SUCC 25MG EXT REL TAB PO SCH ×2 (09:34→20:25)
[2022-04-19] MEDS: HEPARIN SOD 5,000 UNIT/0.5 ML VIAL SQ SCH ×3 (09:35→23:49)
[2022-04-19] MEDS: levoFLOXacin 750 MG TAB PO SCH (14:16)
--- NOTE | 2022-04-19 16:17 | Hospitalist Progress Note ---
Date of Service April 19, 2022 Assessment & Plan (1) Fall: Plan: Presented with increased frequency of falls. Family is in the process of working with [facility] for placement prior to admission. Falls could have been precipitated by significant urinary retention, UTI, acute kidney injury, and sigmoid diverticulitis-treatment for all as below Only had one 3 beat run of V. tach on telemetry and his EF has actually improved from previous up to 40-45% so doubtful that he had ventricular arrhythmia causing falls No significant valvular disease on echocardiogram TSH normal. With mild normocytic anemia No significant abnormalities with blood pressures but will check orthostatics as he did mention being lightheaded at times Check B12 in the morning (2) RUFINO (acute kidney injury): Plan: Resolved, secondary to severe urinary retention likely from enlarged prostate and bladder stone, UTI Maintain Wade catheter Have since restarted Entresto Can continue to hold furosemide Mondays and Fridays and just give as needed for edema or weight gain (3) Urinary retention: Plan: Given UTI, left hydronephrosis, bladder scan checked and found to have postvoid residual of almost 1300 mL. Wade catheter placed on 04/17 for an immediate 1800 mL of urine Patient really had minimal symptoms with this He reports he sometimes forgets to take his Rapaflo at home He has a previous history of greenlight laser procedure on the prostate many years ago in [place] Appreciate urology consultation Maintain Wade catheter for 7-10 days and follow-up with urology for cystoscopy and possible procedure on prostate in the future if fails trial of void Continue tamsulosin while here as Rapaflo not available. Continue finasteride Will need PSA as an outpatient (4) Cystitis: Plan: Follow-up CT demonstrates multiple stones as well as concern for bladder stone and left ureteral thickening. Urology was consulted. Patient required Wade catheter placement for urinary retention of 1800 mL. He will keep the Wade catheter in place for the next 10 to 14 days until he is able to follow-up with urology. Otherwise, he is passing clear angelica urine and feeling well. No fevers, leukocytosis now resolved Continue Levaquin for appropriate coverage of Enterococcus with ascending infection (5) Acute diverticulitis: Plan: As noted on CT imaging performed for hydronephrosis seen on renal ultrasound. He really did not have symptoms at all of this i.e. no abdominal pain Continue Levaquin and Flagyl to finish out a 10-day course Diet has been advanced to low fiber and he is tolerating this well Recommend colonoscopy in 6 to 8 weeks (6) Elevated troponin: Plan: Myocardial demand ischemia in the setting of known cardiomyopathy and stress of infection. Troponin trended downward Echo demonstrates EF of 40 to 45% with improvement in previously seen poor wall motion abnormality. cardiology consultation appreciated-no further evaluation needed (7) HTN (hypertension): Plan: Blood pressures are stable Continue metoprolol, Entresto (8) Systolic heart failure: Plan: With chronic systolic heart failure, previous EF 30-35% in 11/2020 with no cardiology follow-up since that time Has been maintained on guideline directed medical therapy with Entresto and Toprol-XL Fortunately, EF is now improved here on repeat echocardiogram to 40-45% No ICD indicated at this point He is euvolemic, no diuretics needed except as needed Follow-up with cardiology as an outpatient Consider addition of SGLT2 inhibitor as an outpatient Appreciate cardiology consultation (9) Severe obstructive sleep apnea: Plan: Continue to encourage CPAP use but he is refusing Plan DVT prophylaxis Heparin SQ Disposition-much improved. Medically stable for discharge but hopeful for early next week acceptance pending at [facility] Admission and Anticipated Discharge Date Admission Date: April 14, 2022 Subjective Feeling well. Denies abdominal pain. No bowel movement he thinks in several days but nursing reports he had one yesterday but he forgot. Denies chest pains or shortness of breath. His Wade catheter is draining nicely. Telemetry with normal sinus rhythm with rates in 70s to 90s Review of Systems Review of Systems: All systems reviewed & are unremarkable except as noted in HPI & below Physical Exam Constitutional: WD/WN, vitals as above Eyes: + anicteric sclerae Neck: trachea midline, no thyromegaly Respiratory: normal respiratory effort, lungs clear to auscultation Cardiovascular: RRR, no murmur, no edema Chest (Breasts): Chest: normal inspection of chest Gastrointestinal (Abdomen): normal bowel sounds, soft, nontender, no he patosplenomegaly Musculoskeletal: Extremities: extremities normal to inspection; no cyanosis and no clubbing Skin: no rashes, warm and dry Neurologic: moves all extremities and awake; no focal motor deficits Psychiatric: A+Ox3, euthymic affect Genitourinary: Wade catheter in place draining clear yellow urine with some sediment Lymphatic: no lymphedema Results & Data Results & Data ([facility]) Vital Signs (Past 12 Hours) Vital Signs Temp Pulse Pulse Resp BP BP Pulse Ox 04/19/22 16:10 36.4 C L 87 17 102/66 95 04/19/22 08:00 61 04/19/22 11:08 36.5 C 74 20 108/71 93 04/19/22 08:20 36.8 C 81 18 110/73 99 O2 Del Method 04/19/22 16:10 Room Air 04/19/22 08:00 04/19/22 11:08 Room Air 04/19/22 08:20 Room Air Laboratory Results 04/19/22 07:15 04/19/22 07:15 PG Care Time/CCT Total # of Minutes Spent Total Time Spent with Patient: Total time spent is greater than 50% in coordination of care (as documented) at patient's floor/unit and/or counseling patient: Coding Level of Care Code 99724 Subseq Hosp Care Lvl 2 Diagnoses Fall W19.XXXA RUFINO (acute kidney injury) N17.9 Urinary retention R33.9 Cystitis N30.90 Acute diverticulitis K57.92 Elevated troponin R77.8 HTN (hypertension) I10 Systolic heart failure I50.20 Severe obstructive sleep apnea G47.33
[2022-04-19] MEDS: FINASTERIDE 5 MG TAB PO SCH (20:25)
[2022-04-19] MEDS: SIMVASTATIN 40 MG TAB PO SCH (20:25)
[2022-04-19] MEDS: TAMSULOSIN HCL 0.4 MG CAP PO SCH (20:26)
[2022-04-19] MEDS: MELATONIN 3 MG TAB PO PRN (22:16)
[2022-04-19] MEDS: DOCUSATE SODIUM 100 MG CAP PO SCH (22:17)
[2022-04-20] MEDS: metroNIDAZOLE 500 MG TAB PO SCH ×3 (06:10→22:11)
[2022-04-20 06:46] LABS: Hematocrit (blood only) 36.3 % (40.1-51.0); Hemoglobin 12.2 g/dl (14.0-18.0); Mean Corpuscular Hemoglobin 29.7 pg (25.0-34.0); Mean Corpuscular Hgb Conc 33.6 g/dL (32.0-36.0); Mean Corpuscular Volume 88.3 fL (80.0-100.0); Mean Platelet Volume 8.9 fL (9.4-12.4); Platelet Count 453 K/uL (130-400); RDW Coefficient of Variation 14.1 % (11.5-14.5); RDW Standard Deviation 45.7 fL (36.4-46.3); Red Blood Count 4.11 M/uL (4.63-6.08); White Blood Count 11.57 K/ul (4.8-10.8)
[2022-04-20 07:06] LABS: BUN Creatinine Ratio 22.3 (10-20); Calcium 8.3 mg/dl (8.5-10.1); Creatinine Clr Calc Pharmacy 49.4 ml/min; Est GFR (African American) 64.7 ml/min; Est GFR (Non-African American) 55.8 ml/min; Magnesium 1.6 mg/dl (1.7-2.4); Potassium 4.2 mmol/L (3.5-5.1)
[2022-04-20 07:16] LABS: Basophils # (auto) 0.09 K/uL (0-0.2); Basophils % (auto) 0.8 %; Eosinophils # (auto) 0.43 K/uL (0-0.50); Eosinophils % (auto) 3.7 %; Immature Granulocytes # (auto) 0.66 K/uL (0.00-0.02); Immature Granulocytes % (auto) 5.7 %; Lymphocytes # (auto) 1.98 K/uL (1.2-3.4); Lymphocytes % (auto) 17.1 %; Monocytes # (auto) 1.15 K/uL (0.24-0.82); Monocytes % (auto) 9.9 %; Neutrophils # (auto) 7.26 K/uL (1.4-6.5); Neutrophils % (auto) 62.8 %
[2022-04-20] MEDS: DOCUSATE SODIUM 100 MG CAP PO SCH ×2 (08:24→22:11)
[2022-04-20] MEDS: HEPARIN SOD 5,000 UNIT/0.5 ML VIAL SQ SCH ×3 (08:24→22:48)
[2022-04-20] MEDS: ASPIRIN 81 MG ECTAB PO SCH (08:25)
[2022-04-20] MEDS: METOPROLOL SUCC 25MG EXT REL TAB PO SCH ×2 (08:25→22:11)
[2022-04-20] MEDS: VALSARTAN/SACUBITRIL 51/49 MG TAB PO SCH ×2 (08:25→22:12)
[2022-04-20] MEDS: levoFLOXacin 750 MG TAB PO SCH (13:49)
--- NOTE | 2022-04-20 19:44 | Hospitalist Progress Note ---
Date of Service April 20, 2022 Assessment & Plan (1) Fall: Plan: Presented with increased frequency of falls. Family is in the process of working with [facility] for placement prior to admission. Falls could have been precipitated by significant urinary retention, UTI, acute kidney injury, and sigmoid diverticulitis-treatment for all as below Only had one 3 beat run of V. tach on telemetry and his EF has actually improved from previous up to 40-45% so doubtful that he had ventricular arrhythmia causing falls No significant valvular disease on echocardiogram TSH normal. With mild normocytic anemia No significant abnormalities with blood pressures but will check orthostatics as he did mention being lightheaded at times Check B12 in the morning (2) RUFINO (acute kidney injury): Plan: Resolved, secondary to severe urinary retention likely from enlarged prostate and bladder stone, UTI Maintain Wade catheter Have since restarted Entresto Can continue to hold furosemide Mondays and Fridays and just give as needed for edema or weight gain (3) Urinary retention: Plan: Given UTI, left hydronephrosis, bladder scan checked and found to have postvoid residual of almost 1300 mL. Wade catheter placed on 04/17 for an immediate 1800 mL of urine Patient really had minimal symptoms with this He reports he sometimes forgets to take his Rapaflo at home He has a previous history of greenlight laser procedure on the prostate many years ago in [place] Appreciate urology consultation Maintain Wade catheter for 7-10 days and follow-up with urology for cystoscopy and possible procedure on prostate in the future if fails trial of void Continue tamsulosin while here as Rapaflo not available. Continue finasteride Will need PSA as an outpatient (4) Cystitis: Plan: Follow-up CT demonstrates multiple stones as well as concern for bladder stone and left ureteral thickening. Urology was consulted. Patient required Wade catheter placement for urinary retention of 1800 mL. He will keep the Wade catheter in place for the next 10 to 14 days until he is able to follow-up with urology. Otherwise, he is passing clear aneglica urine and feeling well. No fevers, leukocytosis now resolved Continue Levaquin for appropriate coverage of Enterococcus with ascending infection (5) Acute diverticulitis: Plan: As noted on CT imaging performed for hydronephrosis seen on renal ultrasound. He really did not have symptoms at all of this i.e. no abdominal pain Continue Levaquin and Flagyl to finish out a 10-day course Diet has been advanced to low fiber and he is tolerating this well Recommend colonoscopy in 6 to 8 weeks (6) Elevated troponin: Plan: Myocardial demand ischemia in the setting of known cardiomyopathy and stress of infection. Troponin trended downward Echo demonstrates EF of 40 to 45% with improvement in previously seen poor wall motion abnormality. cardiology consultation appreciated-no further evaluation needed (7) HTN (hypertension): Plan: Blood pressures are stable Continue metoprolol, Entresto (8) Systolic heart failure: Plan: With chronic systolic heart failure, previous EF 30-35% in 11/2020 with no cardiology follow-up since that time Has been maintained on guideline directed medical therapy with Entresto and Toprol-XL Fortunately, EF is now improved here on repeat echocardiogram to 40-45% No ICD indicated at this point He is euvolemic, no diuretics needed except as needed Follow-up with cardiology as an outpatient Consider addition of SGLT2 inhibitor as an outpatient Appreciate cardiology consultation (9) Severe obstructive sleep apnea: Plan: Continue to encourage CPAP use but he is refusing Plan DVT prophylaxis Heparin SQ Disposition-much improved. Medically stable for discharge but hopeful for early next week acceptance pending at [facility] Admission and Anticipated Discharge Date Admission Date: April 14, 2022 Subjective Feeling well. Denies abdominal pain. Patient reports that he feels better with a bowel movement today Physical Exam Physical Exam: Constitutional: no acute distress, pleasant. Vitals as above. HEENT: No scleral injection or discharge. . Clear oropharynx without exudate. Neck: Supple without lymphadenopathy or thyromegaly. Trachea midline. Lungs: Clear to auscultation bilaterally with good effort. Cardiac: Normal rhythm. No murmurs.No extremity edema. 2+ distal peripheral pulses. Abdomen:Bowel sounds present. Soft and nondistended. . No guarding or rebound tenderness MSK: No cyanosis or clubbing. Extremities motor strength 5/5. Skin: No rashes, warm, dry. Neurologic: Grossly intact cranial nerves. Results & Data Results & Data ([place]) Vital Signs (Past 12 Hours) Vital Signs Temp Pulse Pulse Resp BP BP Pulse Ox 04/20/22 19:00 36.5 C 66 18 101/62 94 04/20/22 15:34 36.7 C 63 18 109/56 L 92 04/20/22 16:31 63 04/20/22 16:06 67 20 99/59 L 95 04/20/22 11:55 36.7 C 65 19 106/60 96 04/20/22 08:17 36.9 C 62 17 113/62 97 04/20/22 07:44 57 L O2 Del Method 04/20/22 19:00 Room Air 04/20/22 15:34 Room Air 04/20/22 16:31 04/20/22 16:06 Room Air 04/20/22 11:55 Room Air 04/20/22 08:17 Room Air 04/20/22 07:44 PG Care Time/CCT Total # of Minutes Spent Total Time Spent with Patient: Total time spent is greater than 50% in coordination of care (as documented) at patient's floor/unit and/or counseling patient: Coding Level of Care Code 02838 Subseq Hosp Care Lvl 2 Diagnoses Fall W19.XXXA RUFINO (acute kidney injury) N17.9 Urinary retention R33.9 Cystitis N30.90 Acute diverticulitis K57.92 Elevated troponin R77.8 HTN (hypertension) I10 Systolic heart failure I50.20 Severe obstructive sleep apnea G47.33
[2022-04-20] MEDS: SIMVASTATIN 40 MG TAB PO SCH (22:12)
[2022-04-20] MEDS: TAMSULOSIN HCL 0.4 MG CAP PO SCH (22:12)
[2022-04-20] MEDS: FINASTERIDE 5 MG TAB PO SCH (22:12)
[2022-04-20] MEDS: MELATONIN 3 MG TAB PO PRN (22:13)
[2022-04-21] MEDS: metroNIDAZOLE 500 MG TAB PO SCH ×3 (06:17→22:12)
[2022-04-21 07:47] LABS: Hematocrit (blood only) 35.2 % (40.1-51.0); Hemoglobin 11.8 g/dl (14.0-18.0); Mean Corpuscular Hemoglobin 30.6 pg (25.0-34.0); Mean Corpuscular Hgb Conc 33.5 g/dL (32.0-36.0); Mean Corpuscular Volume 91.4 fL (80.0-100.0); Mean Platelet Volume 8.8 fL (9.4-12.4); Platelet Count 412 K/uL (130-400); RDW Coefficient of Variation 14.3 % (11.5-14.5); RDW Standard Deviation 47.6 fL (36.4-46.3); Red Blood Count 3.85 M/uL (4.63-6.08); White Blood Count 12.64 K/ul (4.8-10.8)
[2022-04-21 08:20] LABS: BUN Creatinine Ratio 21.8 (10-20); Calcium 8.3 mg/dl (8.5-10.1); Creatinine Clr Calc Pharmacy 50.3 ml/min; Est GFR (Non-African American) 56.9 ml/min; Potassium 4.1 mmol/L (3.5-5.1)
[2022-04-21] MEDS: HEPARIN SOD 5,000 UNIT/0.5 ML VIAL SQ SCH ×2 (08:50→15:36)
[2022-04-21] MEDS: METOPROLOL SUCC 25MG EXT REL TAB PO SCH ×2 (08:51→22:09)
[2022-04-21] MEDS: DOCUSATE SODIUM 100 MG CAP PO SCH ×2 (08:51→22:05)
[2022-04-21] MEDS: ASPIRIN 81 MG ECTAB PO SCH (08:51)
[2022-04-21] MEDS: VALSARTAN/SACUBITRIL 51/49 MG TAB PO SCH ×2 (08:51→22:11)
[2022-04-21] MEDS: levoFLOXacin 750 MG TAB PO SCH (13:43)
[2022-04-21] MEDS: FINASTERIDE 5 MG TAB PO SCH (22:08)
[2022-04-21] MEDS: TAMSULOSIN HCL 0.4 MG CAP PO SCH (22:10)
[2022-04-21] MEDS: SIMVASTATIN 40 MG TAB PO SCH (22:10)
--- NOTE | 2022-04-21 23:54 | Hospitalist Progress Note ---
Date of Service April 21, 2022 Assessment & Plan (1) Fall: Plan: Presented with increased frequency of falls. Family is in the process of working with [facility] for placement prior to admission. Falls could have been precipitated by significant urinary retention, UTI, acute kidney injury, and sigmoid diverticulitis-treatment for all as below Only had one 3 beat run of V. tach on telemetry and his EF has actually improved from previous up to 40-45% so doubtful that he had ventricular arrhythmia causing falls No significant valvular disease on echocardiogram TSH normal. With mild normocytic anemia No significant abnormalities with blood pressures but will check orthostatics as he did mention being lightheaded at times Check B12 in the morning Pending placement in outside facility (2) RUFINO (acute kidney injury): Plan: Resolved, secondary to severe urinary retention likely from enlarged prostate and bladder stone, UTI Maintain Wade catheter Have since restarted Entresto Can continue to hold furosemide Mondays and Fridays and just give as needed for edema or weight gain (3) Urinary retention: Plan: Given UTI, left hydronephrosis, bladder scan checked and found to have postvoid residual of almost 1300 mL. Wade catheter placed on 04/17 for an immediate 1800 mL of urine Patient really had minimal symptoms with this He reports he sometimes forgets to take his Rapaflo at home He has a previous history of greenlight laser procedure on the prostate many years ago in [place] Appreciate urology consultation Maintain Wade catheter for 7-10 days and follow-up with urology for cystoscopy and possible procedure on prostate in the future if fails trial of void Continue tamsulosin while here as Rapaflo not available. Continue finasteride Will need PSA as an outpatient (4) Cystitis: Plan: Follow-up CT demonstrates multiple stones as well as concern for bladder stone and left ureteral thickening. Urology was consulted. Patient required Wade catheter placement for urinary retention of 1800 mL. He will keep the Wade catheter in place for the next 10 to 14 days until he is able to follow-up with urology. Otherwise, he is passing clear angelica urine and feeling well. No fevers, leukocytosis now resolved Continue Levaquin for appropriate coverage of Enterococcus with ascending infection (5) Acute diverticulitis: Plan: As noted on CT imaging performed for hydronephrosis seen on renal ultrasound. He really did not have symptoms at all of this i.e. no abdominal pain Continue Levaquin and Flagyl to finish out a 10-day course Diet has been advanced to low fiber and he is tolerating this well Recommend colonoscopy in 6 to 8 weeks (6) Elevated troponin: Plan: Myocardial demand ischemia in the setting of known cardiomyopathy and stress of infection. Troponin trended downward Echo demonstrates EF of 40 to 45% with improvement in previously seen poor wall motion abnormality. cardiology consultation appreciated-no further evaluation needed (7) HTN (hypertension): Plan: Blood pressures are stable Continue metoprolol, Entresto (8) Systolic heart failure: Plan: With chronic systolic heart failure, previous EF 30-35% in 11/2020 with no cardiology follow-up since that time Has been maintained on guideline directed medical therapy with Entresto and Toprol-XL Fortunately, EF is now improved here on repeat echocardiogram to 40-45% No ICD indicated at this point He is euvolemic, no diuretics needed except as needed Follow-up with cardiology as an outpatient Consider addition of SGLT2 inhibitor as an outpatient Appreciate cardiology consultation (9) Severe obstructive sleep apnea: Plan: Continue to encourage CPAP use but he is refusing Plan DVT prophylaxis Heparin SQ Disposition-much improved. Medically stable for discharge but hopeful for early next week acceptance pending at [facility] Admission and Anticipated Discharge Date Admission Date: April 14, 2022 Subjective Patient reports improvement in his abdominal discomfort No fevers or chills today Physical Exam Physical Exam: Constitutional: no acute distress, Vitals as above. HEENT: No scleral injection or discharge. . Clear oropharynx without exudate. Neck: Supple without lymphadenopathy or thyromegaly. Trachea midline. Lungs: Clear to auscultation bilaterally with good effort. Cardiac: Normal rhythm. No murmurs.No extremity edema. 2+ distal peripheral pulses. Abdomen:Bowel sounds present. Soft and nondistended. . No guarding MSK: No cyanosis or clubbing. Extremities motor strength 5/5. Skin: No rashes, warm, dry. Neurologic: Grossly intact cranial nerves. Results & Data Results & Data ([facility]) Vital Signs (Past 12 Hours) Vital Signs Temp Pulse Pulse Resp BP Pulse Ox O2 Del Method 04/21/22 18:48 37.0 C 73 19 107/68 92 Room Air 04/21/22 15:17 36.8 C 63 17 103/53 L 97 Room Air 04/21/22 14:54 72 PG Care Time/CCT Total # of Minutes Spent Total Time Spent with Patient: Total time spent is greater than 50% in coordination of care (as documented) at patient's floor/unit and/or counseling patient: Coding Level of Care Code 63363 Subseq Hosp Care Lvl 2 Diagnoses Fall W19.XXXA RUFINO (acute kidney injury) N17.9 Urinary retention R33.9 Cystitis N30.90 Acute diverticulitis K57.92 Elevated troponin R77.8 HTN (hypertension) I10 Systolic heart failure I50.20 Severe obstructive sleep apnea G47.33
[2022-04-22] MEDS: HEPARIN SOD 5,000 UNIT/0.5 ML VIAL SQ SCH ×4 (00:04→23:01)
[2022-04-22] MEDS: MELATONIN 3 MG TAB PO PRN ×2 (00:07→22:28)
[2022-04-22] MEDS: metroNIDAZOLE 500 MG TAB PO SCH ×3 (06:06→22:28)
[2022-04-22] MEDS ORDERED: ACETAMINOPHEN 500 MG TAB PO PRN (06:20)
[2022-04-22 08:34] LABS: Hematocrit (blood only) 37.6 % (40.1-51.0); Hemoglobin 12.5 g/dl (14.0-18.0); Mean Corpuscular Hemoglobin 30.3 pg (25.0-34.0); Mean Corpuscular Hgb Conc 33.2 g/dL (32.0-36.0); Mean Corpuscular Volume 91.3 fL (80.0-100.0); Mean Platelet Volume 8.6 fL (9.4-12.4); Platelet Count 396 K/uL (130-400); RDW Coefficient of Variation 14.5 % (11.5-14.5); RDW Standard Deviation 48.1 fL (36.4-46.3); Red Blood Count 4.12 M/uL (4.63-6.08); White Blood Count 11.58 K/ul (4.8-10.8)
[2022-04-22 08:58] LABS: BUN Creatinine Ratio 22.7 (10-20); Calcium 8.6 mg/dl (8.5-10.1); Creatinine Clr Calc Pharmacy 50.3 ml/min; Est GFR (Non-African American) 56.9 ml/min; Potassium 4.2 mmol/L (3.5-5.1)
[2022-04-22] MEDS: VALSARTAN/SACUBITRIL 51/49 MG TAB PO SCH ×2 (09:23→22:28)
[2022-04-22] MEDS: DOCUSATE SODIUM 100 MG CAP PO SCH ×2 (09:23→22:24)
[2022-04-22] MEDS: METOPROLOL SUCC 25MG EXT REL TAB PO SCH ×2 (09:24→22:25)
[2022-04-22] MEDS: ASPIRIN 81 MG ECTAB PO SCH (09:24)
--- NOTE | 2022-04-22 13:59 | Hospitalist Progress Note ---
Date of Service April 22, 2022 Assessment & Plan (1) Fall: Plan: Presented with increased frequency of falls. Family is in the process of working with [facility] for placement prior to admission. Falls could have been precipitated by significant urinary retention, UTI, acute kidney injury, and sigmoid diverticulitis-treatment for all as below No significant valvular disease on echocardiogram TSH normal. 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 and again had another episode of 10 beats at noon Patient wants to ensure that this is not ischemic before he is placed on [facility] We will check cardiac enzymes-recent echo did not show any structural a bnormalities Will obtain cardiac input and consider placement over the next 1 to 2 days [facility] also required patient to have COVID booster prior to him being transferred there (2) RUFINO (acute kidney injury): Plan: Resolved, secondary to severe urinary retention likely from enlarged prostate and bladder stone, UTI Maintain Wade catheter Have since restarted Entresto Can continue to hold furosemide Mondays and Fridays and just give as needed for edema or weight gain (3) Urinary retention: Plan: Given UTI, left hydronephrosis, bladder scan checked and found to have postvoid residual of almost 1300 mL. Wade catheter placed on 04/17 for an immediate 1800 mL of urine Patient really had minimal symptoms with this He reports he sometimes forgets to take his Rapaflo at home He has a previous history of greenlight laser procedure on the prostate many years ago in [place] Appreciate urology consultation Maintain Wade catheter for 7-10 days and follow-up with urology for cystoscopy and possible procedure on prostate in the future if fails trial of void Continue tamsulosin while here as Rapaflo not available. Continue finasteride Will need PSA as an outpatient (4) Cystitis: Plan: Follow-up CT demonstrates multiple stones as well as concern for bladder stone and left ureteral thickening. Urology was consulted. Patient required Wade catheter placement for urinary retention of 1800 mL. He will keep the Wade catheter in place for the next 10 to 14 days until he is able to follow-up with urology. Otherwise, he is passing clear angelica urine and feeling well. No fevers, leukocytosis now resolved Continue Levaquin for appropriate coverage of Enterococcus with ascending infection (5) Acute diverticulitis: Plan: As noted on CT imaging performed for hydronephrosis seen on renal ultrasound. He really did not have symptoms at all of this i.e. no abdominal pain Continue Levaquin and Flagyl to finish out a 10-day course Diet has been advanced to low fiber and he is tolerating this well Recommend colonoscopy in 6 to 8 weeks (6) Elevated troponin: Plan: Myocardial demand ischemia in the setting of known cardiomyopathy and stress of infection. Troponin trended downward Echo demonstrates EF of 40 to 45% with improvement in previously seen poor wall motion abnormality. cardiology consultation appreciated-no further evaluation needed (7) HTN (hypertension): Plan: Blood pressures are stable Continue metoprolol, Entresto (8) Systolic heart failure: Plan: With chronic systolic heart failure, previous EF 30-35% in 11/2020 with no cardiology follow-up since that time Has been maintained on guideline directed medical therapy with Entresto and Toprol-XL Fortunately, EF is now improved here on repeat echocardiogram to 40-45% No ICD indicated at this point He is euvolemic, no diuretics needed except as needed Follow-up with cardiology as an outpatient Consider addition of SGLT2 inhibitor as an outpatient Appreciate cardiology consultation (9) Severe obstructive sleep apnea: Plan: Continue to encourage CPAP use but he is refusing Plan DVT prophylaxis Heparin SQ Disposition-much improved. Medically stable for discharge but hopeful for early next week acceptance pending at [facility] Admission and Anticipated Discharge Date Admission Date: April 14, 2022 Subjective Patient had a run of V. tach 10 beats this And also had a short run of nonsustained V. tach in early a.m. No chest pain or shortness of breath Patient had a bed available today and [facility] but discussed with patient and Will rule out any acute ischemia arrange for placement in 1 to 2 days Physical Exam Physical Exam: Constitutional: no acute distress, Vitals as above. HEENT: No scleral injection or discharge. . Clear oropharynx without exudate. Neck: Supple without lymphadenopathy or thyromegaly. Trachea midline. Lungs: Clear to auscultation bilaterally with good effort. Cardiac: Normal rhythm. No murmurs.No extremity edema. 2+ distal peripheral pulses. Abdomen:Bowel sounds present. Soft and nondistended. . No guarding MSK: No cyanosis or clubbing. Skin: No rashes, warm, dry. Neurologic: Grossly intact cranial nerves. Results & Data Results & Data ([facility]) Vital Signs (Past 12 Hours) Vital Signs Temp Pulse Pulse Resp BP Pulse Ox O2 Del Method 04/22/22 11:21 36.9 C 56 L 20 113/63 95 Room Air 04/22/22 07:26 36.5 C 59 L 18 118/69 96 Room Air 04/22/22 07:41 56 L 04/22/22 02:29 64 PG Care Time/CCT Total # of Minutes Spent Total Time Spent with Patient: Total time spent is greater than 50% in coordination of care (as documented) at patient's floor/unit and/or counseling patient: Coding Level of Care Code 90176 Subseq Hosp Care Lvl 2 Diagnoses Fall W19.XXXA RUFINO (acute kidney injury) N17.9 Urinary retention R33.9 Cystitis N30.90 Acute diverticulitis K57.92 Elevated troponin R77.8 HTN (hypertension) I10 Systolic heart failure I50.20 Severe obstructive sleep apnea G47.33
[2022-04-22] MEDS ORDERED: COVID19 BIVALENT Vaccine (Booster ONLY--Pfizer) 30mcg/0.3mL IM ONE (15:00)
[2022-04-22] MEDS: levoFLOXacin 750 MG TAB PO SCH (16:04)
[2022-04-22] MEDS: FINASTERIDE 5 MG TAB PO SCH (22:25)
[2022-04-22] MEDS: SIMVASTATIN 40 MG TAB PO SCH (22:27)
[2022-04-22] MEDS: TAMSULOSIN HCL 0.4 MG CAP PO SCH (22:28)
[2022-04-23] MEDS: metroNIDAZOLE 500 MG TAB PO SCH ×3 (06:20→22:01)
[2022-04-23 07:17] LABS: Hematocrit (blood only) 35.2 % (40.1-51.0); Hemoglobin 11.7 g/dl (14.0-18.0); Mean Corpuscular Hemoglobin 30.6 pg (25.0-34.0); Mean Corpuscular Hgb Conc 33.2 g/dL (32.0-36.0); Mean Corpuscular Volume 92.1 fL (80.0-100.0); Mean Platelet Volume 8.7 fL (9.4-12.4); Platelet Count 376 K/uL (130-400); RDW Coefficient of Variation 14.5 % (11.5-14.5); RDW Standard Deviation 48.7 fL (36.4-46.3); Red Blood Count 3.82 M/uL (4.63-6.08); White Blood Count 11.63 K/ul (4.8-10.8)
[2022-04-23 07:34] LABS: BUN Creatinine Ratio 20.7 (10-20); Calcium 8.3 mg/dl (8.5-10.1); Creatinine Clr Calc Pharmacy 49.4 ml/min; Est GFR (African American) 64.7 ml/min; Est GFR (Non-African American) 55.8 ml/min; Potassium 3.9 mmol/L (3.5-5.1)
[2022-04-23] MEDS: METOPROLOL SUCC 25MG EXT REL TAB PO SCH ×2 (08:37→22:00)
[2022-04-23] MEDS: HEPARIN SOD 5,000 UNIT/0.5 ML VIAL SQ SCH ×3 (08:37→22:04)
[2022-04-23] MEDS: DOCUSATE SODIUM 100 MG CAP PO SCH ×2 (08:37→21:59)
[2022-04-23] MEDS: ASPIRIN 81 MG ECTAB PO SCH (08:37)
--- NOTE | 2022-04-23 09:26 | Cardiology Progress Note ---
Date of Service April 23, 2022 Assessment & Plan Admission and Anticipated Discharge Date Admission Date: April 14, 2022 Subjective Patient denies any chest pain or chest pressure.He denies any shortness of breath. He denies any lightheadedness dizziness presyncope syncope. He is unaware of any palpitations or fluttering or feeling his heart racing. He was admitted due to multiple falls secondary to gait instability and weakness in his legs. He denies a history of syncope or loss of consciousness leading to any of these episodes. Additionally he denies any palpitations or fluttering prior to these episodes. He is emotionally distraught as his is currently in a memory unit due to her history of multiple head traumas Results & Data ([facility]) Vital Signs (Past 12 Hours) Vital Signs Temp Pulse Pulse Resp BP Pulse Ox O2 Del Method 04/23/22 07:52 36.9 C 62 20 115/70 93 Room Air 04/23/22 07:21 63 04/23/22 03:35 36.8 C 57 L 18 105/60 93 Room Air 04/23/22 01:05 60 04/22/22 22:36 36.7 C 61 18 131/70 95 Room Air . He is awake alert and oriented x3 he is in no acute distress. He does look disheveled HEENT: Mildly reduced carotid upstrokes no evidence of carotid bruits Lungs: Clear to auscultation bilaterally no rales rhonchi or wheezing Heart: Regular rate and rhythm without any appreciable ectopy Abdomen: Soft nontender distended positive bowel sounds Extremities: No clubbing cyanosis or edema IMPRESSIONS: 1. Presumed nonischemic cardiomyopathy with an improvement in his ejection fraction from November 2020 (35%) now with mild left ventricular dysfunction in the range of 40 to 45%. 2. Mild global hypokinesis 3. History of negative cardiac catheterization in 2014 4. 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 History of short runs of AIVR He is on appropriate dose of beta-blockers as there is no room to increase it further given his relative bradycardia. He is on moderate dose Entresto again with no room to increase it due to his blood pressure. If you look at the monitor yesterday he had slow VT (AIVR). The rate is slow and therefore the risk of a malignant arrhythmia is relatively small. Additionally this rate would not contribute to lightheadedness dizziness or syncopal episodes. I would keep his potassium greater than 4 and his magnesium greater than 2. The only option would be to consider suppressing his PVCs with something like amiodarone given his history of heart failure as well as his cardiomyopathy. The challenge with amiodarone is that it will likely will induce additional bradycardia and there is a risk that it would lead to worsening gait instability and balance issues as it can cause a peripheral neuropathy. Therefore I think the risk of amiodarone outweighs the benefit. From my standpoint I would not change any of his medications. he will need cardiology follow-up after he leaves [facility] and we will be happy to see him in the office again. From our standpoint there is no reason he cannot go to [facility] when a bed is available.
[2022-04-23] MEDS: VALSARTAN/SACUBITRIL 51/49 MG TAB PO SCH ×2 (09:29→21:59)
[2022-04-23] MEDS: LINEZOLID 600 MG TAB PO SCH ×2 (11:26→21:59)
[2022-04-23] MEDS: levoFLOXacin 750 MG TAB PO SCH (15:37)
--- NOTE | 2022-04-23 15:51 | Magnetic Resonance Report ---
MR brain wo con CLINICAL HISTORY: vertigo, ataxia, falls; eval CVA TECHNIQUE: Multiplanar and multisequence MR images of the brain were obtained without intravenous con trast. Comparison: Comparison is made to CT head 04/14/2022 FINDINGS: Exam is limited by patient motion. Punctate restricted diffusion is seen in left supraventricular whi te matter. Foci of T2 and FLAIR hyperintensity are noted in the paraventricular areas consistent with chronic small vessel ischemic disease. Ex vacuo ventriculomegaly and sulcal enlargement is noted com patible with diffuse encephalomalacia. No mass is seen. There is no mass effect or midline shift. The re is no evidence of acute intraparenchymal hemorrhage. No extra axial fluid collections are seen. Th e corpus callosum, pituitary gland, and cerebellar tonsils appear grossly unremarkable. Flow voids of the major intracranial arterial vessels are identified. The imaged portions of the para nasal sinuses, mastoid air cells, and orbits are unremarkable. IMPRESSION: Punctate restricted diffusion is seen in the left supraventricular white matter with likely associate d edema. This may possibly represent a tiny infarct. ACT 112: Negative or not required by law. Electronically signed by: Arpan Low M.D. 04/23/2022 3:50 PM
--- NOTE | 2022-04-23 20:18 | Hospitalist Progress Note ---
Date of Service April 23, 2022 Assessment & Plan (1) Vertigo: Plan: in light of recent ataxia, falls, and now new-onset vertigo will obtain MRI brain - r/o CVA if negative then the vertigo is likely peripheral (ie - inner ear) antivert prn consider PT vestibular eval (2) Weakness: Plan: multifactorial - UTI, diverticulitis, etc treat individual components (3) RUFINO (acute kidney injury): Plan: resolved Creatinine remains normal peak Cr 1.8 (4) Elevated troponin: Plan: likely myocardial demand ischemia in setting of UTI, falls, etc no evidence ACS (5) Fall: Plan: see #1 above (6) Hypokalemia: Plan: Replaced Resolved (7) HTN (hypertension): Plan: Controlled Cont metoprolol Cont Entresto Flomax for BPH will also provide BP control (8) Nocturnal hypoxemia: Plan: CPAP (9) Severe obstructive sleep apnea: Plan: CPAP (10) Acute diverticulitis: Plan: sigmoid diverticulitis seen on admission CT on levaquin/flagyl day #7 today of IV/PO abx (1st day of Rx -- 04/17/22) clinically resolved (11) Enterococcus UTI: Plan: unfortunately levaquin and cipro are not terribly effective against enterococcus he continues with mild leukocytosis thus - add zyvox 600mg BID (12) Systolic heart failure: Plan: compensated cont metoprolol succinate BID cont Entresto appreciate Dr Noyola's consultation/recs (13) BPH (benign prostatic hyperplasia): Plan: bolivar in place cont finasteride cont flomax appreciate urology consult and recs treat UTI (14) Kidney stones: Plan: no Rx needed at this time Plan DVT proph - heparin 5000 TID awaiting placement at [facility] for rehab Admission and Anticipated Discharge Date Admission Date: April 14, 2022 Subjective patient reports 10 sec episodes of vertigo with moving in bed, rolling over, etc started "about when I came in" [to the hospital] denies visual field cuts just prior to admission he felt like he was "going to fall backwards" and was very unsteady no tremors no focal motor weakness he otherwise is eating well no dyspnea no abd pain bolivar remains in place draining clear urine tele overnight - few runs of ?slow [place] Review of Systems Review of Systems: gen - no fevers or chills cv - no chest pain pulm - no cough GI - no nausea or emesis or pain with eating food; robust appetite Physical Exam Physical Exam: gen - NAD, pleasant eyes - PERRL; no nystagmus neck - no JVD heart - RRR, s1 s2 lungs - CTA b/l abd - soft NT ND BS+ ext - mild edema over left foot, none on right, pulses 2+ b/l neuro - no ataxia finger/nose/finger maneuver; strength 5/5 x 4 exts; DTRs 2+ b/l; no facial droop; gait not tested Results & Data Results & Data ([facility]) Vital Signs (Past 12 Hours) Vital Signs Temp Pulse Pulse Resp BP Pulse Ox O2 Del Method 04/23/22 20:00 37 C 88 20 136/67 93 Room Air 04/23/22 19:00 36.8 C 59 L 20 109/66 95 Room Air 04/23/22 15:49 36.5 C 83 18 102/63 94 Room Air 04/23/22 15:29 62 04/23/22 11:18 36.6 C 61 18 97/58 L 95 Room Air Laboratory Results Laboratory Results - last 24 hr 04/22/22 04/23/22 04/23/22 22:44 06:37 06:37 WBC 11.63 H RBC 3.82 L Hgb 11.7 L Hct 35.2 L MCV 92.1 MCH 30.6 MCHC 33.2 RDW Std Deviation 48.7 H RDW Coeff of Inderjit 14.5 Plt Count 376 MPV 8.7 L Sodium Potassium Chloride Carbon Dioxide Anion Gap BUN Creatinine Est Cr Clr Drug Dosing Est GFR ( Amer) Est GFR (Non-Af Amer) BUN/Creatinine Ratio Glucose Calcium Troponin I High Sens 19.4 20.4 H 04/23/22 06:37 WBC RBC Hgb Hct MCV MCH MCHC RDW Std Deviation RDW Coeff of Inderjit Plt Count MPV Sodium 137 Potassium 3.9 Chloride 107 Carbon Dioxide 24 Anion Gap 6 BUN 25 H Creatinine 1.21 Est Cr Clr Drug Dosing 49.4 Est GFR ( Amer) 64.7 Est GFR (Non-Af Amer) 55.8 BUN/Creatinine Ratio 20.7 H Glucose 95 Calcium 8.3 L Troponin I High Sens PG Care Time/CCT Total # of Minutes Spent Total Time Spent with Patient: Total time spent is greater than 50% in coordination of care (as documented) at patient's floor/unit and/or counseling patient: Coding Level of Care Code 00691 SUB INP/OBS CARE 3/50MIN Diagnoses Vertigo R42 Weakness R53.1 RUFINO (acute kidney injury) N17.9 Elevated troponin R77.8 Fall W19.XXXA Hypokalemia E87.6 HTN (hypertension) I10 Nocturnal hypoxemia G47.34 Severe obstructive sleep apnea G47.33 Acute diverticulitis K57.92 Enterococcus UTI N39.0; B95.2 Systolic heart failure I50.20 BPH (benign prostatic hyperplasia) N40.0 Kidney stones N20.0
[2022-04-23] MEDS: TAMSULOSIN HCL 0.4 MG CAP PO SCH (22:00)
[2022-04-23] MEDS: FINASTERIDE 5 MG TAB PO SCH (22:00)
[2022-04-24] MEDS: metroNIDAZOLE 500 MG TAB PO SCH ×2 (06:04→15:36)
[2022-04-24 07:04] LABS: Creatinine Clr Calc Pharmacy 47.9 ml/min; Est GFR (African American) 62.2 ml/min; Est GFR (Non-African American) 53.7 ml/min
[2022-04-24] MEDS ORDERED: OPTIRAY 320 500ml IV ONE (08:35)
[2022-04-24] MEDS: DOCUSATE SODIUM 100 MG CAP PO SCH (09:30)
[2022-04-24] MEDS: METOPROLOL SUCC 25MG EXT REL TAB PO SCH (09:30)
[2022-04-24] MEDS: LINEZOLID 600 MG TAB PO SCH (09:30)
[2022-04-24] MEDS: VALSARTAN/SACUBITRIL 51/49 MG TAB PO SCH (09:30)
[2022-04-24] MEDS: ASPIRIN 81 MG ECTAB PO SCH (09:31)
[2022-04-24] MEDS: HEPARIN SOD 5,000 UNIT/0.5 ML VIAL SQ SCH (09:32)
[2022-04-24] MEDS ORDERED: MECLIZINE 12.5 MG TAB PO PRN (09:35)
--- NOTE | 2022-04-24 09:52 | CT Scan Report ---
CT ANGIOGRAM OF THE NECK CLINICAL HISTORY: Stroke. COMPARISON STUDY: No priors. TECHNIQUE: Following the IV administration of 120 of Optiray 320, CT angiogram of the neck was perfor med from the aortic arch to the skull base. Images are reviewed in the axial, sagittal, and coronal p lanes. 3-D MIPS images are created and assessed. IV contrast was administered without complication. A ll measurements were calculated based on NASCET criteria. A dose lowering technique was utilized adh ering to the principles of ALARA. FINDINGS: Thoracic aorta: There is mild atherosclerotic calcification of the thoracic aorta. Visualized portion s of the thoracic aorta are normal in caliber. The aortic arch demonstrates 4-vessel variant anatomy. The left vertebral artery arises directly from the thoracic aorta. Right carotid arterial system: The right common carotid artery is widely patent, as are the right int ernal and external carotid arteries. Calcified plaque is noted in the carotid bulb. Left carotid arterial system: The left common carotid artery is widely patent, as are the left internal carver al and external carotid arteries. Advanced atherosclerotic plaque is seen in the carotid bulb. Vertebral arteries: The vertebral arteries are widely patent bilaterally noting right-sided dominance . Subclavian arteries: Widely patent bilaterally. Intracranial vasculature: The visualized intracranial vessels at the skull base appear patent. Jugular veins: Widely patent bilaterally. Brain parenchyma: The visualized brain parenchyma the skull base is within normal limits. Lung apices: Partially visualized upper lobe lung parenchyma appears clear. Soft tissues: The visualized pharyngeal soft tissues are normal in appearance noting angiographic pha se technique. The oropharyngeal airway appears widely patent. The thyroid gland is normal in size and heterogeneous in attenuation. Tiny calcified sialoliths are noted in the right parotid gland. The sa livary glands are otherwise normal in appearance. No cervical lymphadenopathy is seen. Skeletal structures: The skeletal structures are osteopenic. The visualized calvarium at the skull ba se appears intact. The imaged cervical spine is maintained noting multilevel spondylosis. No lytic or blastic lesion is seen. Sinuses and mastoids: The visualized paranasal sinuses are clear. The mastoid air cells are well pneu matized. Cerumen is seen within the external auditory canals. IMPRESSION: Unremarkable CT angiogram of the neck. ACT 112: Negative or not required by law. Electronically signed by: Horacio Szymanski M.D. 04/24/2022 9:49 AM
[2022-04-24] MEDS ORDERED: CLOPIDOGREL BISULFATE 75 MG TAB PO ONE (10:30)
--- NOTE | 2022-04-24 11:12 | CT Scan Report ---
CTA ANGIOGRAPHY OF THE HEAD CLINICAL HISTORY: Left-sided stroke. COMPARISON STUDY: MRI of the brain April 23, 2022. Head CT April 14, 2022. TECHNIQUE: Helical axial images of the head were obtained following uneventful intravenous administr ation of 120 cc of Optiray. Sagittal and coronal reconstructions were viewed as well as maximal inten sity projections on an independent 3-D workstation. Automated exposure control was utilized for the study. A dose lowering technique was utilized adhering to the principles of ALARA. CT DOSE: 679.33 mGy.cm FINDINGS: Ventricular system is normal. Basal cisterns are patent. There are no extra-axial collectio ns. No intracranial hemorrhage is identified on this contrast enhanced exam. There is mild plaque wit hin the bilateral cavernous carotids without stenosis. No central vessel occlusion is present. Right vertebral artery is dominant. The left vertebral artery is diminutive on a congenital basis. There is moderate plaque within the proximal intracranial portion of the right vertebral artery which results in mild stenosis. No intracranial aneurysm or dissection is noted. IMPRESSION: No central vessel occlusion. No intracranial aneurysm. ACT 112: Negative or not required by law. Electronically signed by: Doron Kim M.D. 04/24/2022 11:10 AM
[2022-04-24 14:22] LABS: Chol HDL Ratio 2.6 (0-5)
--- NOTE | 2022-04-24 15:32 | Discharge Summary ---
Date of Service date of admission - April 14, 2022 date of discharge - April 24, 2022 Admission HPI Per Admitting Provider Festus is an 82 year old male with a PMH significant for HFrEF (LVEF of 30- 35%, mildly dilated left ventricle, mild-mod mitral regurgitation, mild tricuspid regurgitation as of 12/07/20), Dementia, HTN, PJ with nocturnal hypoxemia, CAD, hyperlipidemia, BPH, who presented to the [facility] ED on 04/14/22 initially for medical clearance prior to going back to [facility]. In the ED the patient was found to be afebrile, hemodynamically stable, and stable on RA. Labs were remarkable for a leukocytosis of 13 with left shift of 10.64, platelet count of 411, Cr of 1.84 (baseline appears to be 0.9-1.0), potassium of 3.1, glucose of 159, total bili of 1.2 with AST of 48 otherwise stable liver function, initial high sensitivity troponin of 52, TSH of 0.570. Prior to admission, xrays of the right hip were ordered and a CT of the head was ordered for a complete workup but neither had been obtained prior to admission. Prior to admission the patient was given 1L NSS bolus and was also given 40 meq of PO KCL. Unfortunately, due to very high hospital and ED census the patient had to be evaluated in the ED waiting room. He was found to be sitting comfortably in a wheelchair in no acute distress. Per the ED intake report, the patient was brought in earlier today via EMS to be evaluated for placement to [facility] assisted living facility due to multiple falls and inability to care for himself due to a history of worsening dementia. Reportedly the patient's Daughter (Khloe Frost [phone]) is up from [place] due to the patient's issues and has been working with [facility], who has reportedly already accepted the patient to their facility, but he needed to be medically cleared prior to being officially accepted. I attempted to call Khloe multiple times but unfortunately she never picked up. I attempted to obtain a history from the patient but am unsure how reliable of a historian he is as he was forgetful mu ltiple times during my exam and needed to be redirected. He states that he came to the ED as he has been falling frequently with his last fall approximately 2-3 days ago. He states that his last fall occurred when he fell out of bed, landing on his right side. He does not think that he hit his head or lost consciousness and denies being on blood thinners. He states that he has had some pain in his right shoulder and hip since the fall but otherwise no other complaints. He denies any chest pain, SOB, abdominal pain, nausea, vomiting, diarrhea, dysuria, hematuria, and melena. The patient does not know his medications so I was unable to confirm his med rec at the time of the admission. I spoke to him regarding code status, he wishes to be a Full Code. There is a previous DNR/DNI documented on 12/06/20 but until we can confirm with family we will keep him a Full Code for now. Principal Diagnosis 1. falls - likely multifactorial 2. weakness - multifactorial 3. enterococcal UTI 4. sigmoid diverticulitis 5. kidney stones 6. bladder stone 7. urinary retention s/p bolivar placement 8. severe BPH 9. dementia 10. tiny left-sided cerebral stroke, etiology uncertain 11. h/o hyperlipidemia 12. PJ 13. HTN 14. chronic systolic CHF 15. acute kidney injury - resolved 16. acute vertigo - likely peripheral (inner ear) etiology - improved 17. nonsustained ventricular tachycardia Discharge Exam gen - NAD, pleasant eyes - PERRL; no nystagmus neck - no JVD heart - RRR, s1 s2 lungs - CTA b/l abd - soft NT ND BS+ ext - mild edema over left foot, none on right, pulses 2+ b/l neuro - no ataxia finger/nose/finger maneuver; strength 5/5 x 4 exts; DTRs 2+ b/l; no facial droop; gait not tested Discharge Data Allergies Allergy/AdvReac Type Severity Reaction Status Date / Time Penicillins Allergy Severe Dizziness Verified 04/14/22 23:47 & SHORTNESS OF BREATH Consultations [facility] PT, OT, Speech Therapy Procedures Performed Echocardiogram - * EF 40-45% * moderate LVH * mild global hypokinesis of the LV * moderate aortic regurgitation * mild-moderate mitral regurgitation * RV systolic pressure is normal Ordered Studies Hip/Pelvis X-Ray 04/14/22 18:22 SINGLE VIEW PELVIS; 2 VIEWS RIGHT HIP CLINICAL HISTORY: Right hip pain. FINDINGS: An AP view of the pelvis with AP and frog leg views of the right hip are obtained. No prior studies are available for comparison at the time of dictation. The skeletal structures are osteopenic. There is no radiographic evidence of acute fracture involving the hips or bony pelvis. Mild arthritic change and joint space narrowing is seen in the hips. Degenerative sclerosis is noted in the sacroiliac joints. The overlying soft tissues are within normal limits. There is atherosclerotic calcification of the femoral arteries. Lumbosacral spondylosis is partially visualized. Indeterminant calcifications project over the sacrum. IMPRESSION: No acute bony abnormality is identified. Electronically signed by: Horacio Szymanski M.D. 04/14/2022 8:[address] 04/14/22 18:28 CT SCAN OF THE BRAIN WITHOUT IV CONTRAST CLINICAL HISTORY: Fall. COMPARISON STUDY: No priors. TECHNIQUE: Unenhanced axial CT scan of the brain is performed from the vertex to the skull base. A dose lowering technique was utilized adhering to the principles of ALARA. CT DOSE: 614.27 mGy.cm FINDINGS: Brain parenchyma: There is age-related involutional change noting [id number] subcortical and periventricular microangiopathic disease. There is no hemorrhage, mass effect, or evidence of acute territorial ischemia by CT criteria. Beckman-white matter differentiation is preserved. No extra-axial fluid collection is seen. Ventricles, sulci, cisterns: Prominent secondary to involutional change. Intracranial vasculature: There is atherosclerotic calcification of the cavernous carotid and vertebral arteries. Calvarium: The skeletal structures are osteopenic. No depressed calvarial fracture is identified. Sinuses and mastoids: Trace mucosal thickening is noted in the right maxillary antrum. The remaining paranasal sinuses are clear. The mastoid air cells are well pneumatized. Orbits: The bony orbits are grossly intact. There are bilateral ocular lens implants. IMPRESSION: There is no hemorrhage, mass effect, or evidence of acute territorial ischemia by CT criteria. ACT 112: Negative or not required by law. Electronically signed by: Horacio Szymanski M.D. 04/14/2022 7:13 PM Chest X-Ray 04/14/22 19:02 SINGLE VIEW CHEST CLINICAL HISTORY: Unspecified infection FINDINGS: An AP, portable, supine chest radiograph is compared to study dated 12/06/2020. The heart is enlarged. The pulmonary vasculature is noncontrast. Chronic interstitial thickening similar to previous. There is chronic elevation of right hemidiaphragm with bibasilar scarring/atelectasis. No airspace consolidation or large pleural effusion is identified. No pneumothorax is seen. The skeletal structures are osteopenic. The bony thorax is grossly intact. Arthritic change is noted in the shoulders. Superior subluxation of both humeral heads suggests chronic bilateral rotator cuff injury. IMPRESSION: Cardiomegaly with no acute cardiopulmonary abnormality identified. ACT 112: Negative or not required by law. Electronically signed by: Horacio Szymanski M.D. 04/14/2022 8:18 PM Renal Ultrasound 04/14/22 19:27 RENAL ULTRASOUND CLINICAL HISTORY: RUFINO, please monitor for obstruction/hydronephrosis COMPARISON STUDY: KUB October 27, 2019. TECHNIQUE: Sonography of the kidneys and the urinary bladder was performed. FINDINGS: The right kidney measures 11.7 x 5.9 x 6 cm and the left measures 12.7 x 5.6 x 6.3 cm. There is no right hydronephrosis. Mild to moderate left hydroureteronephrosis is noted. No ureteral calculus is identified although these may be occult by sonography. Numerous bilateral renal calculi are noted. The largest is a 1.2 cm left renal calculus. The bladder is distended and contains a large amount of debris with layering material. There is a suspected bladder calculus. The prostate is prominent and indents the base of the bladder. IMPRESSION: 1. Mild to moderate left hydroureteronephrosis. No ureteral calculi identified although these may be occult by sonography. 2. Numerous bilateral renal calculi. 3. Distended bladder which contains extensive layering material. This is nonspecific but may reflect clot and could be correlated with urinalysis. 4. Prominent prostate which indents the base of the bladder. 5. Suspected bladder calculus. ACT 112: Negative or not required by law. Electronically signed by: Doron Kim M.D. 04/15/2022 7:12 AM Shoulder X-Ray 04/14/22 19:29 RIGHT SHOULDER 3 VIEWS CLINICAL HISTORY: Fall with right shoulder pain. FINDINGS: 3 views of the right shoulder are obtained. No prior studies are available for comparison at the time of dictation. The skeletal structures are osteopenic. There is no radiographic evidence of fracture or dislocation. Degenerative change is noted at the glenohumeral and acromioclavicular joints. Superior subluxation of the humeral head suggests chronic rotator cuff injury. The overlying soft tissues are normal as visualized. The imaged right lung parenchyma appears clear. There is atherosclerotic calcification of the right carotid bulb. IMPRESSION: No acute bony abnormality is identified. Electronically signed by: Horacio Szymanski M.D. 04/14/2022 8:26 PM Abdomen/Pelvis CT 04/17/22 17:43 CT SCAN OF THE ABDOMEN AND PELVIS WITHOUT IV CONTRAST CLINICAL HISTORY: Left-sided hydronephrosis COMPARISON STUDY: Renal ultrasound dated 04/15/2022. KUB dated 10/27/2019. TECHNIQUE: CT scan of the abdomen and pelvis is performed from the lung bases to the proximal femora. Images are reviewed in the axial, sagittal, and coronal planes. IV contrast was not administered for this examination. A dose lowering technique was utilized adhering to the principles of ALARA. CT DOSE: 356.77 mGy.cm FINDINGS: Lung bases: The heart is mildly enlarged and without pericardial effusion. The lung bases are clear. A small hiatal hernia is noted. Liver: The unenhanced liver is normal in size, contour, and attenuation. There is no intrahepatic biliary ductal dilatation. Gallbladder: There are calcified gallstones without CT evidence of acute cholecystitis. Spleen: Normal in size and attenuation. Pancreas: Unremarkable. Adrenal glands: Unremarkable. Kidneys: The unenhanced kidneys demonstrate cortical atrophy. There is fullness of the left renal collecting system without hydronephrosis. There are numerous bilateral nonobstructing renal calculi which measure up to 2 cm. The left ureteral stone is seen. A 14 mm calcification in the right pelvis seen on image #332 may be located within or adjacent to the distal left ureter. There is no evidence of contour deforming renal mass lesion. Urothelial thickening is noted in the left renal pelvis and involving the left ureter. Abdominal vasculature: The abdominal aorta is normal in course and caliber. Bowel: There is mild to moderate diverticulosis of the left colon. There is wall thickening with pericolonic inflammation and trace fluid involving the proximal sigmoid consistent with acute diverticulitis. This is best seen on image #303. Mild to moderate fecal retention is noted in the colon. The appendix is well- visualized and normal. Peritoneum: There is no intraperitoneal free air or abdominal ascites. There is marked fatty atrophy of the paraspinous musculature. Lymphadenopathy: None. Pelvic viscera: The bladder is decompressed around a Bolivar catheter and not well evaluated. The wall appears thickened. An 11 mm bladder calculus is suggested on image #2 a 3-24. Gas is noted within the bladder lumen and there is pericystic inflammation. The prostate gland appears enlarged and heterogeneous. Skeletal structures: The skeletal structures are osteopenic. There is moderate lumbosacral spondylosis. There are age-indeterminate superior endplate compression deformities of T12 and L2. No lytic or blastic lesions are seen. IMPRESSION: 1. Acute diverticulitis of the sigmoid colon. 2. No intraperitoneal free air is identified and there is no organized fluid collection to suggest abscess seen on this unenhanced examination. 3. Extensive bilateral nephrolithiasis as above. No hydronephrosis is seen. 4. A 14 mm calcification in the right pelvis is located either within or adjacent to the right ureter. A ureteral stone is favored. There is no upstream ureteral dilatation, and this was also likely present on a 2020 radiograph. 5. The bladder is decompressed around a Bolivar catheter and not well assessed. 6. The bladder wall appears thickened and there is pericystic infiltration. Correlate with urinalysis. 7. A bladder calculus is identified. 8. Urothelial thickening is seen within the left renal pelvis and involving the left ureter. This should also be correlated with clinical findings and urinalysis. 9. There are age indeterminant superior endplate compression deformities of T12 and L2. Correlate for point tenderness. 10. Cholelithiasis. 12. Additional findings as above. ACT 112: Negative or not required by law. Electronically signed by: Horacio Szymanski M.D. 04/17/2022 7:36 PM Brain MRI 04/23/22 13:24 MR brain wo con CLINICAL HISTORY: vertigo, ataxia, falls; eval CVA TECHNIQUE: Multiplanar and multisequence MR images of the brain were obtained without intravenous contrast. Comparison: Comparison is made to CT head 04/14/2022 FINDINGS: Exam is limited by patient motion. Punctate restricted diffusion is seen in left supraventricular white matter. Foci of T2 and FLAIR hyperintensity are noted in the paraventricular areas consistent with chronic small vessel ischemic disease. Ex vacuo ventriculomegaly and sulcal enlargement is noted compatible with diffuse encephalomalacia. No mass is seen. There is no mass effect or midline shift. There is no evidence of acute intraparenchymal hemorrhage. No extra axial fluid collections are seen. The corpus callosum, pituitary gland, and cerebellar tonsils appear grossly unremarkable. Flow voids of the major intracranial arterial vessels are identified. The imaged portions of the paranasal sinuses, mastoid air cells, and orbits are unremarkable. IMPRESSION: Punctate restricted diffusion is seen in the left supraventricular white matter with likely associated edema. This may possibly represent a tiny infarct. ACT 112: Negative or not required by law. Electronically signed by: Arpan Low M.D. 04/23/2022 3:50 PM Head CTA 04/24/22 07:00 CTA ANGIOGRAPHY OF THE HEAD CLINICAL HISTORY: Left-sided stroke. COMPARISON STUDY: MRI of the brain April 23, 2022. Head CT April 14, 2022. TECHNIQUE: Helical axial images of the head were obtained following uneventful intravenous administration of 120 cc of Optiray. Sagittal and coronal reconstructions were viewed as well as maximal intensity projections on an independent 3-D workstation. Automated exposure control was utilized for the study. A dose lowering technique was utilized adhering to the principles of ALARA. CT DOSE: 679.33 mGy.cm FINDINGS: Ventricular system is normal. Basal cisterns are patent. There are no extra-axial collections. No intracranial hemorrhage is identified on this contrast enhanced exam. There is mild plaque within the bilateral cavernous carotids without stenosis. No central vessel occlusion is present. Right vertebral artery is dominant. The left vertebral artery is diminutive on a congenital basis. There is moderate plaque within the proximal intracranial portion of the right vertebral artery which results in mild stenosis. No intracranial aneurysm or dissection is noted. IMPRESSION: No central vessel occlusion. No intracranial aneurysm. ACT 112: Negative or not required by law. Electronically signed by: Doron Kim M.D. 04/24/2022 11:10 AM Neck CTA 04/24/22 07:00 CT ANGIOGRAM OF THE NECK CLINICAL HISTORY: Stroke. COMPARISON STUDY: No priors. TECHNIQUE: Following the IV administration of 120 of Optiray 320, CT angiogram of the neck was performed from the aortic arch to the skull base. Images are reviewed in the axial, sagittal, and coronal planes. 3-D MIPS images are created and assessed. IV contrast was administered without complication. All measurements were calculated based on NASCET criteria. A dose lowering technique was utilized adhering to the principles of ALARA. FINDINGS: Thoracic aorta: There is mild atherosclerotic calcification of the thoracic aorta. Visualized portions of the thoracic aorta are normal in caliber. The aortic arch demonstrates 4-vessel variant anatomy. The left vertebral artery arises directly from the thoracic aorta. Right carotid arterial system: The right common carotid artery is widely patent, as are the right internal and external carotid arteries. Calcified plaque is noted in the carotid bulb. Left carotid arterial system: The left common carotid artery is widely patent, as are the left internal and external carotid arteries. Advanced atherosclerotic plaque is seen in the carotid bulb. Vertebral arteries: The vertebral arteries are widely patent bilaterally noting right-sided dominance. Subclavian arteries: Widely patent bilaterally. Intracranial vasculature: The visualized intracranial vessels at the skull base appear patent. Jugular veins: Widely patent bilaterally. Brain parenchyma: The visualized brain parenchyma the skull base is within normal limits. Lung apices: Partially visualized upper lobe lung parenchyma appears clear. Soft tissues: The visualized pharyngeal soft tissues are normal in appearance noting angiographic phase technique. The oropharyngeal airway appears widely patent. The thyroid gland is normal in size and heterogeneous in attenuation. Tiny calcified sialoliths are noted in the right parotid gland. The salivary glands are otherwise normal in appearance. No cervical lymphadenopathy is seen. Skeletal structures: The skeletal structures are osteopenic. The visualized calvarium at the skull base appears intact. The imaged cervical spine is maintained noting multilevel spondylosis. No lytic or blastic lesion is seen. Sinuses and mastoids: The visualized paranasal sinuses are clear. The mastoid air cells are well pneumatized. Cerumen is seen within the external auditory canals. IMPRESSION: Unremarkable CT angiogram of the neck. ACT 112: Negative or not required by law. Electronically signed by: Horacio Szymanski M.D. 04/24/2022 9:49 AM Hospital Course (1) Enterococcus UTI: Urine culture with enterococcus. Initially on levaquin, then changed to PO zyvox 600mg BID. Recommend 1 additional week of zyvox post-discharge. (2) BPH (benign prostatic hyperplasia): Patient had severe urinary retention in the setting of BPH with UTI. Bolivar was placed. Remains on dual therapy including finasteride and silodosin Seen by [facility]. They advised Rx of UTI and maintenance of his bolivar catheter until his urology follow-up visit. He should be seen by urology within 1-2 weeks of discharge. (3) Acute diverticulitis: Sigmoid diverticulitis as seen on admission CT. Treated with cipro/flagyl, then changed to levaquin/flagyl. Recommend 3 additional days of levaquin/flagyl after discharge. Patient should have [facility] follow-up in 4-6 weeks. (4) Stroke: Due to the patient's intermittent vertigo and his recent balance issues/falls an MRI of the brain was obtained. This showed a punctate left-sided stroke in the cerebral cortex. There were no posterior circulation strokes to account for his vertigo. CTA head/neck were negative for stenosis, aneurysm, etc. Echo did not show thrombus. Telemetry did not show a.fib. I spoke with his primary ice handler at [facility], Dr John Noyola, and a 30-day event monitor will be arranged to exclude PAF. The patient reported he hadn't been taking aspirin prior to admission. Thus, he was resumed on aspirin 81mg daily. LDL was 34 on lipid profile. HDL was 31. Statin agent was not recommended in light of his significantly low LDL, advanced age, etc. Consider f/u with [facility] in 1 month post-discharge. (5) Vertigo: In light of recent ataxia, falls, and now new-onset vertigo obtained MRI brain which was negative for any acute pathology that would account for his vertigo. His vertigo spells were brief and brought on by head movements. By time of discharge the vertigo spells were resolved. His vertigo was likely peripheral (ie - inner ear) in etiology. He was given antivert prn at discharge. (6) Weakness: multifactorial - UTI, diverticulitis, etc treated the individual components while here (7) RUFINO (acute kidney injury): peak Cr 1.8 Cr at discharge = 1.2 (8) Elevated troponin: likely myocardial demand ischemia in setting of UTI, falls, etc no evidence ACS (9) Fall: falls may have been due to intermittent vertigo, weakness from UTI and sigmoid diverticulitis, etc seen by PT/OT while hospitalized SNF rehab advised; transferring to [facility] for such at discharge (10) Hypokalemia: Replaced Resolved recommend repeat BMP and Magnesium levels within 5-7 days of discharge for stability (11) HTN (hypertension): Controlled Cont metoprolol Cont Entresto Silodosin for BPH will also provide BP control (12) Nocturnal hypoxemia: CPAP at HS (13) Severe obstructive sleep apnea: CPAP at HS (14) Systolic heart failure: compensated throughout the stay EF 40-45% on echo this admission cont metoprolol succinate BID cont Entresto BID cont lasix prn he was seen by [facility] and [facility] several runs of slow VT (AIVR - accelerated idioventricular rhythm) were seen on monitor he had NO symptoms from such given the slow heart rate of the AIVR this usually would not cause dizziness, lightheadedness, or syncope he will follow-up shortly after discharge with [facility], Dr Noyola (15) AIVR (accelerated idioventricular rhythm): as noted by Dr John Noyola several runs of slow VT (AIVR) were seen no specific Rx advised other than keeping his electrolytes wnl and continuing metoprolol BID see #14 above (16) Kidney stones: no Rx needed at this time f/u [facility] both kidney stones and bladder stones were seen on CT this admission Plan transferring to [facility] at discharge pt's daughter updated by phone post-discharge Total Time Total Time Spent Total Time Spent (In Minutes): 45 Discharge Plan Discharge Items Patient Disposition: Transfer Jail Fac Reason For Visit: Falls, weakness Discharge Diagnosis: 1. falls - likely multifactorial 2. weakness - multifactorial 3. enterococcal UTI 4. sigmoid diverticulitis 5. kidney stones 6. bladder stone 7. urinary retention (severe) s/p bolivar placement 8. severe BPH 9. dementia 10. tiny left-sided cerebral stroke, etiology uncertain 11. h/o hyperlipidemia 12. PJ 13. HTN 14. chronic systolic CHF 15. acute kidney injury - resolved 16. acute vertigo - likely peripheral (inner ear) etiology - improved Activity: Resume your previous activity Non-emergency contact: Primary Care Provider, Photoengraving Finisher, Neurologist and Urologist Call non-emergency contact if: you have any medication questions Follow-up/Referrals: [facility] [Provider Group] (6-8 weeks - f/u of sigmoid diverticulitis ) [facility] [Provider Group] (2-4 weeks - follow-up for small stroke) Peter Sykes MD [Primary Care Provider] - Harinder Dial DO [Physician] - (1 week for kidney stone/bladder stone/bolivar/BPH management) John Noyola DO [Physician] - (1-2 weeks ) Diet: Heart Healthy and Low Fiber Addtl Attending Provider Instructions: Mr Frost was treated for the problems listed above in "discharge diagnoses." Recommendations - 1. CBC, BMP in 3 days for stability 2. Leave bolivar catheter intact until seen by [facility] 3. HOLD simvastatin until course of Linezolid antibiotic is complete; may resume simvastatin at that time 4. check daily weights on standing scale, if possible. Notify medical transcription editor if Mr Frost gains more than 2-3 pounds over 1-2 days 5. check EKG on 04/25/22 to ensure normal QTc due to use of several QTc prolonging medications Pending Studies at Discharge: No Stand-Alone Forms: [facility] Skilled Items Patient informed of condition?: Yes DNR: No Discharge Level of Care: Skilled Communicable Disease: No Discharge Prognosis: Stable Lines: None Urinary Catheter: Yes Medications and DC Order Prescriptions: New meclizine 12.5 mg Tablet 12.5 mg PO Q6H PRN (Reason: dizziness/vertigo) Qty: 20 0RF melatonin 3 mg Tablet 3 mg PO HS PRN (Reason: sleep) Qty: 30 0RF Continued silodosin [Rapaflo] 8 mg capsule 8 mg PO HS Qty: 90 3RF finasteride 5 mg tablet 5 mg PO HS Qty: 90 3RF metoprolol succinate 25 mg tablet extended release 24 hr 25 mg PO BID Entresto 49-51 mg Tablet 1 tab PO BID Qty: 60 0RF aspirin 81 mg Tablet,Delayed Release (Dr/Ec) 81 mg PO DAILY Qty: 30 0RF Changed furosemide 20 mg tablet 20 mg PO QAM PRN (Reason: weight gain) Qty: 30 0RF Rx Instructions: take qam if any weight gain of more than 2-3 pounds over 1-2 days Discontinued simvastatin 40 mg tablet 40 mg PO HS Qty: 90 3RF Discharge Orders: Discharge Order (Routine); Ordered 04/24/22 Ordered By: Franco Aranda Admission Data Admit Date/Time: 04/14/22 19:01 Attending Provider: Franco Aranda Admit Provider: Peter Bolton Primary Care Provider: Peter Sykes Other Providers: Peter Bolton ; Danial Calle at [place] ; Harinder Dial ; Clovis Cervantes ; John Noyola Other Interventions: Discharge Summary Assessment (RN) Last Done: 04/24/22 15:33 Coding Level of Care Code HOSP INP/OBS DISCH >30 MIN Diagnoses Enterococcus UTI N39.0; B95.2 BPH (benign prostatic hyperplasia) N40.0 Acute diverticulitis K57.92 Stroke I63.9 Vertigo R42 Weakness R53.1 RUFINO (acute kidney injury) N17.9 Elevated troponin R77.8 Fall W19.XXXA Hypokalemia E87.6 HTN (hypertension) I10 Nocturnal hypoxemia G47.34 Severe obstructive sleep apnea G47.33 Systolic heart failure I50.20 AIVR (accelerated idioventricular rhythm) I44.2 Kidney stones N20.0
[2022-04-24] MEDS: levoFLOXacin 750 MG TAB PO SCH (15:36)
[2022-04-25] MEDS ORDERED: CLOPIDOGREL BISULFATE 75 MG TAB PO SCH (09:00)
== END 2022-04-24 16:05 | DRG 683 ==
LOC: ED 13:05 → EDINP 19:01 → SUATTDRO 19:01 → 2W 04-15 00:33

== ENCOUNTER 2022-09-24 20:05 | Inpatient (IN) ==
--- NOTE | 2022-09-24 20:07 | Emergency Department Note ---
Impression & Plan Sepsis, Atrial fibrillation, Hydronephrosis due to obstruction of bladder, Catheter-associated urinary tract infection ED Provider Note NAME: ARIANE BETANCOURT Jr AGE: 82 SEX: M : 1940 ARRIVES VIA: Ambulance INFORMANT: Patient, ED PROVIDER(S): Derrick Mahmood MD CHIEF COMPLAINT: Fall, closed head injury MEDICAL DECISION MAKING: Patient presents due to concern for fall and closed head injury. IV established blood was obtained along with a CT of the head and cervical spine. Patient was noted to have a white count of 17 given the patient's abdominal fullness with what appeared to be not a very well draining catheter I did add blood cultures and lactate cefepime after discussion with pharmacy reviewing prior culture results as well as the patient's penicillin allergy. Patient also did have blood cultures obtained. Patient subsequently was noted to have a fever and was given ibuprofen. 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 CT of the head and cervical spine were negative. CT of the abdomen pelvis was added given the patient's white count and abdominal fullness. The patient's kidney function was grossly unremarkable. No azotemia. The patient did receive additional IV fluids. The patient's electrolytes are grossly unremarkable. Patient's initial lactate was 1.2 with a procalcitonin of 09. Urinalysis does show possible infection given positive nitrites bacteria. Patient CT of the pelvis does show patient does have bladder distention likely indicative of a nonfunctioning catheter. I did have nursing replace this. Patient was having some blood in the penis after this was removed. I did speak with nursing as well as the on-call hospitalist service about trying a three-way catheter with continuous bladder irrigation. I did speak the on-call hospitalist service Dr. Ryan and the patient was admitted to the medicine service. Of note the patient did not receive a 30 cc/kg bolus as the patient did have a known history of heart failure. Patient was maintaining maps had a normal lactate. Upon reassessment the patient was feeling improved. Prior /Outside records reviewed: I did review a discharge summary from Dr. Aranda from April 2022. Known history of heart failure with reduced ejection fraction mild MR TR dementia hypertension PJ with nocturnal hypoxemia CAD HLD BPH. Patient does have a known history of multiple falls as well as known history of dementia I did review a urine culture result from 2 days prior which showed gram-negative bacilli. Differential diagnosis: Fracture, dislocation, contusion, intra-abdominal, pneumothorax, intrathoracic, intracranial, neurologic, compartment syndrome, rhabdomyolysis, as well as other pathologies. Diagnostics, as interpreted by me: ECG: Atrial fibrillation, tachycardic rate, rate of 104, normal QRS duration, no obvious ST elevations. Cardiac monitoring: An order was placed for continuous cardiac monitoring. The monitor shows a rate of 95 with irregularly irregular rhythm. Patient was placed on pulse oximetry Medical decision rules: none Imaging studies: See below HPI: Patient presents due to concern for fall that occurred prior to arrival. The patient states that he was going to to the bathroom when he slipped and fell. Patient states that he did have some associated weakness. Patient does b elieve that he struck the left side of his head. Patient denies any numbness tingling or focal weakness. The patient does have a history of dementia But does appear to be answering questions appropriately. Patient states that last of his Eliquis prior to arrival. No LOC. Patient denies any current head neck chest back or lower extremity pain. Patient does complain of some abdominal fullness. Patient believes that his catheter has been draining but he has been having some intermittent issues since he did have replaced by home health about a week ago. Patient denies any nausea vomiting or diarrhea. Mild abdominal discomfort noted. PAST MEDICAL HISTORY: See Below PAST SURGICAL HISTORY: See Below SOCIAL HISTORY: See Below HOME MEDICATIONS: See Below ALLERGIES: See Below VITALS: See Below PHYSICAL EXAMINATION: GENERAL: NAD, non-toxic. EYE EXAM: Normal conjunctiva. PERRL, no anisocoria and EOM's grossly intact w/o pain. HEAD: Normocephalic, small hematoma to the left forehead area. No obvious laceration. NECK: Supple, no nuchal rigidity, no adenopathy, non-tender. No signs of meningismus. FROM of the neck with good chin to chest and neck extension. No stridor. no midline C-spine TTP. LUNGS: Clear to auscultation. Normal chest wall mechanics. HEART: Irregularly irregular, no MRG. ABDOMEN:Nextdominal fullness w/ ab discomfort noted in lower abdomen, not peritonitic. BACK: No CVA TTP. : Wade catheter in place w/ small amount of blood-tinged urine noted in catheter bag. SKIN: No rashes. UPPER EXTREMITIES: Upper extremities are grossly normal. No TTP or deformity. LOWER EXTREMITIES: Grossly normal, no edema. no TTP or deformity. NEURO EXAM: A&O x3, cranial nerves II-XII grossly intact, normal speech, moves all 4 extremities. Past Med/Surg History Medical History Atrial fibrillation PT NOT AWARE BPH (benign prostatic hyperplasia) Cardiomyopathy, dilated, nonischemic EF 40-45% 03/2022 echo Coronary artery calcification Fall 04/17/22 PLACED AT [facility] FOR REHAB Wade catheter in place ? still in place/current resident at [place] Hearing difficulty Hematuria History of COVID-19 05/22/2022- TESTED AT [facility]- RUNNY NOSE, FEVER, PAXLOVID; RESOLVED HTN (hypertension) Hyperlipidemia Kidney stones Lumbar spondylosis Mitral regurgitation MVP (mitral valve prolapse) "MILD" -- follows w/ Dr. Noyola Nocturnal hypoxemia PVC (premature ventricular contraction) follows with [facility] Sleep apnea no device Stenosis, cervical spine Stroke DENIES Urinary retention Weakness Surgical History History of cardiac cath 8- YEARS AGO/NO STENTS History of cataract surgery left cataract 09/29/2018. 2mg versed, 50mcg fentanyl. no issues. 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 Family History Brother Prostate cancer Father Kidney stones Other No family history of adverse response to anesthesia Social History Smoking Status: Never smoker Second Hand Exposure: No; Do You Dip or Chew Tobacco: No; Hx Alcohol Use: No Hx Substance Use: No Preferred Language: [place] Communication Ability: Impaired Visual Impairment: Diminished Hearing Ability: Use of Hearing Aid Director Investor Relations Required: No Beliefs That Will Affect Care: None marital status: Current Living Situation: Other Current Living Situation Comment: [place] current occupational status: retired Feels Safe at Home: Yes Childhood Exposure to Second-Hand Smoke: No Diet: regular caffeine: Yes (2 CUPS OF COFFEE DAILY) Dental Care, Regularly: Yes Physical Activity Frequency: Does not Exercise Physical Activity Frequency Comment: DUE TO PHYSICAL CONDITION Seatbelt Use: always Sunscreen Use: No Assistive Devices: Wheelchair Allergies Allergies Allergy/AdvReac Type Severity Reaction Status Date / Time Penicillins Allergy Severe Dizziness Verified 09/24/22 21:58 & SHORTNESS OF BREATH Home Meds Home Medications Medication Instructions Recorded Confirmed metoprolol succinate 25 mg 25 mg PO BID 04/14/22 09/24/22 tablet,extended release 24 hr apixaban 5 mg tablet (Eliquis) 5 mg PO BID 06/20/22 09/24/22 acetaminophen 325 mg capsule 650 mg PO Q4H PRN PAIN/FEVER 09/05/22 09/24/22 (Tylenol) aspirin 81 mg tablet,delayed 81 mg PO QAM 09/05/22 09/24/22 release cetirizine 5 mg tablet 5 mg PO QAM 09/05/22 09/24/22 famotidine-Ca carb-mag hydrox 10 1 tab PO BID PRN Acid Reflux 09/05/22 09/24/22 mg-800 mg-165 mg chewable tablet (Pepcid Complete) finasteride 5 mg tablet 5 mg PO QAM 09/05/22 09/24/22 furosemide 20 mg tablet 20 mg PO QAM 09/05/22 09/24/22 ipratropium bromide 21 mcg (0.03 2 spray intranasal TID PRN Runny 09/05/22 09/24/22 %) nasal spray Nose simvastatin 40 mg tablet 40 mg PO QPM 09/05/22 09/24/22 fosfomycin tromethamine 3 gram 1 packet PO ONCE 09/24/22 09/24/22 oral packet furosemide 20 mg tablet 20 mg PO QAM PRN EDEMA/WEIGHT GAIN 09/24/22 09/24/22 silodosin 4 mg capsule 4 mg PO HS 09/24/22 09/24/22 Previous Rx's Medication Instructions Recorded sacubitril 49 mg-valsartan 51 mg 1 tab PO BID #60 tabs 12/12/20 tablet (Entresto) meclizine 12.5 mg tablet 12.5 mg PO Q6H PRN 04/24/22 dizziness/vertigo #20 tabs melatonin 3 mg tablet 3 mg PO HS PRN sleep #30 tabs 04/24/22 nitrofurantoin 100 mg PO Q12H 7 days #14 caps 09/08/22 monohydrate/macrocrystals 100 mg capsule (Macrobid) Results & Data (ED) Vital Signs Vital Signs - 24 hr 09/24/22 20:22 09/24/22 20:19 09/24/22 20:05 Temperature 38.1 C H Temperature Source Oral Pulse Rate 100 H 101 H 115 H Pulse Rate from SpO2 Sensor Respiratory Rate 18 18 Blood Pressure 112/58 L Blood Pressure Mean 76 Blood Pressure Position Sitting Pulse Oximetry 92 94 Oxygen Delivery Method Room Air Room Air Sepsis Recent Fever Within 48 Hours No Sepsis New/Unexplained Change in Mental Status No Sepsis Action Taken by Nursing Physician Notified 09/24/22 21:04 09/24/22 22:53 Temperature Temperature Source Pulse Rate 94 H 87 Pulse Rate from SpO2 Sensor 93 H 88 Respiratory Rate 22 21 Blood Pressure 116/76 140/77 Blood Pressure Mean 89 98 Blood Pressure Position Pulse Oximetry 93 95 Oxygen Delivery Method Room Air Room Air Sepsis Recent Fever Within 48 Hours Sepsis New/Unexplained Change in Mental Status Sepsis Action Taken by [place] Medications Current Medication List: was personally reviewed by me Laboratory Data Attestation: I reviewed the patient's lab results. 09/25/22 05:56 09/25/22 05:56 Lab Results 09/24/22 09/24/22 09/24/22 Range/Units 20:17 20:17 20:17 WBC 19.52 H (4.8-10.8) K/ul RBC 4.33 L (4.70-6.10) M/uL Hgb 12.3 L (14.0-18.0) g/dl Hct 37.7 L (42.0-52.0) % MCV 87.1 (80.0-100.0) fL MCH 28.4 (25.0-34.0) pg MCHC 32.6 (32.0-36.0) g/dL RDW Std Deviation 43.8 (36.4-46.3) fL RDW Coeff of Inderjit 13.9 (11.5-14.5) % Plt Count 351 (130-400) K/uL MPV 9.1 L (9.4-12.4) fL Immature Gran % (Auto) 0.8 % Neut % (Auto) 80.2 % Lymph % (Auto) 8.0 % [place] % (Auto) 9.1 % Eos % (Auto) 1.6 % Baso % (Auto) 0.3 % Neut # (Auto) 15.64 H (1.40-6.50) K/uL Lymph # (Auto) 1.56 (1.2-3.4) K/uL [place] # (Auto) 1.78 H (0.11-0.59) K/uL Eos # (Auto) 0.32 (0-0.50) K/uL Baso # (Auto) 0.06 (0-0.2) K/uL Immature Gran # (Auto) 0.16 (0.01-0.20) K/uL PT 13.5 H (9.0-12.0) Seconds INR 1.2 H (0.9-1.1) Sodium 135 L (136-145) mmol/L Potassium 4.0 (3.5-5.1) mmol/L Chloride 103 (98-107) mmol/L Carbon Dioxide 23 (21-32) mmol/L Anion Gap 9 (3-11) BUN 27 H (6-23) mg/dl Creatinine 1.26 (0.6-1.4) mg/dl Est Cr Clr Drug Dosing Not Reportable Est GFR ( Amer) 61.6 ml/min Est GFR (Non-Af Amer) 53.1 ml/min BUN/Creatinine Ratio 21.4 H (10-20) Glucose 223 H (70-99(Fasting)) mg/dl Lactate (0.4-2.0) mmol/L Calcium 9.0 (8.6-10.3) mg/dl Total Bilirubin 1.4 H (0.2-1.0) mg/dl AST 12 L (13-39) U/L ALT 7 (7-52) U/L Alkaline Phosphatase 76 (34-104) U/L Total Protein 7.3 (6.0-8.3) gm/dl Albumin 3.6 (3.4-5.0) gm/dl Globulin 3.7 (2.5-4.0) gm/dl Albumin/Globulin Ratio 1.0 (0.9-2) Procalcitonin (0-0.5) ng/ml Urine Color Urine Appearance (Clear) Urine pH (4.5-7.5) Ur Specific [place] (1.000-1.030) Urine Protein (Negative) Urine Glucose (UA) (Negative) Urine Ketones (Negative) Urine Blood (Negative) Urine Nitrite (Negative) Urine Bilirubin (Negative) Urine Urobilinogen (Negative) Ur Leukocyte Esterase (Negative) Urine RBC (0-4) /hpf Urine WBC (0-5) /hpf Ur Epithelial Cells (0-5) /lpf Urine Bacteria (Negative) SARS-CoV-2, RNA, NAAT (NEGATIVE) 09/24/22 09/24/22 09/24/22 Range/Units 20:17 21:15 21:33 WBC (4.8-10.8) K/ul RBC (4.70-6.10) M/uL Hgb (14.0-18.0) g/dl Hct (42.0-52.0) % MCV (80.0-100.0) fL MCH (25.0-34.0) pg MCHC (32.0-36.0) g/dL RDW Std Deviation (36.4-46.3) fL RDW Coeff of Inderjit (11.5-14.5) % Plt Count (130-400) K/uL MPV (9.4-12.4) fL Immature Gran % (Auto) % Neut % (Auto) % Lymph % (Auto) % [place] % (Auto) % Eos % (Auto) % Baso % (Auto) % Neut # (Auto) (1.40-6.50) K/uL Lymph # (Auto) (1.2-3.4) K/uL [place] # (Auto) (0.11-0.59) K/uL Eos # (Auto) (0-0.50) K/uL Baso # (Auto) (0-0.2) K/uL Immature Gran # (Auto) (0.01-0.20) K/uL PT (9.0-12.0) Seconds INR (0.9-1.1) Sodium (136-145) mmol/L Potassium (3.5-5.1) mmol/L Chloride (98-107) mmol/L Carbon Dioxide (21-32) mmol/L Anion Gap (3-11) BUN (6-23) mg/dl Creatinine (0.6-1.4) mg/dl Est Cr Clr Drug Dosing Est GFR ( Amer) ml/min Est GFR (Non-Af Amer) ml/min BUN/Creatinine Ratio (10-20) Glucose (70-99(Fasting)) mg/dl Lactate 1.2 (0.4-2.0) mmol/L Calcium (8.6-10.3) mg/dl Total Bilirubin (0.2-1.0) mg/dl AST (13-39) U/L ALT (7-52) U/L Alkaline Phosphatase (34-104) U/L Total Protein (6.0-8.3) gm/dl Albumin (3.4-5.0) gm/dl Globulin (2.5-4.0) gm/dl Albumin/Globulin Ratio (0.9-2) Procalcitonin 0.09 (0-0.5) ng/ml Urine Color Red Urine Appearance Turbid A (Clear) Urine pH 7.0 (4.5-7.5) Ur Specific [place] 1.020 (1.000-1.030) Urine Protein 3+ H (Negative) Urine Glucose (UA) Negative (Negative) Urine Ketones Negative (Negative) Urine Blood 3+ H (Negative) Urine Nitrite Positive A (Negative) Urine Bilirubin Negative (Negative) Urine Urobilinogen Negative (Negative) Ur Leukocyte Esterase 3+ H (Negative) Urine RBC >30 H (0-4) /hpf Urine WBC >30 H (0-5) /hpf Ur Epithelial Cells 0-5 (0-5) /lpf Urine Bacteria 2+ H (Negative) SARS-CoV-2, RNA, NAAT (NEGATIVE) 09/24/22 Range/Units 22:53 WBC (4.8-10.8) K/ul RBC (4.70-6.10) M/uL Hgb (14.0-18.0) g/dl Hct (42.0-52.0) % MCV (80.0-100.0) fL MCH (25.0-34.0) pg MCHC (32.0-36.0) g/dL RDW Std Deviation (36.4-46.3) fL RDW Coeff of Inderjit (11.5-14.5) % Plt Count (130-400) K/uL MPV (9.4-12.4) fL Immature Gran % (Auto) % Neut % (Auto) % Lymph % (Auto) % [place] % (Auto) % Eos % (Auto) % Baso % (Auto) % Neut # (Auto) (1.40-6.50) K/uL Lymph # (Auto) (1.2-3.4) K/uL [place] # (Auto) (0.11-0.59) K/uL Eos # (Auto) (0-0.50) K/uL Baso # (Auto) (0-0.2) K/uL Immature Gran # (Auto) (0.01-0.20) K/uL PT (9.0-12.0) Seconds INR (0.9-1.1) Sodium (136-145) mmol/L Potassium (3.5-5.1) mmol/L Chloride (98-107) mmol/L Carbon Dioxide (21-32) mmol/L Anion Gap (3-11) BUN (6-23) mg/dl Creatinine (0.6-1.4) mg/dl Est Cr Clr Drug Dosing Est GFR ( Amer) ml/min Est GFR (Non-Af Amer) ml/min BUN/Creatinine Ratio (10-20) Glucose (70-99(Fasting)) mg/dl Lactate (0.4-2.0) mmol/L Calcium (8.6-10.3) mg/dl Total Bilirubin (0.2-1.0) mg/dl AST (13-39) U/L ALT (7-52) U/L Alkaline Phosphatase (34-104) U/L Total Protein (6.0-8.3) gm/dl Albumin (3.4-5.0) gm/dl Globulin (2.5-4.0) gm/dl Albumin/Globulin Ratio (0.9-2) Procalcitonin (0-0.5) ng/ml Urine Color Urine Appearance (Clear) Urine pH (4.5-7.5) Ur Specific [place] (1.000-1.030) Urine Protein (Negative) Urine Glucose (UA) (Negative) Urine Ketones (Negative) Urine Blood (Negative) Urine Nitrite (Negative) Urine Bilirubin (Negative) Urine Urobilinogen (Negative) Ur Leukocyte Esterase (Negative) Urine RBC (0-4) /hpf Urine WBC (0-5) /hpf Ur Epithelial Cells (0-5) /lpf Urine Bacteria (Negative) SARS-CoV-2, RNA, NAAT NEGATIVE (NEGATIVE) Administered Medications Acetaminophen (Acetaminophen 325 Mg Tab) 650 mg PO Q4H PRN PRN Reason: Pain or Fever Stop: 10/25/22 00:38 Last Admin: 09/25/22 11:48 Dose: 650 mg Documented By: TELLY Cetirizine HCl (Cetirizine Hcl 10 Mg Tablet) 10 mg PO [facility] Stop: 10/25/22 08:59 Last Admin: 09/25/22 09:38 Dose: 10 mg Documented By: TELLY Finasteride (Finasteride 5 Mg Tab) 5 mg PO [facility] Stop: 10/25/22 08:59 Last Admin: 09/25/22 09:38 Dose: 5 mg Documented By: TELLY Cefepime HCl 2,000 mg/ Syringe 20 mls @ 5 mls/min IV Q12H [facility]; Protocol Stop: 10/05/22 07:59 Last Admin: 09/25/22 07:40 Dose: 5 mls/min Documented By: TELLY Insulin Aspart (Insulin Aspart Per Unit Charge) 0 units [facility] Stop: 10/25/22 07:29 Last Admin: 09/25/22 17:04 Dose: Not Given Documented By: Admin: 09/25/22 12:14 Dose: Not Given Documented By: Admin: 09/25/22 08:50 Dose: Not Given Documented By: TELLY Ipratropium [place] (Ipratropium [place] Nasal [place] 0.06% 15ml) 2 sprays MILLIE TID PRN PRN Reason: Runny Nose Stop: 10/25/22 00:39 Last Admin: 09/25/22 09:38 Dose: 2 sprays Documented By: TELLY Meclizine HCl (Meclizine 12.5 Mg Tab) 12.5 mg PO Q6H PRN PRN Reason: dizziness/vertigo Stop: 10/25/22 00:35 Last Admin: 09/25/22 09:38 Dose: 12.5 mg Documented By: MTM Metoprolol Succinate (Metoprolol Succ 25mg Ext Rel Tab) 25 mg PO BID PAULA Stop: 10/25/22 08:59 Last Admin: 09/25/22 09:38 Dose: 25 mg Documented By: MTM Sacubitril/Valsartan (Valsartan/Sacubitril 51/49 Mg Tab) 1 tab PO BID PAULA Stop: 10/25/22 08:59 Last Admin: 09/25/22 09:38 Dose: 1 tab Documented By: MTM Discontinued Medications Sodium Chloride (Nss) 500 mls @ 999 mls/hr IV .Q31M PAULA Stop: 09/24/22 21:00 Last Infusion: 09/24/22 22:19 Dose: 0 mls/hr Documented By: Admin: 09/24/22 21:34 Dose: 999 mls/hr Documented By: QGV Sodium Chloride (Nss 1000ml) 500 mls @ 999 mls/hr IV .Q31M ONE Stop: 09/24/22 22:26 Last Infusion: 09/24/22 23:21 Dose: 0 mls/hr Documented By: Admin: 09/24/22 22:23 Dose: 999 mls/hr Documented By: QGV Acetaminophen (Ofirmev) 1,000 mg in 100 mls @ 400 mls/hr IV NOW STA Stop: 09/24/22 22:14 Last Infusion: 09/24/22 22:25 Dose: 0 mls/hr Documented By: Admin: 09/24/22 22:00 Dose: 400 mls/hr Documented By: QGV Cefepime HCl (Maxipime) 2,000 mg in 20 mls @ 5 mls/min IV NOW STA; Protocol Stop: 09/24/22 22:16 Last Admin: 09/24/22 22:23 Dose: 5 mls/min Documented By: QGV Potassium Chloride/Sodium Chloride (Normal Saline W/20 Meq Kcl) 20 meq in 1,000 mls @ 60 mls/hr IV .[id number] PAULA Stop: 09/25/22 17:15 Last Infusion: 09/25/22 17:24 Dose: 0 mls/hr Documented By: Infusion: 09/25/22 12:30 Dose: 0 mls/hr Documented By: Admin: 09/25/22 01:00 Dose: 60 mls/hr Documented By: JUVENAL Ioversol (Optiray 320 500ml) 90 ml IV ONCE ONE Stop: 09/24/22 22:35 Last Admin: 09/24/22 22:34 Dose: 90 ml Documented By: MARIANA Lidocaine HCl (Lidocaine 2% Jelly 5 Ml Tube) Confirm Administered Dose 5 ml EXT .STK-MED ONE Stop: 09/24/22 23:26 Last Admin: 09/24/22 23:47 Dose: 5 ml Documented By: LUDMILA Discharge Plan Visit Data Chief Complaint: Fall Stated Complaint: Fall, Head Injury ED Provider: Derrick Mahmood Discharge Problem: Sepsis, Atrial fibrillation, Hydronephrosis due to obstruction of bladder, Catheter-associated urinary tract infection Patient Disposition: Admitted As Inpatient Discharge Instructions Interventions: ED Discharge Assessment Last Done: 09/24/22 23:57
[2022-09-24] MEDS ORDERED: SODIUM CHLORIDE 0.9% 500 ML IV SCH (20:30)
[2022-09-24 20:32] LABS: Basophils # (auto) 0.06 K/uL (0-0.2); Basophils % (auto) 0.3 %; Eosinophils # (auto) 0.32 K/uL (0-0.50); Eosinophils % (auto) 1.6 %; Hematocrit (blood only) 37.7 % (42.0-52.0); Hemoglobin 12.3 g/dl (14.0-18.0); Immature Granulocytes # (auto) 0.16 K/uL (0.01-0.20); Immature Granulocytes % (auto) 0.8 %; Lymphocytes # (auto) 1.56 K/uL (1.2-3.4); Mean Corpuscular Hemoglobin 28.4 pg (25.0-34.0); Mean Corpuscular Hgb Conc 32.6 g/dL (32.0-36.0); Mean Corpuscular Volume 87.1 fL (80.0-100.0); Mean Platelet Volume 9.1 fL (9.4-12.4); Monocytes # (auto) 1.78 K/uL (0.11-0.59); Monocytes % (auto) 9.1 %; Neutrophils # (auto) 15.64 K/uL (1.40-6.50); Neutrophils % (auto) 80.2 %; Platelet Count 351 K/uL (130-400); RDW Coefficient of Variation 13.9 % (11.5-14.5); RDW Standard Deviation 43.8 fL (36.4-46.3); Red Blood Count 4.33 M/uL (4.70-6.10); White Blood Count 19.52 K/ul (4.8-10.8)
[2022-09-24 20:47] LABS: Alanine Aminotransferase 7 U/L (7-52); Albumin Level 3.6 gm/dl (3.4-5.0); Alkaline Phosphatase 76 U/L (34-104); Anion Gap 9 (3-11); Aspartate Aminotransferase 12 U/L (13-39); BUN Creatinine Ratio 21.4 (10-20); Bilirubin,Total 1.4 mg/dl (0.2-1.0); Blood Urea Nitrogen 27 mg/dl (6-23); Carbon Dioxide 23 mmol/L (21-32); Chloride 103 mmol/L (98-107); Est GFR (African American) 61.6 ml/min; Est GFR (Non-African American) 53.1 ml/min; Globulin 3.7 gm/dl (2.5-4.0); Glucose 223 mg/dl (70-99(Fasting)); Sodium 135 mmol/L (136-145); Total Protein 7.3 gm/dl (6.0-8.3)
[2022-09-24 20:57] LABS: INR 1.2 (0.9-1.1); Prothrombin Time 13.5 Seconds (9.0-12.0)
--- NOTE | 2022-09-24 21:23 | CT Scan Report ---
Exam(s): CT HEAD Without Contrast EXAM: CT Head Without Intravenous Contrast CLINICAL HISTORY: Reason for exam: Trauma. TECHNIQUE: Axial computed tomography images of the head/brain without intravenous contrast. CTDI is 38.97 mGy and DLP is 702.46 mGy-cm. Automated exposure control was utilized for the study. A dose lowering technique was utilized adhering to the principles of ALARA. COMPARISON: MRI brain on 04/23/2022. CT head on 04/14/2022. FINDINGS: Brain: No acute infarct or hemorrhage identified. No extra-axial fluid collection. No mass effect or midline shift. Scattered areas of hypoattenuation in the supratentorial white matter likely represent chronic small vessel ischemic changes. Ventricles and sulci: Prominence of the ventricles and sulci is likely secondary to cerebral volume loss. Bones: Normal. No bony lesion or acute fracture. Subcutaneous tissues: Normal. Sinuses: Small polyp versus mucous retention cyst in the right maxillary sinus. Mastoid air cells: Normal. Orbits: Bilateral lens implants. Other: Atherosclerotic calcifications in the intracranial vasculature. IMPRESSION: 1. No acute intracranial abnormality. 2. Chronic small vessel ischemic changes and cerebral volume loss. Electronically signed by: Dorie Messer M.D. 09/24/22 21:22 PM
--- NOTE | 2022-09-24 21:27 | CT Scan Report ---
Exam(s): CT C SPINE EXAM: CT Cervical Spine Without Intravenous Contrast CLINICAL HISTORY: Reason for exam: head trauma. TECHNIQUE: Axial computed tomography images of the cervical spine without intravenous contrast. CTDI is 25.96 mGy and DLP is 535.75 mGy-cm. Automated exposure control was utilized for the study. A dose lowering technique was utilized adhering to the principles of ALARA. COMPARISON: None FINDINGS: Bones: Normal alignment. No acute fracture or bony lesion. Disc spaces: No subluxation. Degenerative changes of the spine. Soft tissues: Normal. Other: Atherosclerotic changes of the vasculature. IMPRESSION: No acute traumatic abnormality. Electronically signed by: Dorie Messer M.D. 09/24/22 21:26 PM
[2022-09-24] MEDS ORDERED: SODIUM CHLORIDE 0.9% 1000ML 500 ML IV ONE (21:56)
[2022-09-24] MEDS ORDERED: ACETAMINOPHEN 1,000 MG/100 ML VIAL IV STA (22:00)
[2022-09-24] MEDS ORDERED: CEFEPIME 2,000 MG/20 ML VIAL IV STA (22:13)
[2022-09-24 22:23] LABS: Appearance Urine Turbid (Clear); Bilirubin Urine Negative (Negative); Blood Urine 3+ (Negative); Color Urine Red; Glucose Urine UA Negative (Negative); Ketones Urine Negative (Negative); Leukocyte Esterase Urine 3+ (Negative); Nitrite Urine Positive (Negative); Protein Urine 3+ (Negative); Urobilinogen Urine Negative (Negative)
[2022-09-24 22:25] LABS: Epithelial Cell Urine 0-5 /lpf (0-5); RBC Urine >30 /hpf (0-4); WBC Urine >30 /hpf (0-5)
[2022-09-24 22:26] LABS: Bacteria Urine 2+ (Negative)
[2022-09-24] MEDS ORDERED: OPTIRAY 320 500ml IV ONE (22:34)
--- NOTE | 2022-09-24 23:08 | CT Scan Report ---
Exam(s): CT ABDOMEN + PELVIS With Contrast IV Amt: 90ml optiray 320 EXAM: CT Abdomen and Pelvis With Intravenous Contrast CLINICAL HISTORY: Reason for exam: ab fullness, fever, indwelling cath, WBC 19. TECHNIQUE: Axial computed tomography images of the abdomen and pelvis with intravenous contrast. CTDI is 24.22 mGy and DLP is 1213.31 mGy-cm. Automated exposure control was utilized for the study. A dose lowering technique was utilized adhering to the principles of ALARA. CONTRAST: Patient received 90ml optiray 320 of IV contrast COMPARISON: None FINDINGS: Lung bases: Unremarkable. No mass. No consolidation. Heart: Small pericardial effusion. Mediastinum: Small hiatal hernia. ABDOMEN: Liver: Unremarkable. No mass. Gallbladder and bile ducts: Cholelithiasis. No ductal dilation. Pancreas: Unremarkable. No mass. No ductal dilation. Spleen: Unremarkable. No splenomegaly. Adrenals: Unremarkable. No mass. Kidneys and ureters: Moderate left hydroureteronephrosis. Nonobstructing left renal stones. No ureteral stone on the left. 7 mm stone in the distal right ureter. Minimal fullness of the right renal collecting system. Nonobstructing right renal stones. Stomach and bowel: Diverticulosis. Inflammatory changes of the distal descending colon, compatible with diverticulitis. Moderate stool in the rectum. Evaluation of the stomach is limited by under distention. PELVIS: Appendix: Normal appendix. Bladder: Severely distended bladder with small gas foci and mild gallbladder wall prominence. Please correlate with urinalysis to evaluate for cystitis. 1.1 cm stone in the posterior bladder. Reproductive: Mild prostatomegaly. Probable protrusion of prostatic tissue along the base of the bladder. ABDOMEN and PELVIS: Intraperitoneal space: Unremarkable. No free air. No significant fluid collection. Bones/joints: No acute fracture. No dislocation. Degenerative changes of the spine. Probably chronic superior endplate compression deformities of the T12 and L2 vertebral bodies. Nonspecific lucency in the anterior L5. Soft tissues: Gynecomastia partially visualized. Vasculature: Atherosclerotic changes of the vasculature. No aortic aneurysm or dissection. Lymph nodes: Unremarkable. No enlarged lymph nodes. Other findings: Moderate to severe. IMPRESSION: 1. Diverticulosis. Inflammatory changes of the distal descending colon, compatible with diverticulitis. 2. 1.1 cm stone in the posterior bladder. 3. Severely distended bladder with small gas foci and mild gallbladder wall prominence. Please correlate with urinalysis to evaluate for cystitis. 4. Moderate left hydroureteronephrosis. Nonobstructing left renal stones. No ureteral stone on the left. 5. 7 mm stone in the distal right ureter. Minimal fullness of the right renal collecting system. Nonobstructing right renal stones. 6. Mild prostatomegaly. Probable protrusion of prostatic tissue along the base of the bladder. 7. Cholelithiasis. Electronically signed by: Dorie Messer M.D. 09/24/22 23:08 PM
[2022-09-24] MEDS ORDERED: LIDOCAINE 2% JELLY 5 ML TUBE EXT ONE (23:25)
--- NOTE | 2022-09-24 23:29 | History & Physical Report ---
Date of Service September 24, 2022 Assessment & Plan (1) Atrial fibrillation: (2) BPH w urinary obs/LUTS: (3) Right distal ureteral calculus: (4) UTI (urinary tract infection): (5) Hematuria: (6) Gait apraxia: (7) PJ (obstructive sleep apnea): (8) Hydronephrosis due to obstruction of bladder: (9) Hydronephrosis due to obstruction of ureter: Plan Complicated UTI/BPH with bladder outlet obstruction causing severely distended bladder/moderate left hydroureteronephrosis without stone/minimal fullness right renal collecting system with 7 mm distal right ureteral calculus- Patient reports that the right kidney stone, and enlarged prostate had been [facility], but him being on Eliquis and appropriate timing has limited intervention. Patient reports a follow-up/repeat TURP has been scheduled for about 2 weeks from now Hold Eliquis and aspirin Follow urine culture sensitivity. Urinalysis from 09/22/2022 as outpatient shows gram-negative bacilli Continue empiric cefepime 2 g IV every 12 hours as begun in the ED Patient did receive NSS 500 mils x2 from the ED, and will continue NSS plus KCl 20 mEq at 60 mils per hour Hold nitrofurantoin and fosfomycin Tamsulosin and finasteride Consult urology Hematuria- Wade catheter was removed by nursing in ED, with resultant gross hematuria Patient will have CBI begun after placement of three-way Wade catheter Atrial fibrillation/hypertension/HFrEF/MVP/PVC history- Hold apixaban and aspirin as noted Continue Entresto and metoprolol succinate Hold furosemide Hyperlipidemia- Continue simvastatin History of Present Illness Chief Complaint: The patient is referred to the emergency department from [facility] due to a fall that occurred as he was transferring from his wheelchair to another chair earlier in the day today. Primary Care Provider: [facility] The patient is a 82-year-old male with a past medical history including lumbar spinal stenosis, PJ, gait apraxia, wheelchair-bound, HFrEF, AIVR, atrial fibrillation, BPH, stroke, cervical spine stenosis and mitral valve prolapse. He has been followed recently [facility] due to issues with enlarged prostate and bladder outlet obstruction, and has had a Wade catheter placed with recurrent urinary tract infections. The patient has had difficulty coordin ating antibiotics being sent to his outpatient pharmacy and then to his home, where he is no longer living, and not being sent to [facility], where he is living. His most recent urinalysis on 09/22/2022 growing gram-negative bacilli, has a prescription for nitrofurantoin on his record, but has not had this filled because of the above. He was supposed to have a TURP performed recently, but had not had his Eliquis stopped, and therefore cannot have it done. He says he is rescheduled for 2 weeks to have a TURP procedure done, and needs to be off of Eliquis for 3 days prior to that. Allergies Allergy/AdvReac Type Severity Reaction Status Date / Time Penicillins Allergy Severe Dizziness Verified 09/24/22 21:58 & SHORTNESS OF BREATH Home Medications Medication Instructions Recorded Confirmed Type sacubitril 49 mg-valsartan 51 mg 1 tab PO BID #60 tabs 12/12/20 09/24/22 Rx tablet (Entresto) metoprolol succinate 25 mg 25 mg PO BID 04/14/22 09/24/22 History tablet,extended release 24 hr meclizine 12.5 mg tablet 12.5 mg PO Q6H PRN 04/24/22 09/24/22 Rx dizziness/vertigo #20 tabs melatonin 3 mg tablet 3 mg PO HS PRN sleep #30 tabs 04/24/22 09/24/22 Rx apixaban 5 mg tablet (Eliquis) 5 mg PO BID 06/20/22 09/24/22 History acetaminophen 325 mg capsule 650 mg PO Q4H PRN PAIN/FEVER 09/05/22 09/24/22 History (Tylenol) aspirin 81 mg tablet,delayed 81 mg PO QAM 09/05/22 09/24/22 History release cetirizine 5 mg tablet 5 mg PO QAM 09/05/22 09/24/22 History famotidine-Ca carb-mag hydrox 10 1 tab PO BID PRN Acid Reflux 09/05/22 09/24/22 History mg-800 mg-165 mg chewable tablet (Pepcid Complete) finasteride 5 mg tablet 5 mg PO QAM 09/05/22 09/24/22 History furosemide 20 mg tablet 20 mg PO QAM 09/05/22 09/24/22 History ipratropium bromide 21 mcg (0.03 2 spray intranasal TID PRN Runny 09/05/22 09/24/22 History %) nasal spray Nose simvastatin 40 mg tablet 40 mg PO QPM 09/05/22 09/24/22 History nitrofurantoin 100 mg PO Q12H 7 days #14 caps 09/08/22 09/24/22 Rx monohydrate/macrocrystals 100 mg capsule (Macrobid) fosfomycin tromethamine 3 gram 1 packet PO ONCE 09/24/22 09/24/22 History oral packet furosemide 20 mg tablet 20 mg PO QAM PRN EDEMA/WEIGHT GAIN 09/24/22 09/24/22 History silodosin 4 mg capsule 4 mg PO HS 09/24/22 09/24/22 History Past Med/Surg History Medical History (Updated 09/25/22 @ 03:03 by Carl Stephen MD) Atrial fibrillation PT NOT AWARE BPH (benign prostatic hyperplasia) Cardiomyopathy, dilated, nonischemic EF 40-45% 03/2022 echo Coronary artery calcification Fall 04/17/22 PLACED AT [facility] Wade catheter in place ? still in place/current resident at [facility] Hearing difficulty Hematuria History of COVID-19 05/22/2022- TESTED AT [facility]- RUNNY NOSE, FEVER, PAXLOVID; RESOLVED HTN (hypertension) Hyperlipidemia Kidney stones Lumbar spondylosis Mitral regurgitation MVP (mitral valve prolapse) "MILD" -- follows w/ Dr. Noyola Nocturnal hypoxemia PVC (premature ventricular contraction) follows with [facility] Sleep apnea no device Stenosis, cervical spine Stroke DENIES Urinary retention Weakness Surgical History History of cardiac cath 8- YEARS AGO/NO STENTS History of cataract surgery left cataract 09/29/2018. 2mg versed, 50mcg fentanyl. no issues. History of colonoscopy History of cystoscopy 08/28/22 [facility] History of herniorrhaphy LEFT INGUINAL HERNA History of nasal septoplasty History of prostate surgery CAUTERIZATION History of tonsillectomy History of tooth extraction History of total knee replacement RT/LEFT History of urologic surgery GREENLIGHT LASER Family History Brother Prostate cancer Father Kidney stones Other No family history of adverse response to anesthesia Social History Smoking Status: Never smoker Second Hand Exposure: No; Do You Dip or Chew Tobacco: No; Hx Alcohol Use: No Hx Substance Use: No Preferred Language: [place] Islander Communication Ability: Effective Visual Impairment: Diminished Hearing Ability: Use of Hearing Aid Vmware Administrator Required: No Beliefs That Will Affect Care: None marital status: Current Living Situation: Other Current Living Situation Comment: [facility] current occupational status: retired Feels Safe at Home: Yes Childhood Exposure to Second-Hand Smoke: No Diet: regular caffeine: Yes (2 CUPS OF COFFEE DAILY) Dental Care, Regularly: Yes Physical Activity Frequency: Does not Exercise Physical Activity Frequency Comment: DUE TO PHYSICAL CONDITION Seatbelt Use: always Sunscreen Use: No Assistive Devices: Wheelchair Review of Systems Review of Systems: The patient denies chest pain, palpitations, shortness of breath, dyspnea on exertion, cough, lower extremity swelling, sore throat, fevers, chills, sweats, nausea, vomiting, diarrhea , constipation, blood in stool,lightheadedness, dizziness, headache, memory loss, loss of consciousness, rash, abnormal bruising or bleeding, focal or generalized weakness, numbness or tingling in arms, generalized arthralgias or myalgias, back or neck pain, or night sweats. The review of systems is otherwise negative other than for that already noted above, and at least 10 systems have been reviewed. Physical Exam Physical Exam: The patient is awake, alert and oriented 3, well developed and well nourished, normocephalic and atraumatic, lying in bed and in no acute distress. HEENT--PERRL, EOMI, mucous membranes and oropharynx mildly dry Neck--supple. No JVD. No bruits. Thyroid normal, trachea midline, no adenopathy. Heart--normal S1 and S2. No murmurs, rubs or gallops. Lungs--clear bilaterally, no respiratory distress, no accessory muscle use. Abdomen--normal bowel sounds and soft. Nontender. Mildly distended Extremities--no cyanosis or clubbing. No edema. Dermatologic--normal skin turgor, normal color, no abnormal lymph nodes, no rash. Neurologic--cranial nerves II through XII grossly intact. Rheumatologic--normal range of motion. Psychiatric--normal affect. Results & Data Results & Data Vital Signs (Past 12 Hours) Vital Signs Temp Pulse Resp BP Pulse Ox O2 Del Method 09/24/22 22:53 87 21 140/77 95 Room Air 09/24/22 21:04 94 H 22 116/76 93 Room Air 09/24/22 20:05 38.1 C H 115 H 18 112/58 L 94 Room Air 09/24/22 20:19 101 H 09/24/22 20:22 100 H 18 92 Room Air Laboratory Results Laboratory Results WBC 19.52 K/ul (4.8-10.8) H 09/24/22 20:17 RBC 4.33 M/uL (4.70-6.10) L 09/24/22 20:17 Hgb 12.3 g/dl (14.0-18.0) L 09/24/22 20:17 Hct 37.7 % (42.0-52.0) L 09/24/22 20:17 MCV 87.1 fL (80.0-100.0) 09/24/22 20:17 MCH 28.4 pg (25.0-34.0) 09/24/22 20:17 MCHC 32.6 g/dL (32.0-36.0) 09/24/22 20:17 RDW Std Deviation 43.8 fL (36.4-46.3) 09/24/22 20:17 RDW Coeff of Inderjit 13.9 % (11.5-14.5) 09/24/22 20:17 Plt Count 351 K/uL (130-400) 09/24/22 20:17 MPV 9.1 fL (9.4-12.4) L 09/24/22 20:17 Immature Gran % (Auto) 0.8 % 09/24/22 20:17 Neut % (Auto) 80.2 % 09/24/22 20:17 Lymph % (Auto) 8.0 % 09/24/22 20:17 [place] % (Auto) 9.1 % 09/24/22 20:17 Eos % (Auto) 1.6 % 09/24/22 20:17 Baso % (Auto) 0.3 % 09/24/22 20:17 Neut # (Auto) 15.64 K/uL (1.40-6.50) H 09/24/22 20:17 Lymph # (Auto) 1.56 K/uL (1.2-3.4) 09/24/22 20:17 [place] # (Auto) 1.78 K/uL (0.11-0.59) H 09/24/22 20:17 Eos # (Auto) 0.32 K/uL (0-0.50) 09/24/22 20:17 Baso # (Auto) 0.06 K/uL (0-0.2) 09/24/22 20:17 Immature Gran # (Auto) 0.16 K/uL (0.01-0.20) 09/24/22 20:17 PT 13.5 Seconds (9.0-12.0) H 09/24/22 20:17 INR 1.2 (0.9-1.1) H 09/24/22 20:17 Sodium 135 mmol/L (136-145) L 09/24/22 20:17 Potassium 4.0 mmol/L (3.5-5.1) 09/24/22 20:17 Chloride 103 mmol/L (98-107) 09/24/22 20:17 Carbon Dioxide 23 mmol/L (21-32) 09/24/22 20:17 Anion Gap 9 (3-11) 09/24/22 20:17 BUN 27 mg/dl (6-23) H 09/24/22 20:17 Creatinine 1.26 mg/dl (0.6-1.4) 09/24/22 20:17 Est Cr Clr Drug Dosing Not Reportable 09/24/22 20:17 Est GFR ( Amer) 61.6 ml/min 09/24/22 20:17 Est GFR (Non-Af Amer) 53.1 ml/min 09/24/22 20:17 BUN/Creatinine Ratio 21.4 (10-20) H 09/24/22 20:17 Glucose 223 mg/dl (70-99(Fasting)) H 09/24/22 20:17 POC Glucose 135 mg/dl (70-99) H 09/25/22 00:45 Lactate 1.2 mmol/L (0.4-2.0) 09/24/22 21:15 Calcium 9.0 mg/dl (8.6-10.3) 09/24/22 20:17 Total Bilirubin 1.4 mg/dl (0.2-1.0) H 09/24/22 20:17 AST 12 U/L (13-39) L 09/24/22 20:17 ALT 7 U/L (7-52) 09/24/22 20:17 Alkaline Phosphatase 76 U/L (34-104) 09/24/22 20:17 Total Protein 7.3 gm/dl (6.0-8.3) 09/24/22 20:17 Albumin 3.6 gm/dl (3.4-5.0) 09/24/22 20:17 Globulin 3.7 gm/dl (2.5-4.0) 09/24/22 20:17 Albumin/Globulin Ratio 1.0 (0.9-2) 09/24/22 20:17 Procalcitonin 0.09 ng/ml (0-0.5) 09/24/22 20:17 Urine Color Red 09/24/22 21:33 Urine Appearance Turbid (Clear) A 09/24/22 21:33 Urine pH 7.0 (4.5-7.5) 09/24/22 21:33 Ur Specific [place] 1.020 (1.000-1.030) 09/24/22 21:33 Urine Protein 3+ (Negative) H 09/24/22 21:33 Urine Glucose (UA) Negative (Negative) 09/24/22 21:33 Urine Ketones Negative (Negative) 09/24/22 21:33 Urine Blood 3+ (Negative) H 09/24/22 21:33 Urine Nitrite Positive (Negative) A 09/24/22 21:33 Urine Bilirubin Negative (Negative) 09/24/22 21:33 Urine Urobilinogen Negative (Negative) 09/24/22 21:33 Ur Leukocyte Esterase 3+ (Negative) H 09/24/22 21:33 Urine RBC >30 /hpf (0-4) H 09/24/22 21:33 Urine WBC >30 /hpf (0-5) H 09/24/22 21:33 Ur Epithelial Cells 0-5 /lpf (0-5) 09/24/22 21:33 Urine Bacteria 2+ (Negative) H 09/24/22 21:33 SARS-CoV-2, RNA, NAAT NEGATIVE (NEGATIVE) 09/24/22 22:[address] 09/24/22 20:17 Exam(s): CT C SPINE EXAM: CT Cervical Spine Without Intravenous Contrast CLINICAL HISTORY: Reason for exam: head trauma. TECHNIQUE: Axial computed tomography images of the cervical spine without intravenous contrast. CTDI is 25.96 mGy and DLP is 535.75 mGy-cm. Automated exposure control was utilized for the study. A dose lowering technique was utilized adhering to the principles of ALARA. COMPARISON: None FINDINGS: Bones: Normal alignment. No acute fracture or bony lesion. Disc spaces: No subluxation. Degenerative changes of the spine. Soft tissues: Normal. Other: Atherosclerotic changes of the vasculature. IMPRESSION: No acute traumatic abnormality. Electronically signed by: Dorie Messer M.D. 09/24/22 21:[address] 09/24/22 20:17 Exam(s): CT HEAD Without Contrast EXAM: CT Head Without Intravenous Contrast CLINICAL HISTORY: Reason for exam: Trauma. TECHNIQUE: Axial computed tomography images of the head/brain without intravenous contrast. CTDI is 38.97 mGy and DLP is 702.46 mGy-cm. Automated exposure control was utilized for the study. A dose lowering technique was utilized adhering to the principles of ALARA. COMPARISON: MRI brain on 04/23/2022. CT head on 04/14/2022. FINDINGS: Brain: No acute infarct or hemorrhage identified. No extra-axial fluid collection. No mass effect or midline shift. Scattered areas of hypoattenuation in the supratentorial white matter likely represent chronic small vessel ischemic changes. Ventricles and sulci: Prominence of the ventricles and sulci is likely secondary to cerebral volume loss. Bones: Normal. No bony lesion or acute fracture. Subcutaneous tissues: Normal. Sinuses: Small polyp versus mucous retention cyst in the right maxillary sinus. Mastoid air cells: Normal. Orbits: Bilateral lens implants. Other: Atherosclerotic calcifications in the intracranial vasculature. IMPRESSION: 1. No acute intracranial abnormality. 2. Chronic small vessel ischemic changes and cerebral volume loss. Electronically signed by: Dorie Messer M.D. 09/24/22 21:22 PM Abdomen/Pelvis CT 09/24/22 21:56 Exam(s): CT ABDOMEN + PELVIS With Contrast IV Amt: 90ml optiray 320 EXAM: CT Abdomen and Pelvis With Intravenous Contrast CLINICAL HISTORY: Reason for exam: ab fullness, fever, indwelling cath, WBC 19. TECHNIQUE: Axial computed tomography images of the abdomen and pelvis with intravenous contrast. CTDI is 24.22 mGy and DLP is 1213.31 mGy-cm. Automated exposure control was utilized for the study. A dose lowering technique was utilized adhering to the principles of ALARA. CONTRAST: Patient received 90ml optiray 320 of IV contrast COMPARISON: None FINDINGS: Lung bases: Unremarkable. No mass. No consolidation. Heart: Small pericardial effusion. Mediastinum: Small hiatal hernia. ABDOMEN: Liver: Unremarkable. No mass. Gallbladder and bile ducts: Cholelithiasis. No ductal dilation. Pancreas: Unremarkable. No mass. No ductal dilation. Spleen: Unremarkable. No splenomegaly. Adrenals: Unremarkable. No mass. Kidneys and ureters: Moderate left hydroureteronephrosis. Nonobstructing left renal stones. No ureteral stone on the left. 7 mm stone in the distal right ureter. Minimal fullness of the right renal collecting system. Nonobstructing right renal stones. Stomach and bowel: Diverticulosis. Inflammatory changes of the distal descending colon, compatible with diverticulitis. Moderate stool in the rectum. Evaluation of the stomach is limited by under distention. PELVIS: Appendix: Normal appendix. Bladder: Severely distended bladder with small gas foci and mild gallbladder wall prominence. Please correlate with urinalysis to evaluate for cystitis. 1.1 cm stone in the posterior bladder. Reproductive: Mild prostatomegaly. Probable protrusion of prostatic tissue along the base of the bladder. ABDOMEN and PELVIS: Intraperitoneal space: Unremarkable. No free air. No significant fluid collection. Bones/joints: No acute fracture. No dislocation. Degenerative changes of the spine. Probably chronic superior endplate compression deformities of the T12 and L2 vertebral bodies. Nonspecific lucency in the anterior L5. Soft tissues: Gynecomastia partially visualized. Vasculature: Atherosclerotic changes of the vasculature. No aortic aneurysm or dissection. Lymph nodes: Unremarkable. No enlarged lymph nodes. Other findings: Moderate to severe. IMPRESSION: 1. Diverticulosis. Inflammatory changes of the distal descending colon, compatible with diverticulitis. 2. 1.1 cm stone in the posterior bladder. 3. Severely distended bladder with small gas foci and mild gallbladder wall prominence. Please correlate with urinalysis to evaluate for cystitis. 4. Moderate left hydroureteronephrosis. Nonobstructing left renal stones. No ureteral stone on the left. 5. 7 mm stone in the distal right ureter. Minimal fullness of the right renal collecting system. Nonobstructing right renal stones. 6. Mild prostatomegaly. Probable protrusion of prostatic tissue along the base of the bladder. 7. Cholelithiasis. Electronically signed by: Dorie Messer M.D. 09/24/22 23:08 PM Code Status & VTE Plan Code Status Full code VTE Prophylaxis Plan VTE Prophylaxis will be ordered: Yes PG Care Time/CCT Total # of Minutes Spent Total Time Spent with Patient: Total time spent is greater than 50% in coordination of care (as documented) at patient's floor/unit and/or counseling patient: Coding Level of Care Code 03267 INT INP/OBS CARE 3/75MIN Diagnoses Atrial fibrillation I48.91 BPH w urinary obs/LUTS N40.1; N13.8 Right distal ureteral calculus N20.1 UTI (urinary tract infection) N39.0 Hematuria R31.9 Gait apraxia R48.2 PJ (obstructive sleep apnea) G47.33 Hydronephrosis due to obstruction of bladder N13.30; N32.0 Hydronephrosis due to obstruction of ureter N13.1
[2022-09-25] MEDS ORDERED: GLUCOSE 40% GEL 15 GM TUBE PO PRN (00:36)
[2022-09-25] MEDS ORDERED: MECLIZINE 12.5 MG TAB PO PRN (00:36)
[2022-09-25] MEDS ORDERED: MELATONIN 3 MG TAB PO PRN (00:36)
[2022-09-25] MEDS ORDERED: ONDANSETRON INJ 2 MG/ML 2 ML VIAL IV PRN ×2 (00:36→14:18)
[2022-09-25] MEDS ORDERED: DEXTROSE 50% 50 ML SYRINGE IV PRN (00:36)
[2022-09-25] MEDS ORDERED: CARBOHYDRATES FOR HYPOGLYCEMIA PO PRN (00:36)
[2022-09-25] MEDS ORDERED: NSS + 20MEQ KCL 20 MEQ/1,000 ML BAG IV SCH (00:36)
[2022-09-25] MEDS ORDERED: GLUCAGON FOR INJ 1 MG VIAL SQ PRN (00:36)
[2022-09-25] MEDS ORDERED: GLUCOSE 10 TAB/TUBE PO PRN (00:36)
[2022-09-25] MEDS ORDERED: ACETAMINOPHEN 325 MG TAB PO PRN (00:36)
[2022-09-25] MEDS ORDERED: IPRATROPIUM BROMIDE NASAL SPRAY 0.06% 15ML NAE PRN (00:40)
[2022-09-25] MEDS ORDERED: FAMOTIDINE 10 MG TABLET PO PRN (00:42)
[2022-09-25 06:17] LABS: Basophils # (auto) 0.08 K/uL (0-0.2); Basophils % (auto) 0.5 %; Eosinophils % (auto) 1.8 %; Hematocrit (blood only) 31.1 % (42.0-52.0); Hemoglobin 10.2 g/dl (14.0-18.0); Immature Granulocytes # (auto) 0.11 K/uL (0.01-0.20); Immature Granulocytes % (auto) 0.6 %; Lymphocytes # (auto) 1.41 K/uL (1.2-3.4); Lymphocytes % (auto) 8.3 %; Mean Corpuscular Hemoglobin 28.4 pg (25.0-34.0); Mean Corpuscular Hgb Conc 32.8 g/dL (32.0-36.0); Mean Corpuscular Volume 86.6 fL (80.0-100.0); Mean Platelet Volume 9.2 fL (9.4-12.4); Monocytes # (auto) 2.02 K/uL (0.11-0.59); Monocytes % (auto) 11.9 %; Neutrophils # (auto) 13.02 K/uL (1.40-6.50); Neutrophils % (auto) 76.9 %; Platelet Count 308 K/uL (130-400); RDW Standard Deviation 44.5 fL (36.4-46.3); Red Blood Count 3.59 M/uL (4.70-6.10); White Blood Count 16.94 K/ul (4.8-10.8)
--- NOTE | 2022-09-25 07:37 | Urology Consultation ---
I have discussed Mr. Frost's case with ED Buck and agree with the above documentation. He has evidence of urinary tract infection and obstructing stone. We should plan to proceed to the OR for cystoscopy, right retrograde pyelogram and right ureteral stent placement. We discussed the risks of the procedure including bleeding, infection, injury to urinary tract, inability to place stent. He expressed understanding and willingness to proceed with surgery. Date of Consultation September 25, 2022 Assessment & Plan (1) Hydronephrosis due to obstruction of ureter: (2) Hematuria: (3) UTI (urinary tract infection): (4) Right distal ureteral calculus: Plan 82-year-old male with history of stones, BPH and urinary retention managed with indwelling Wade catheter admitted after fall and suspected UTI. CT A/P showed a 1.1 cm stone in the posterior bladder, severely distended bladder with small gas foci, moderate left hydroureteronephrosis, no left ureteral stones. A 7 mm calculus in the distal right ureteral with mild fullness of the right renal collecting system, additional nonobstructing right renal stones. Wade was exchanged in the ER and CBI was started due to hematuria per admitting notes. Febrile yesterday on arrival. Labs today show - WBC 16.94, hemoglobin 10.2, creatinine 1.22. Urine culture 09/22/2022 grew out Acinetobacter baumannii/haemol, sensitive to IV Cefepime Urine culture 09/24 prelim gram-negative bacilli Blood cultures 09/24 pending Continue broad-spectrum antibiotics and narrow per sensitivity data when available. CBI was clamped during my exam, nursing made aware. Can titrate CBI as appropriate. Okay to gently hand irrigate as needed for clogged catheter/obstruction, suprapubic discomfort. Discussed recommendation for cystoscopy and right ureteral stent placement today in the context of urinary tract infection, leukocytosis and fever. Patient is agreeable. All questions answered. Findings reviewed with Dr. Mejia. Given his suspected urinary tract infection in the context of an obstructing right ureteral stone, will proceed with OR for cystoscopy, Right retrograde pyelogram and Right stent placement. Risks and benefits to be reviewed with patient by Dr. Mejia. OR notified. Will cover with scheduled IV cefepime preoperatively. Keep NPO for procedure. History of Present Illness Attending Physician: Kishor Jaeger MD History of Present Illness This is an 82-year-old male with past medical history of dementia, hypertension, severe obstructive sleep apnea, cardiomyopathy, CAD, hyperlipidemia, systolic heart failure, kidney stones, BPH, and urinary retention who presented to the emergency department from his nursing facility on 09/25/22 after a fall. Urology is consulted indwelling Wade, gram negative bacilli. He is known to our service, now follows with Dr. Mejia. History of stones, BPH with LUTS and urinary retention, pending TURP. On arrival to ED, temperature was 38.1, hemodynamically stable. Lab work showed a creatinine of 1.26, WBC 19.52, hemoglobin 10.2. UA notable for 3+ protein, 3+ blood, positive nitrates, 3+ leukocyte esterase, >30 RBC, >30 WBC, 2+ bacteria. Urine and blood cultures obtained and pending. He was started on IV cefepime. CT abdomen and pelvis obtained and showed a 1.1 cm stone in the posterior bladder, severely distended bladder with small gas foci, moderate left hydroureteronephrosis, nonobstructing left renal stones, no left ureteral stones. A 7 mm calculus in the distal right ureteral with mild fullness of the right renal collecting system, additional nonobstructing right renal stones. Per notes, Wade was exchanged in the ER. Febrile yesterday, but afebrile overnight. Labs today show WBC 16.94, hemoglobin 10.2, creatinine 1.22. Urine culture 09/22/2022 grew out Acinetobacter baumannii/haemol, sensitive to cefepime Urine culture 09/24 prelim gram-negative bacilli Blood cultures 09/24 pending Patient seen and examined at bedside this morning. He is awake, alert and sitting up in bed. Denies abdominal or flank pain. He feels much better since Wade catheter was exchanged yesterday. Wade patent and draining clear to light pink urine with CBI on slow drip. CBI clamped, nursing made aware. No nausea or vomiting. Denies fever or chills at present. No chest pain or shortness of breath. He has had nothing to eat or drink since prior to midnight. He was made n.p.o. and nursing is aware. No has no additional concerns at this time. Allergies Allergy/AdvReac Type Severity Reaction Status Date / Time Penicillins Allergy Severe Dizziness Verified 09/24/22 21:58 & SHORTNESS OF BREATH Home Medications Medication Instructions Recorded Confirmed Type sacubitril 49 mg-valsartan 51 mg 1 tab PO BID #60 tabs 12/12/20 09/24/22 Rx tablet (Entresto) metoprolol succinate 25 mg 25 mg PO BID 04/14/22 09/24/22 History tablet,extended release 24 hr meclizine 12.5 mg tablet 12.5 mg PO Q6H PRN 04/24/22 09/24/22 Rx dizziness/vertigo #20 tabs melatonin 3 mg tablet 3 mg PO HS PRN sleep #30 tabs 04/24/22 09/24/22 Rx apixaban 5 mg tablet (Eliquis) 5 mg PO BID 06/20/22 09/24/22 History acetaminophen 325 mg capsule 650 mg PO Q4H PRN PAIN/FEVER 09/05/22 09/24/22 History (Tylenol) aspirin 81 mg tablet,delayed 81 mg PO QAM 09/05/22 09/24/22 History release cetirizine 5 mg tablet 5 mg PO QAM 09/05/22 09/24/22 History famotidine-Ca carb-mag hydrox 10 1 tab PO BID PRN Acid Reflux 09/05/22 09/24/22 History mg-800 mg-165 mg chewable tablet (Pepcid Complete) finasteride 5 mg tablet 5 mg PO QAM 09/05/22 09/24/22 History furosemide 20 mg tablet 20 mg PO QAM 09/05/22 09/24/22 History ipratropium bromide 21 mcg (0.03 2 spray intranasal TID PRN Runny 09/05/22 09/24/22 History %) nasal spray Nose simvastatin 40 mg tablet 40 mg PO QPM 09/05/22 09/24/22 History nitrofurantoin 100 mg PO Q12H 7 days #14 caps 09/08/22 09/24/22 Rx monohydrate/macrocrystals 100 mg capsule (Macrobid) fosfomycin tromethamine 3 gram 1 packet PO ONCE 09/24/22 09/24/22 History oral packet furosemide 20 mg tablet 20 mg PO QAM PRN EDEMA/WEIGHT GAIN 09/24/22 09/24/22 History silodosin 4 mg capsule 4 mg PO HS 09/24/22 09/24/22 History Patient History Medical History Atrial fibrillation PT NOT AWARE BPH (benign prostatic hyperplasia) Cardiomyopathy, dilated, nonischemic EF 40-45% 03/2022 echo Coronary artery calcification Fall 04/17/22 PLACED AT [facility] FOR RE[facility] Wade catheter in place ? still in place/current resident at [place] Hearing difficulty Hematuria History of COVID-19 05/22/2022- TESTED AT [facility]- RUNNY NOSE, FEVER, PAXLOVID; RESOLVED HTN (hypertension) Hyperlipidemia Kidney stones Lumbar spondylosis Mitral regurgitation MVP (mitral valve prolapse) "MILD" -- follows w/ Dr. Noyola Nocturnal hypoxemia PVC (premature ventricular contraction) follows with [facility] Sleep apnea no device Stenosis, cervical spine Stroke DENIES Urinary retention Weakness Surgical History History of cardiac cath 8- YEARS AGO/NO STENTS History of cataract surgery left cataract 09/29/2018. 2mg versed, 50mcg fentanyl. no issues. 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 Family History Brother Prostate cancer Father Kidney stones Other No family history of adverse response to anesthesia Social History Smoking Status: Never smoker Second Hand Exposure: No; Do You Dip or Chew Tobacco: No; Hx Alcohol Use: No Hx Substance Use: No Preferred Language: Turkmen Communication Ability: Impaired Visual Impairment: Diminished Hearing Ability: Use of Hearing Aid Freedom Of Information Officer Required: No Beliefs That Will Affect Care: None marital status: Current Living Situation: Other Current Living Situation Comment: [place] current occupational status: retired Feels Safe at Home: Yes Childhood Exposure to Second-Hand Smoke: No Diet: regular caffeine: Yes (2 CUPS OF COFFEE DAILY) Dental Care, Regularly: Yes Physical Activity Frequency: Does not Exercise Physical Activity Frequency Comment: DUE TO PHYSICAL CONDITION Seatbelt Use: always Sunscreen Use: No Assistive Devices: Wheelchair Review of Systems Review of Systems: All systems reviewed & are unremarkable except as noted in HPI & below Physical Exam Constitutional: well developed and well nourished; no acute distress Eyes: no scleral abnormality Neck: trachea midline Respiratory: normal respiratory effort; no respiratory distress and no labored breathing Cardiovascular: Extremities: no pedal edema Gastrointestinal (Abdomen): Inspection/Auscultation: abdomen normal to inspection; abdomen not distended Percussion/Palpation: abdomen soft; abdomen nontender Musculoskeletal: Head/Neck/Chest: normocephalic Neurologic: moves all extremities and awake Psychiatric: Orientation: alert and oriented to person Genitourinary: Wade patent and draining clear to light pink urine with CBI on slow, CBI clamped Results & Data Vital Signs (Past 12 Hours) Vital Signs Temp Pulse Pulse Resp BP BP Pulse Ox 09/25/22 07:21 87 09/25/22 04:12 36.7 C 92 H 20 96/54 L 95 09/25/22 00:30 123 H 09/25/22 00:30 36.5 C 112 H 20 153/80 H 95 09/24/22 23:49 37.1 C 91 H 20 122/71 96 09/24/22 22:53 87 21 140/77 95 09/24/22 21:04 94 H 22 116/76 93 09/24/22 20:05 38.1 C H 115 H 18 112/58 L 94 09/24/22 20:19 101 H 09/24/22 20:22 100 H 18 92 O2 Del Method 09/25/22 07:21 09/25/22 04:12 Room Air 09/25/22 00:30 09/25/22 00:30 Room Air 09/24/22 23:49 Room Air 09/24/22 22:53 Room Air 09/24/22 21:04 Room Air 09/24/22 20:05 Room Air 09/24/22 20:19 09/24/22 20:22 Room Air PG Care Time/CCT Total # of Minutes Spent Total Time Spent with Patient: Total time spent is greater than 50% in coordination of care (as documented) at patient's floor/unit and/or counseling patient: Coding Level of Care Code 00506 INT INP/OBS CARE 2/55MIN Diagnoses Hydronephrosis due to obstruction of ureter N13.1 Hematuria R31.9 UTI (urinary tract infection) N39.0 Right distal ureteral calculus N20.1 Time Spent (min) 60
[2022-09-25] MEDS: CEFEPIME 2,000 MG in SYRINGE 0 ML IV SCH ×2 (07:40→21:18)
[2022-09-25 08:24] LABS: Estimated Average Glucose 137 mg/dl; Hemoglobin A1C 6.4 % (4.5-5.6)
[2022-09-25 08:49] LABS: Albumin Level 2.9 gm/dl (3.4-5.0); Bilirubin,Total 1.7 mg/dl (0.2-1.0); Calcium 8.4 mg/dl (8.6-10.3); Magnesium 1.7 mg/dl (1.7-2.4); Potassium 3.9 mmol/L (3.5-5.1)
[2022-09-25] MEDS: INSULIN ASPART PER UNIT CHARGE SC SCH ×4 (08:50→21:19)
[2022-09-25 08:55] LABS: BUN Creatinine Ratio 21.3 (10-20); Creatinine Clr Calc Pharmacy 51.9 ml/min; Est GFR (Non-African American) 55.3 ml/min; Total Protein 5.9 gm/dl (6.0-8.3)
--- NOTE | 2022-09-25 08:59 | Hospitalist Progress Note ---
Date of Service September 25, 2022 Assessment & Plan (1) UTI (urinary tract infection): Plan: complicated UTI, has bladder stone, 7mm right ureteral stone, cystitis seen on CT Concern for bladder outlet obstruction follow-up/repeat TURP has been scheduled for about 2 weeks from now Hold Eliquis and aspirin Urinalysis from 09/22/2022 as outpatient shows gram-negative bacilli acinetobacter Baumannii, continues Gr NEg bacilli >[id number] Continue empiric cefepime Hold nitrofurantoin and fosfomycin Tamsulosin and finasteride Consult urology, cysto stent and stone removal 09/25, for Hematuria has [address] cath (2) Atrial fibrillation: Plan: Atrial fibrillation/hypertension/HFrEF/MVP/PVC history- Hold apixaban and aspirin as noted Continue Entresto and metoprolol succinate Hold furosemide (3) Cardiomyopathy, dilated, nonischemic: Plan: compensated, last EF 40-45%, on Entresto, metoprolol and typically furosemide (4) PJ (obstructive sleep apnea): Admission and Anticipated Discharge Date Admission Date: September 24, 2022 Subjective Patient seen postprocedure he is angry about feeling that things were done did not want to have done but however he does recall being consented by Dr. Mejia. Patient had right ureteral stent placed on 09/26/2019 Physical Exam Physical Exam: Patient was seen in no distress he may have been having some effects of anesthesia is a bit anxious he is no physical duress of any kind Her exam is regular lungs are clear abdomen is NABS is no CV angle tenderness Results & Data Results & Data Vital Signs (Past 12 Hours) Vital Signs Temp Pulse Pulse Resp BP BP Pulse Ox 09/25/22 07:58 98.1 F 85 18 99/59 L 96 09/25/22 07:21 87 09/25/22 04:12 98.1 F 92 H 20 96/54 L 95 09/25/22 00:30 123 H 09/25/22 00:30 97.7 F 112 H 20 153/80 H 95 09/24/22 23:49 98.8 F 91 H 20 122/71 96 09/24/22 22:53 87 21 140/77 95 09/24/22 21:04 94 H 22 116/76 93 O2 Del Method 09/25/22 07:58 Room Air 09/25/22 07:21 09/25/22 04:12 Room Air 09/25/22 00:30 09/25/22 00:30 Room Air 09/24/22 23:49 Room Air 09/24/22 22:53 Room Air 09/24/22 21:04 Room Air Laboratory Results Reviewed CBC reviewed chemistry reviewed coagulation PG Care Time/CCT Total # of Minutes Spent Total Time Spent with Patient: Total time spent is greater than 50% in coordination of care (as documented) at patient's floor/unit and/or counseling patient: Coding Level of Care Code 37417 SUB INP/OBS CARE 235MIN Diagnoses UTI (urinary tract infection) N39.0 Atrial fibrillation I48.91 Cardiomyopathy, dilated, nonischemic I42.0 PJ (obstructive sleep apnea) G47.33
[2022-09-25] MEDS: FINASTERIDE 5 MG TAB PO SCH (09:38)
[2022-09-25] MEDS: CETIRIZINE HCL 10 MG TABLET PO SCH (09:38)
[2022-09-25] MEDS: VALSARTAN/SACUBITRIL 51/49 MG TAB PO SCH ×2 (09:38→21:18)
[2022-09-25] MEDS: METOPROLOL SUCC 25MG EXT REL TAB PO SCH ×2 (09:38→21:18)
--- NOTE | 2022-09-25 09:50 | Anesthesiology Consultation ---
Date of Service September 25, 2022 Assessment & Plan (1) Encounter for pre-operative examination: Chart Review Chart Review: Acceptable Risk for Surgery History Surgery Operation Date: 09/25/22 12:40 Proposed Procedures p Cystoscopy, Retrograde Pyelogram, Right Ureteral Stent Placement - Balta Mejia MD Height/Weight Height: 5 ft 9 in Weight: 87 kg Allergies Allergy/AdvReac Type Severity Reaction Status Date / Time Penicillins Allergy Severe Dizziness Verified 09/24/22 21:58 & SHORTNESS OF BREATH Medications Home Medications Medication Instructions Recorded Confirmed Last Taken sacubitril 49 mg-valsartan 51 mg 1 tab PO BID #60 tabs 12/12/20 09/24/22 09/15/22 19:30 tablet (Entresto) metoprolol succinate 25 mg 25 mg PO BID 04/14/22 09/24/22 09/15/22 19:30 tablet,extended release 24 hr meclizine 12.5 mg tablet 12.5 mg PO Q6H PRN 04/24/22 09/24/22 Unknown dizziness/vertigo #20 tabs melatonin 3 mg tablet 3 mg PO HS PRN sleep #30 tabs 04/24/22 09/24/22 Unknown apixaban 5 mg tablet (Eliquis) 5 mg PO BID 06/20/22 09/24/22 09/15/22 19:30 acetaminophen 325 mg capsule 650 mg PO Q4H PRN PAIN/FEVER 09/05/22 09/24/22 19:30 (Tylenol) aspirin 81 mg tablet,delayed 81 mg PO QAM 09/05/22 09/24/22 09/15/22 08:00 release cetirizine 5 mg tablet 5 mg PO QAM 09/05/22 09/24/22 09/15/22 08:00 famotidine-Ca carb-mag hydrox 10 1 tab PO BID PRN Acid Reflux 09/05/22 09/24/22 09/15/22 13:00 mg-800 mg-165 mg chewable tablet (Pepcid Complete) finasteride 5 mg tablet 5 mg PO QAM 09/05/22 09/24/22 09/15/22 08:00 furosemide 20 mg tablet 20 mg PO QAM 09/05/22 09/24/22 Unknown ipratropium bromide 21 mcg (0.03 2 spray intranasal TID PRN Runny 09/05/22 09/24/22 09/15/22 17:00 %) nasal spray Nose simvastatin 40 mg tablet 40 mg PO QPM 09/05/22 09/24/22 09/15/22 19:30 nitrofurantoin 100 mg PO Q12H 7 days #14 caps 09/08/22 09/24/22 Unknown monohydrate/macrocrystals 100 mg capsule (Macrobid) fosfomycin tromethamine 3 gram 1 packet PO ONCE 09/24/22 09/24/22 Unknown oral packet furosemide 20 mg tablet 20 mg PO QAM PRN EDEMA/WEIGHT GAIN 09/24/22 09/24/22 Unknown silodosin 4 mg capsule 4 mg PO HS 09/24/22 09/24/22 Unknown Active Medications Generic Name Dose Route Start Last Admin Trade Name Freq PRN Reason Stop Dose Admin Cetirizine HCl 10 mg 09/25/22 09:00 09/25/22 09:38 Cetirizine Hcl 10 Mg Tablet PO 10/25/22 08:59 10 mg QAM PAULA Administration Finasteride 5 mg 09/25/22 09:00 09/25/22 09:38 Finasteride 5 Mg Tab PO 10/25/22 08:59 5 mg QAM PAULA Administration Potassium Chloride/Sodium Chloride 20 meq in 1,000 mls @ 60 mls/hr 09/25/22 00:36 09/25/22 01:00 Normal Saline W/20 Meq Kcl IV 09/25/22 17:15 60 mls/hr .[id number] PAULA Administration Cefepime HCl 2,000 mg/ Syringe 20 mls @ 5 mls/min 09/25/22 08:00 09/25/22 07:40 IV 10/05/22 07:59 5 mls/min Q12H PAULA Administration Protocol Insulin Aspart 0 units 09/25/22 07:30 09/25/22 08:50 Insulin Aspart Per Unit Charge SC 10/25/22 07:29 Not Given ACHS PAULA Ipratropium [place] 2 sprays 09/25/22 00:40 09/25/22 09:38 Ipratropium [place] [facility] Nasal [place] 0.06% 15ml MILLIE 10/25/22 00:39 2 sprays TID PRN Administration Runny Nose Meclizine HCl 12.5 mg 09/25/22 00:36 09/25/22 09:38 Meclizine 12.5 Mg Tab PO 10/25/22 00:35 12.5 mg Q6H PRN Administration dizziness/vertigo Metoprolol Succinate 25 mg 09/25/22 09:00 09/25/22 09:38 Metoprolol Succ 25mg Ext Rel Tab PO 10/25/22 08:59 25 mg BID PAULA Administration Sacubitril/Valsartan 1 tab 09/25/22 09:00 09/25/22 09:38 Valsartan/Sacubitril 51/49 Mg Tab PO 10/25/22 08:59 1 tab BID PAULA Administration Past Medical History Medical History Atrial fibrillation PT NOT AWARE BPH (benign prostatic hyperplasia) Cardiomyopathy, dilated, nonischemic EF 40-45% 03/2022 echo Coronary artery calcification Fall 04/17/22 PLACED AT [facility] FOR [facility] Wade catheter in place ? still in place/current resident at [place] Hearing difficulty Hematuria History of COVID-19 05/22/2022- TESTED AT [facility]- RUNNY NOSE, FEVER, PAXLOVID; RESOLVED HTN (hypertension) Hyperlipidemia Kidney stones Lumbar spondylosis Mitral regurgitation MVP (mitral valve prolapse) "MILD" -- follows w/ Dr. Noyola Nocturnal hypoxemia PVC (premature ventricular contraction) follows with [facility] Sleep apnea no device Stenosis, cervical spine Stroke DENIES Urinary retention Weakness Past Family History Family History Brother Prostate cancer Father Kidney stones Other No family history of adverse response to anesthesia Past Surgical History Surgical History History of cardiac cath 8- YEARS AGO/NO STENTS History of cataract surgery left cataract 09/29/2018. 2mg versed, 50mcg fentanyl. no issues. 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 Social History Smoking Status: Never smoker Do You Dip or Chew Tobacco: No Hx Alcohol Use: No Alcohol type: beer alcohol intake frequency: a few times a month Hx Substance Use: No substance use type: does not use Physical Exam Vital Signs Last Vital Signs Temp 36.7 C 09/25/22 07:58 Pulse 80 09/25/22 09:35 Resp 18 09/25/22 09:35 BP 114/62 09/25/22 09:35 Pulse Ox 96 09/25/22 09:35 O2 Del Method Room Air 09/25/22 09:35 Testing Laboratory Results 09/25/22 05:56 09/25/22 05:56 PT 13.5 Seconds (9.0-12.0) H 09/24/22 20:17 INR 1.2 (0.9-1.1) H 09/24/22 20:17 Hemoglobin A1c 6.4 % (4.5-5.6) H 09/25/22 05:56 Urine Color Red 09/24/22 21:33 Urine Appearance Turbid (Clear) A 09/24/22 21:33 Urine pH 7.0 (4.5-7.5) 09/24/22 21:33 Ur Specific [place] 1.020 (1.000-1.030) 09/24/22 21:33 Urine Protein 3+ (Negative) H 09/24/22 21:33 Urine Glucose (UA) Negative (Negative) 09/24/22 21:33 Urine Ketones Negative (Negative) 09/24/22 21:33 Urine Nitrite Positive (Negative) A 09/24/22 21:33 Ur Leukocyte Esterase 3+ (Negative) H 09/24/22 21:33 Urine RBC >30 /hpf (0-4) H 09/24/22 21:33 Urine WBC >30 /hpf (0-5) H 09/24/22 21:33 Ur Epithelial Cells 0-5 /lpf (0-5) 09/24/22 21:33 09/25/22 09/25/22 07:54 00:45 POC Glucose 107 H 135 H Electrocardiogram Findings: + AFIB @ (104) Echocardiogram Date: 04/18/22 EF: 40-45% Valvular Disease: + AI (moderate) and + MR (mild) global hypokinesis
[2022-09-25] MEDS: ACETAMINOPHEN 325 MG TAB PO PRN ×2 (11:48→19:43)
[2022-09-25] MEDS ORDERED: LIDOCAINE 2% 2 ML VIAL/AMP(20MG/ML) INFIL ONE (14:04)
[2022-09-25] MEDS ORDERED: fentaNYL citrate PF 100 MCG/2 ML VIAL ONE (14:04)
[2022-09-25] MEDS ORDERED: PROPOFOL IV EMULSION 10 MG/ML 20 ML VIAL IV ONE ×2 (14:04→15:18)
[2022-09-25] MEDS ORDERED: fentaNYL citrate PF 100 MCG/2 ML VIAL IV PRN (14:18)
[2022-09-25] MEDS ORDERED: ATROPINE SULFATE 0.1 MG/ML 10ML SYR IV PRN (14:18)
[2022-09-25] MEDS ORDERED: PHENYLEPHRINE 100MCG/ML 5ML SYR IV PRN (14:18)
--- NOTE | 2022-09-25 15:32 | Operative Report ---
[facility] Post Operative Report Pre & Post Diagnosis Operation Date: 09/25/22 12:40 Pre-Op Diagnosis: 1) Hydronephrosis due to obstruction of ureter: (2) Hematuria: (3) UTI (urinary tract infection): (4) Right distal ureteral calculus: Post-Op Diagnosis: 1) Hydronephrosis due to obstruction of ureter: (2) Hematuria: (3) UTI (urinary tract infection): (4) Right distal ureteral calculus: I identified the patient and participated in the time-out.: Yes Procedure Operation Date: 09/25/22 12:40 Actual Procedures p Cystoscopy, Right Ureteral Stent Placement - Balta Mejia MD Surgeon Balta Mejia MD Manager Project Management Jett Lucas PA-C Estimated Blood Loss 5 Findings See Below distorted bladder anatomy with right UO on posterior wall of bladder, successful right ureteral stent placement. Specimens None Drains 6 [place]ian by 26 cm double-J ureteral stent in the right ureter Anesthesia Type MAC Complications none Disposition Accompanied Patient To Recovery: Yes Disposition: Recovery Room Indications This is an 82-year-old male with concern for urinary tract infection and a right ureteral stone. He is being brought to the OR for right ureteral stent placement. Description of Procedure The patient was identified in the holding area and informed consent was confirmed. He was marked on the right side, then was taken to the operating room where anesthesia was initiated. He was placed in the dorsal lithotomy pos ition with all pressure points appropriately padded. He was prepped and draped in the usual sterile fashion and a preoperative timeout was performed. A well-lubricated cystoscope was inserted per urethra and panendoscopy was performed. The pendulous urethra was normal with no strictures or mucosal abnormalities. His prostate was significantly enlarged with somewhat distorted by lobar growth. His bladder was enlarged as well and heavily trabeculated with small cellules. Visualization was somewhat challenging due to intermittent bleeding from the prostate. Upon initial inspection, his trigonal ridge was not immediately evident. Ureteral orifices were not in the normal position. There was a stone within the dependent portion of the bladder. I carefully surveyed the bladder attempting to identify the right ureteral orifice. I probed several looks within the bladder wall with a 0.038 inch zip wire. Eventually the ureteral orifice was identified on essentially the posterior wall of the bladder to the left of the midline, on the back of a ridge. The ureteral orifice was cannulated using a 5 [place]ian open-ended catheter and the zip wire. The wire was advanced up to the kidney under fluoroscopic guidance. There were shadows conspicuous for stones up in the kidney. Over the wire, a 6 [place]ian x 26 cm double-J ureteral stent was advanced. When the wire was removed, there was a good curl in the kidney under fluoroscopic guidance. A curl was visualized in the bladder with the cystoscope. All instrumentation was removed. A 20 [place]ian coud catheter was placed per urethra. 20 mL were used to inflate the balloon. The catheter was attached to gravity drainage. The patient was then awakened from anesthesia and was brought to the PACU in stable condition. Of note, Jett Lucas PA-C acted as surgery assistant during the procedure. She provided assistance with cystoscopy and stent placement. I attest to the content of the Intraoperative Record and any orders documented therein. Any exceptions are noted below.
--- NOTE | 2022-09-25 16:07 | Anesthesiology Progress Note ---
Date of Service September 25, 2022 Anesthesia Post Procedure Vital Signs Vital Signs: Temp Pulse Pulse Pulse Resp BP BP 09/25/22 15:50 36.8 C 84 18 116/69 09/25/22 15:40 77 18 124/77 09/25/22 15:33 36.3 C L 82 16 116/58 L 09/25/22 07:45 09/25/22 12:17 38 C H 88 20 100/54 L 09/25/22 11:30 38.2 C H 74 18 122/68 09/25/22 09:35 80 18 114/62 09/25/22 07:58 36.7 C 85 18 99/59 L 09/25/22 07:21 87 09/25/22 04:12 36.7 C 92 H 20 96/54 L 09/25/22 00:30 123 H 09/25/22 00:30 36.5 C 112 H 20 153/80 H 09/24/22 23:49 37.1 C 91 H 20 122/71 09/24/22 22:53 87 21 140/77 09/24/22 21:04 94 H 22 116/76 09/24/22 20:05 38.1 C H 115 H 18 112/58 L 09/24/22 20:19 101 H 09/24/22 20:22 100 H 18 Pulse Ox O2 Del Method O2 Flow Rate 09/25/22 15:50 94 Room Air 09/25/22 15:40 94 Room Air 09/25/22 15:33 97 Oxymask 6 09/25/22 07:45 Room Air 09/25/22 12:17 95 Room Air 09/25/22 11:30 95 Room Air 09/25/22 09:35 96 Room Air 09/25/22 07:58 96 Room Air 09/25/22 07:21 09/25/22 04:12 95 Room Air 09/25/22 00:30 09/25/22 00:30 95 Room Air 09/24/22 23:49 96 Room Air 09/24/22 22:53 95 Room Air 09/24/22 21:04 93 Room Air 09/24/22 20:05 94 Room Air 09/24/22 20:19 09/24/22 20:22 92 Room Air Transfer of Care Handoff Completed per policy Notes Mental Status: alert / awake / arousable Patient Amnestic to Procedure: Yes Nausea / Vomiting: adequately controlled Pain: adequately controlled Airway Patency, RR, SpO2: stable & adequate BP & HR: stable & adequate Hydration State: stable & adequate Anesthetic Complications: no major complications apparent
--- NOTE | 2022-09-25 16:23 | Fluoroscopy Report ---
INTRAOPERATIVE RADIOGRAPHS CLINICAL HISTORY: Right ureteral stent placement. Fluoro time: 7 seconds Ka,r: 2.11 mGy FINDINGS: 3 spot fluoroscopic views of the right abdomen are correlated with abdominal CT dated 023. The initial images show a wire injecting over the right renal pelvis. There are large right jagruti l calculi. The final image shows the proximal end of a right ureteral stent in appropriate position. IMPRESSION: Intraoperative images from a right ureteral stent placement procedure as above. Electronically signed by: Horacio Szymanski M.D. 09/25/2022 4:22 PM
[2022-09-25] MEDS ORDERED: MAGNESIUM SULFATE / D5W 1 GM/100 ML BAG IV ONE (19:00)
[2022-09-25] MEDS: TAMSULOSIN HCL 0.4 MG CAP PO SCH (21:18)
[2022-09-25] MEDS: SIMVASTATIN 40 MG TAB PO SCH (21:19)
[2022-09-26] MEDS: METOPROLOL SUCC 25MG EXT REL TAB PO SCH ×2 (07:48→20:32)
[2022-09-26] MEDS: CETIRIZINE HCL 10 MG TABLET PO SCH (07:48)
[2022-09-26] MEDS: VALSARTAN/SACUBITRIL 51/49 MG TAB PO SCH ×2 (07:48→20:32)
[2022-09-26] MEDS: FINASTERIDE 5 MG TAB PO SCH (07:49)
[2022-09-26] MEDS: CEFEPIME 2,000 MG in SYRINGE 0 ML IV SCH ×2 (07:49→20:31)
[2022-09-26 08:04] LABS: Basophils # (auto) 0.07 K/uL (0-0.2); Basophils % (auto) 0.9 %; Eosinophils # (auto) 0.26 K/uL (0-0.50); Eosinophils % (auto) 3.2 %; Hematocrit (blood only) 32.4 % (42.0-52.0); Hemoglobin 10.4 g/dl (14.0-18.0); Immature Granulocytes # (auto) 0.05 K/uL (0.01-0.20); Immature Granulocytes % (auto) 0.6 %; Lymphocytes # (auto) 0.86 K/uL (1.2-3.4); Lymphocytes % (auto) 10.7 %; Mean Corpuscular Hemoglobin 28.5 pg (25.0-34.0); Mean Corpuscular Hgb Conc 32.1 g/dL (32.0-36.0); Mean Corpuscular Volume 88.8 fL (80.0-100.0); Mean Platelet Volume 9.3 fL (9.4-12.4); Monocytes # (auto) 0.98 K/uL (0.11-0.59); Monocytes % (auto) 12.2 %; Neutrophils # (auto) 5.84 K/uL (1.40-6.50); Neutrophils % (auto) 72.4 %; Platelet Count 267 K/uL (130-400); RDW Coefficient of Variation 14.1 % (11.5-14.5); RDW Standard Deviation 45.7 fL (36.4-46.3); Red Blood Count 3.65 M/uL (4.70-6.10); White Blood Count 8.06 K/ul (4.8-10.8)
[2022-09-26 08:20] LABS: Albumin Level 2.9 gm/dl (3.4-5.0); BUN Creatinine Ratio 19.2 (10-20); Bilirubin,Total 1.3 mg/dl (0.2-1.0); Calcium 8.7 mg/dl (8.6-10.3); Creatinine Clr Calc Pharmacy 52.7 ml/min; Est GFR (African American) 65.3 ml/min; Est GFR (Non-African American) 56.4 ml/min; Potassium 4.2 mmol/L (3.5-5.1); Total Protein 5.9 gm/dl (6.0-8.3)
[2022-09-26] MEDS: INSULIN ASPART PER UNIT CHARGE SC SCH ×4 (08:31→20:31)
[2022-09-26] MEDS: ACETAMINOPHEN 325 MG TAB PO PRN (08:32)
--- NOTE | 2022-09-26 09:05 | Urology Progress Note ---
Date of Service September 26, 2022 Assessment & Plan (1) Right distal ureteral calculus: (2) UTI (urinary tract infection): (3) BPH w urinary obs/LUTS: Plan: 82-year-old male with history of stones, BPH and urinary retention managed with indwelling Wade catheter admitted after fall and suspected UTI; CT imaging on arrival notable for a 7 mm distal right ureteral calculus with hydronephrosis. - Pt POD#1 s/p cystoscopy and right ureteral stent placement with Dr. Mejia. - Patient subjectively doing well. - Febrile this am (T 38.2), lab work reviewed - creatinine 1.20, WBC improved to 8.06 (previously 16.94). - Tolerating right ureteral stent with minimal bother. - Urine culture 6/5 grew out Acinetobacter baumannii/haemol, sensitive to IV Cefepime. - Urine culture 6/7 prelim gram-negative bacilli. - Blood cultures 6/7 no growth x 24 hours. - Continue broad spectrum antibiotics and narrow per sensitivity data when available. - He is pending TURP with Dr. Mejia on 10/16/2022. - Recommend continuation of appropriate antibiotic per sensitivity data until pr ocedure date. - Maintain Wade catheter. - Continue supportive care, antibiotics and medical management per hospital medicine. - will sign off, contact our service with any questions. Admission and Anticipated Discharge Date Admission Date: September 24, 2022 Subjective Patient seen and examined at bedside this morning. He is resting in bed, arouses easily to his name. Denies flank or abdominal pain. Febrile this morning. However, he denies fever or chills. No nausea or vomiting. Wade patent and draining light pink urine. Review of Systems Constitutional: as per Subjective / HPI Gastrointestinal: as per Subjective / HPI Genitourinary: + as per Subjective / HPI Physical Exam Constitutional: well developed and well nourished; no acute distress Respiratory: normal respiratory effort; no respiratory distress and no labored breathing Cardiovascular: Extremities: no pedal edema Gastrointestinal (Abdomen): Inspection/Auscultation: abdomen normal to inspection; abdomen not distended Percussion/Palpation: abdomen soft; abdomen nontender Musculoskeletal: Head/Neck/Chest: normocephalic Neurologic: moves all extremities and awake Psychiatric: Orientation: alert and oriented to person Genitourinary: Wade patent and draining clear to light pink urine Results & Data Vital Signs (Past 12 Hours) Vital Signs Temp Pulse Pulse Resp BP Pulse Ox O2 Del Method 09/26/22 08:02 38.2 C H 95 H 18 125/63 95 Room Air 09/26/22 03:27 37.2 C 91 H 14 135/76 96 Room Air 09/25/22 23:17 36.7 C 73 20 125/68 95 Room Air PG Care Time/CCT Total # of Minutes Spent Total Time Spent with Patient: Total time spent is greater than 50% in coordination of care (as documented) at patient's floor/unit and/or counseling patient: Coding Level of Care Code 01242 SUB INP/OBS CARE 1/25MIN Diagnoses Right distal ureteral calculus N20.1 UTI (urinary tract infection) N39.0 BPH w urinary obs/LUTS N40.1; N13.8
--- NOTE | 2022-09-26 17:48 | Hospitalist Progress Note ---
Date of Service September 26, 2022 Assessment & Plan (1) UTI (urinary tract infection): Plan: complicated UTI, has bladder stone, 7mm right ureteral stone, cystitis seen on CT Concern for bladder outlet obstruction follow-up/repeat TURP has been scheduled for about 2 weeks from now We will resume Eliquis and aspirin need to be held prior to TURP as an outpatient Urinalysis from 09/22/2022 as outpatient shows gram-negative bacilli acinetobacter Baumannii, continues Gr NEg bacilli >[id number] Continue empiric cefepime, low-grade temperature post procedure likely may be inflammatory Tamsulosin and finasteride Consult urology, cysto stent and stone removal 09/25, hematuria is cleared catheterization is now with angelica urine (2) Atrial fibrillation: Plan: Atrial fibrillation/hypertension/HFrEF/MVP/PVC history- Will resume apixaban and aspirin as noted Continue Entresto and metoprolol succinate patient has been hemodynamically stable with regard to his chronic systolic heart failure Hold furosemide (3) Cardiomyopathy, dilated, nonischemic: Plan: compensated, last EF 40-45%, on Entresto, metoprolol and will resume furosemide 09/27 (4) PJ (obstructive sleep apnea): Admission and Anticipated Discharge Date Admission Date: September 24, 2022 Subjective Patient was seen he is in a fairly grumpy mood he has many complaints about things with regard to his room in his care wish to get back to [facility]. He did have a low-grade temperature 100.8 at 8 AM we will continue to follow this fever curve prior to considering discharge Physical Exam Physical Exam: Exam is regular lungs are clear Results & Data Results & Data Vital Signs (Past 12 Hours) Vital Signs Temp Pulse Pulse Resp BP Pulse Ox O2 Del Method 09/26/22 16:00 59 L 09/26/22 08:00 71 09/26/22 15:08 98.1 F 61 18 105/63 96 Room Air 09/26/22 13:42 71 17 108/65 98 Room Air 09/26/22 12:10 98.2 F 90 18 97/57 L 97 Room Air 09/26/22 08:02 100.8 F H 95 H 18 125/63 95 Room Air Laboratory Results Reviewed CBC reviewed chemistry PG Care Time/CCT Total # of Minutes Spent Total Time Spent with Patient: Total time spent is greater than 50% in coordination of care (as documented) at patient's floor/unit and/or counseling patient: Coding Level of Care Code 33411 SUB INP/OBS CARE MIN Diagnoses UTI (urinary tract infection) N39.0 Atrial fibrillation I48.91 Atrial fibrillation type: unspecified Cardiomyopathy, dilated, nonischemic I42.0 PJ (obstructive sleep apnea) G47.33 (2) Atrial fibrillation Atrial fibrillation type: unspecified Qualified Code(s): I48.91 - Unspecified atrial fibrillation
[2022-09-26] MEDS: TAMSULOSIN HCL 0.4 MG CAP PO SCH (20:32)
[2022-09-26] MEDS: SIMVASTATIN 40 MG TAB PO SCH (20:32)
[2022-09-27 06:16] LABS: Basophils # (auto) 0.06 K/uL (0-0.2); Basophils % (auto) 0.7 %; Eosinophils # (auto) 0.55 K/uL (0-0.50); Eosinophils % (auto) 6.8 %; Hematocrit (blood only) 29.8 % (42.0-52.0); Hemoglobin 9.7 g/dl (14.0-18.0); Immature Granulocytes # (auto) 0.04 K/uL (0.01-0.20); Immature Granulocytes % (auto) 0.5 %; Lymphocytes # (auto) 1.36 K/uL (1.2-3.4); Lymphocytes % (auto) 16.7 %; Mean Corpuscular Hgb Conc 32.6 g/dL (32.0-36.0); Mean Corpuscular Volume 85.9 fL (80.0-100.0); Mean Platelet Volume 9.4 fL (9.4-12.4); Monocytes # (auto) 1.13 K/uL (0.11-0.59); Monocytes % (auto) 13.9 %; Neutrophils # (auto) 4.99 K/uL (1.40-6.50); Neutrophils % (auto) 61.4 %; Platelet Count 273 K/uL (130-400); RDW Coefficient of Variation 14.1 % (11.5-14.5); RDW Standard Deviation 43.6 fL (36.4-46.3); Red Blood Count 3.47 M/uL (4.70-6.10); White Blood Count 8.13 K/ul (4.8-10.8)
--- NOTE | 2022-09-27 06:24 | Electrocardiogram Report ---
Test Reason : Blood Pressure : / mmHG Vent. Rate : 104 BPM Atrial Rate : 000 BPM P-R Int : 000 ms QRS Dur : 098 ms QT Int : 356 ms P-R-T Axes : 000 -19 092 degrees QTc Int : 468 ms Atrial fibrillation with rapid ventricular response with premature ventricular or aberrantly conducte d complexes Nonspecific ST and T wave abnormality Abnormal ECG When compared with ECG of 14-APR-2022 15:45, Atrial fibrillation has replaced Sinus rhythm Confirmed by Julio Bedoya ([id number]) on 09/27/2022 6:24:25 AM Referred By: REFERRED SELF Confirmed By:Julio Bedoya
[2022-09-27 06:35] LABS: Albumin Level 2.8 gm/dl (3.4-5.0); BUN Creatinine Ratio 23.9 (10-20); Bilirubin,Total 0.7 mg/dl (0.2-1.0); Calcium 8.5 mg/dl (8.6-10.3); Creatinine Clr Calc Pharmacy 55.7 ml/min; Est GFR (African American) 70.3 ml/min; Est GFR (Non-African American) 60.6 ml/min; Globulin 2.9 gm/dl (2.5-4.0); Magnesium 1.9 mg/dl (1.7-2.4); Potassium 3.8 mmol/L (3.5-5.1); Total Protein 5.7 gm/dl (6.0-8.3)
[2022-09-27] MEDS ORDERED: ASPIRIN 81 MG ECTAB PO SCH (09:00)
[2022-09-27] MEDS ORDERED: APIXABAN 5 MG TABLET PO SCH (09:00)
[2022-09-27] MEDS: METOPROLOL SUCC 25MG EXT REL TAB PO SCH (10:17)
[2022-09-27] MEDS: INSULIN ASPART PER UNIT CHARGE SC SCH (10:18)
[2022-09-27] MEDS: CETIRIZINE HCL 10 MG TABLET PO SCH (10:18)
[2022-09-27] MEDS: VALSARTAN/SACUBITRIL 51/49 MG TAB PO SCH (10:18)
[2022-09-27] MEDS: FINASTERIDE 5 MG TAB PO SCH (10:18)
[2022-09-27] MEDS: CEFEPIME 2,000 MG in SYRINGE 0 ML IV SCH (10:46)
--- NOTE | 2022-09-27 14:44 | Discharge Summary ---
Date of Service September 27, 2022 Admission HPI Per Admitting Provider The patient is a 82-year-old male with a past medical history including lumbar spinal stenosis, PJ, gait apraxia, wheelchair-bound, HFrEF, AIVR, atrial fibrillation, BPH, stroke, cervical spine stenosis and mitral valve prolapse. He has been [facility] due to issues with enlarged prostate and bladder outlet obstruction, and has had a Wade catheter placed with recurrent urinary tract infections. The patient has had difficulty coordinating antibiotics being sent to his outpatient pharmacy and then to his home, where he is no longer living, and not being sent to [facility], where he is living. His most recent urinalysis on 09/22/2022 growing gram-negative bacilli, has a prescription for nitrofurantoin on his record, but has not had this filled because of the above. He was supposed to have a TURP performed recently, but had not had his Eliquis stopped, and therefore cannot have it done. He says he is rescheduled for 2 weeks to have a TURP procedure done, and needs to be off of Eliquis for 3 days prior to that. Principal Diagnosis sepsis due to uti poa, this is catheter associated right ureteral stent placed metabolic encephalopathy resolved Discharge Exam this pt is stable, cardiac is regular, no abdominal pain Discharge Data Allergies Allergy/AdvReac Type Severity Reaction Status Date / Time Penicillins Allergy Severe Dizziness Verified 09/24/22 21:58 & SHORTNESS OF BREATH Consultations 09/24/22 22:14 ED Decision to Admit Stat 09/24/22 23:06 Consult Urology Routine Procedures Performed Operation Date: 09/25/22 12:40 Actual Procedures p Cystoscopy, Retrograde Pyelogram, Right Ureteral Stent Placement(Right) - Balta Mejia MD Ordered Studies 09/24/22 20:17 CT cervical spine wo con Stat CT head/brain wo con Stat 09/24/22 21:56 CT abd pelvis IV con only Stat 09/25/22 11:00 FL retrograde includes kub Routine Hospital Course (1) UTI (urinary tract infection): complicated UTI, has bladder stone, 7mm right ureteral stone, cystitis seen on CT Concern for bladder outlet obstruction prompted cysto and stent follow-up/repeat TURP has been scheduled for about 2 weeks from d/c approx 10/16 We will resume Eliquis and aspirin need to be held prior to TURP as an outpatient Urinalysis from 09/22/2022 as outpatient shows gram-negative bacilli acinetobacter Baumannii, continues Gr Neg bacilli >[id number] will be d/c on cipro Tamsulosin and finasteride (2) Atrial fibrillation: Atrial fibrillation/hypertension/HFrEF/MVP/PVC history- apixaban and aspirin Continue Entresto and metoprolol succinate patient has been hemodynamically stable with regard to his chronic systolic heart failure (3) Cardiomyopathy, dilated, nonischemic: compensated, last EF 40-45%, on Entresto, metoprolol and will resume furosemide 09/27 (4) PJ (obstructive sleep apnea): Total Time Total Time Spent Total Time Spent (In Minutes): It required greater than 30 minutes to prepare this patient for discharge Discharge Plan Discharge Items Patient Disposition: Home - Home Health Services Reason For Visit: SEPSIS DUE TO UTI Discharge Diagnosis: sepsis due to uti poa, this is catheter associated right ureteral stent placed metabolic encephalopathy resolved Activity: Resume your previous activity Activity Comment: home PT Non-emergency contact: Primary Care Provider Call non-emergency contact if: your symptoms worsen Follow-up/Referrals: Johnna [email or web address] [Primary Care Provider] - Diet: Regular Addtl Attending Provider Instructions: please finish all antibiotivs and follow up with urology Addtl [employer]ft 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 Maintain current Wade catheter until your surgery on 10/16. Call urology office if you have any issues with your catheter. Pending Studies at Discharge: No Stand-Alone Forms: My [facility] Mila, Smoking Cessation Medications and DC Order Prescriptions: New ciprofloxacin HCl [Cipro] 500 mg tablet 500 mg PO BID Qty: 14 0RF Continued Eliquis 5 mg tablet 5 mg PO BID metoprolol succinate 25 mg tablet extended release 24 hr 25 mg PO BID meclizine 12.5 mg Tablet 12.5 mg PO Q6H PRN (Reason: dizziness/vertigo) Qty: 20 0RF melatonin 3 mg Tablet 3 mg PO HS PRN (Reason: sleep) Qty: 30 0RF simvastatin 40 mg Tablet 40 mg PO QPM ipratropium bromide 21 mcg (0.03 %) Brandon,Non-Aerosol 2 spray INTRANASAL TID PRN (Reason: Runny Nose) Rx Instructions: administer into each nostril Pepcid Complete 10-800-165 mg Tablet,Chewable 1 tab PO BID PRN (Reason: Acid Reflux) acetaminophen [Tylenol] 325 mg Capsule 650 mg PO Q4H PRN (Reason: PAIN/FEVER) aspirin 81 mg tablet,delayed release (DR/EC) 81 mg PO QAM furosemide 20 mg tablet 20 mg PO QAM Patient Comments: TAKES ADDITIONAL TABLET FOR EDEMA finasteride 5 mg tablet 5 mg PO QAM silodosin 4 mg capsule 4 mg PO HS furosemide 20 mg tablet 20 mg PO QAM PRN (Reason: EDEMA/WEIGHT GAIN) Rx Instructions: TAKE IN ADDITION TO SCHEDULED DOSE, IF NEEDED cetirizine 5 mg Tablet 5 mg PO QAM Qty: 30 0RF Entresto 49-51 mg Tablet 1 tab PO BID Qty: 60 0RF Discontinued nitrofurantoin monohyd/m-cryst [Macrobid] 100 mg capsule 100 mg PO Q12H 7 Days Qty: 14 0RF Rx Instructions: BEGIN 09/25/22, END 10/02/22. TAKE WITH A MEAL OR FOOD. fosfomycin tromethamine 3 gram packet 1 packet PO ONCE Rx Instructions: TAKE ONE PACKET, ONE TIME, AT 8AM, ON 09/25/22 FOR INFECTION. Discharge Orders: Discharge Order (Routine); Ordered 09/27/22 Ordered By: Kishor Booth/Other Patient Handouts: Prediabetes, 5 Steps for Eating Healthier Admission Data Admit Date/Time: 09/24/22 23:22 Attending Provider: Kishor Jaeger Admit Provider: Carl Stephen Primary Care Provider: Johnna [email or web address] Other Providers: Carl Stephen ; Balta Mejia Other Interventions: Discharge Summary Assessment (RN) Last Done: 09/27/22 10:47 Coding Level of Care Code 99363 INP/OBS DISCH >30 MIN Diagnoses UTI (urinary tract infection) N39.0 Atrial fibrillation I48.91 Atrial fibrillation type: unspecified Cardiomyopathy, dilated, nonischemic I42.0 PJ (obstructive sleep apnea) G47.33
--- NOTE | 2022-09-30 14:33 | Coding Query ---
PRESENT ON ADMISSION QUERY To promote full compliance with coding requirements relating to pateint care, physician participation is requested in all cases of formula room worker uncertainty. Please assist us with the question(s) below: Please place an X within the parenthesis (x). The following diagnosis listed in this patient's medical record require physician assistance to determine if they were present on admission (POA) or not. Please advise for each diagnosis whether it was present on admission, not present on admission, or if it was clinically undetermined. 1. METABOLIC ENCEPHALOPATHY (documented on Discharge Summary) (xxx) Present On Admission ( ) Not Present On Admission ( ) Clinically Undetermined Thank you Shari Gillette *Definition of the present on admission (POA)-Present on admission is defined as present at the time the order for inpatient admission occurs. Conditions that develop during an outpatient encounter prior to a written order for inpatient admission (including emergency department, observation, or outpatient surgery) are considered present on admission. MTDD
== END 2022-09-27 11:34 | disposition home health service (06) | DRG 659 ==
LOC: ED 20:05 → SUATTDRO 23:22 → 2N 23:22